=== PATIENT | female | born 1960 | race Caucasian/White ===

== ENCOUNTER 2022-08-09 11:28 | Outpatient (CLI) | payer BC, SELFPAY ==
[2022-08-09 18:39] LABS: Basophils Absolute Auto 0.1 K/mm3 (0.0-0.1); Eosinophils Absolute Auto 0.1 K/mm3 (0-0.3); Eosinophils Percent Auto 2.5 % (0-4.4); Hematocrit 41.4 % (37.0-47.0); Hemoglobin 13.8 g/dL (12.0-15.0); Immature Granulocyte Absolute 0.01 K/mm3 (0.00-0.031); Immature Granulocyte Percent A 0.2 % (0-0.5); Lymphocytes Absolute Auto 1.27 K/mm3 (0.9-3.2); Mean Corpuscular HGB Conc 33.3 g/dl (32-36); Monocytes Absolute Auto 0.5 K/mm3 (0.1-0.6); Neutrophils Percent Auto 60.3 % (45.5-73.1); Platelet Count Result 309 k/mm3 (150-375); Red Blood Count 4.45 M/mm3 (4.2-5.4); Red Cell Distribution Width 13.2 % (11.5-14.5); White Blood Count 4.9 K/mm3 (4.5-10.0)
[2022-08-09 20:13] LABS: Vitamin D 25 Hydroxy 20.9 ng/mL
[2022-08-09 20:25] LABS: Alanine Aminotransferase 46 U/L (6-35); Albumin Level 4.7 g/dL (3.5-5.1); Alkaline Phosphatase 100 U/L (38-126); Anion Gap 11 mmol/L (8-16); Aspartate Amino Transferase 73 U/L (14-36); Bilirubin,Total 0.4 mg/dL (0.2-1.3); Blood Urea Nitrogen 14 mg/dL (7-17); Calcium 9.8 mg/dL (8.4-10.2); Carbon Dioxide 28 mmol/L (22-30); Chloride 94 mmol/L (98-107); Cholesterol 244 mg/dL (0-200); Estimated Glomerular Filt Rate > 60; Glucose 107 mg/dL (65-110); HDL Direct 60 mg/dL; Potassium 3.8 mmol/L (3.4-5.0); Sodium 133 mmol/L (137-145); Triglycerides 150 mg/dL (<150)
[2022-08-09 20:37] LABS: LDL Cholesterol Direct 134 mg/dL
[2022-08-09 20:46] LABS: Hemoglobin A1C 6.1 % (<5.7)
[2022-08-09 21:19] LABS: Vitamin B12 > 1000.0 pg/mL (239-931)
== END 2022-08-09 11:29 | disposition home or self-care (01) ==
PROVIDERS: PCP Family Medicine; Visit Provider Family Medicine
DX: Z00.00 Encounter for general adult medical examination without abnormal findings (principal); E03.9 Hypothyroidism, unspecified; J45.909 Unspecified asthma, uncomplicated; T78.40XA Allergy, unspecified, initial encounter; F41.9 Anxiety disorder, unspecified; M19.90 Unspecified osteoarthritis, unspecified site; G43.909 Migraine, unspecified, not intractable, without status migrainosus; M81.0 Age-related osteoporosis without current pathological fracture; H40.9 Unspecified glaucoma; G62.9 Polyneuropathy, unspecified
CPT/HCPCS: 36415; 80053; 80061; 82306; 82607; 83036; 84443; 85025

== ENCOUNTER 2022-09-20 14:09 | Outpatient (CLI) | payer BC, SELFPAY ==
[2022-09-20 19:19] LABS: Alanine Aminotransferase 38 U/L (6-35); Albumin Level 4.4 g/dL (3.5-5.1); Alkaline Phosphatase 87 U/L (38-126); Aspartate Amino Transferase 47 U/L (14-36); Bilirubin,Total 0.3 mg/dL (0.2-1.3)
[2022-09-20 19:57] LABS: Hepatitis B Surface Antigen Negative (Negative)
[2022-09-20 20:03] LABS: HAV RESULT Negative (Negative); Hepatitis B Core IgM Result Negative (Negative)
[2022-09-20 20:15] LABS: Hepatitis C Virus Antibody Negative (Negative)
== END 2022-09-20 14:10 | disposition home or self-care (01) ==
LOC: ANHBWCLAB 14:11
PROVIDERS: PCP Family Medicine; Visit Provider Family Medicine
DX: R74.8 Abnormal levels of other serum enzymes (principal)
CPT/HCPCS: 36415; 80074; 80076

== ENCOUNTER → 2022-10-11 09:14 | Outpatient (CLI) | payer BC, SELFPAY ==
--- NOTE | ~2022-10-11 | US_ITS ---
US abdomen limited INDICATION: Elevated liver function tests. PROCEDURE: Realtime right upper abdominal ultrasound. COMPARISON: No prior studies for comparison. FINDINGS: The pancreas is normal without focal mass or pancreatic ductal dilation. Liver echotexture is increased, consistent with fatty infiltration. There is normal directional flow in the portal ve in. The gallbladder is normal without stones, gallbladder wall thickening or pericholecystic fluid. Comm on bile duct measures 4 mm. No sonographic Vivas's sign. IMPRESSION: 1: Hepatic steatosis. Reviewed, dictated and finalized at location A. OR PROPERTY MANAGER IMPRESSION: 1: Hepatic steatosis.
== END ==
PROVIDERS: PCP Family Medicine; Visit Provider Family Medicine
DX: R74.8 Abnormal levels of other serum enzymes (principal); R10.11 Right upper quadrant pain; K76.0 Fatty (change of) liver, not elsewhere classified
CPT/HCPCS: 76705

== ENCOUNTER 2022-11-29 09:46 | Outpatient (CLI) | payer BC, SELFPAY ==
[2022-11-29 10:30] LABS: Basophils Absolute Auto 0.1 K/mm3 (0.0-0.1); Basophils Percent Auto 1.2 % (0.2-1.2); Eosinophils Absolute Auto 0.2 K/mm3 (0-0.3); Eosinophils Percent Auto 3.3 % (0-4.4); Hematocrit 38.7 % (37.0-47.0); Hemoglobin 13.1 g/dL (12.0-15.0); Immature Granulocyte Absolute 0.01 K/mm3 (0.00-0.031); Immature Granulocyte Percent A 0.2 % (0-0.5); Lymphocytes Absolute Auto 1.31 K/mm3 (0.9-3.2); Lymphocytes Percent Auto 26.8 % (18.3-44.2); Mean Corpuscular HGB Conc 33.9 g/dl (32-36); Mean Corpuscular Hemoglobin 30.8 pg (26-34); Mean Corpuscular Volume 90.8 fl (80-100); Mean Platelet Volume 9.6 fl (7.4-10.4); Monocytes Absolute Auto 0.4 K/mm3 (0.1-0.6); Neutrophils Absolute Auto 2.9 K/mm3 (1.3-6.7); Neutrophils Percent Auto 59.5 % (45.5-73.1); Platelet Count Result 291 k/mm3 (150-375); Red Blood Count 4.26 M/mm3 (4.2-5.4); Red Cell Distribution Width 12.7 % (11.5-14.5); White Blood Count 4.9 K/mm3 (4.5-10.0)
[2022-11-29 10:41] LABS: Alanine Aminotransferase 40 U/L (6-35); Albumin Level 4.3 g/dL (3.5-5.1); Alkaline Phosphatase 90 U/L (38-126); Anion Gap 8 mmol/L (8-16); Aspartate Amino Transferase 34 U/L (14-36); Bilirubin,Total 0.4 mg/dL (0.2-1.3); Blood Urea Nitrogen 13 mg/dL (7-17); Calcium 9.2 mg/dL (8.4-10.2); Carbon Dioxide 26 mmol/L (22-30); Chloride 98 mmol/L (98-107); Estimated Glomerular Filt Rate > 60; Glucose 98 mg/dL (65-110); Potassium 3.7 mmol/L (3.4-5.0); Sodium 132 mmol/L (137-145)
[2022-11-29 10:43] LABS: Hemoglobin A1C 5.8 % (<5.7)
[2022-11-29 11:31] LABS: Vitamin B12 > 1000.0 pg/mL (239-931)
[2022-12-03 08:22] LABS: ANA Cascade Screen Negative (Negative)
[2022-12-03 20:37] LABS: Red Blood Cell Folate 576 ng/mL RBC (>280)
[2022-12-05 04:57] LABS: Homocysteine 6.8 umol/L (<10.4)
[2022-12-05 22:53] LABS: Methylmalonic Acid 92 nmol/L (87-318)
== END 2022-11-29 09:47 | disposition home or self-care (01) ==
LOC: ANHLAB 09:47
PROVIDERS: PCP Family Medicine; Visit Provider Student in an Organized Health Care Education/Training Program
DX: G62.9 Polyneuropathy, unspecified (principal)
CPT/HCPCS: 36415; 80053; 82607; 82747; 83036; 83090; 83921; 84443; 85025; 86038; 86334; 86335

== ENCOUNTER 2022-12-17 13:40 | Outpatient (CLI) | payer BC, SELFPAY ==
--- NOTE | ~2022-12-17 | MR_ITS ---
EXAMINATION: MR lumbar spine wo con DATE: 12/17/2022 14:13 INDICATION: Right-sided lumbar radiculopathy. TECHNIQUE: Magnetic resonance imaging (MRI) of the lumbar spine was performed without intravenous con trast. Sequences included sagittal T2-weighted FSE, sagittal T2-weighted FS FSE, sagittal T1-weighted FSE, and axial T2-weighted FSE. COMPARISON: None FINDINGS: Bone alignment is normal. Vertebral body heights are normal. Intervertebral disc heights ar e normal. The distal spinal cord signal intensity is normal. The conus medullaris is at T12-L1. The f ollowing disc levels are specifically discussed: L1-L2: The disc does not extend beyond the endplate margin. There is mild bilateral facet joint osteo arthritis. There is no neural foraminal stenosis. There is no central canal stenosis. L2-L3: The disc is bulging. There is mild right facet joint osteoarthritis. There is mild bilateral n eural foraminal stenosis. There is mild central canal stenosis. L3-L4: The disc is bulging. There is mild bilateral facet joint osteoarthritis. There is mild bilater al neural foraminal stenosis. There is mild central canal stenosis. L4-L5: The disc is bulging. There is severe bilateral facet joint osteoarthritis. There is mild bilat eral neural foraminal stenosis. There is mild central canal stenosis. L5-S1: The disc is bulging. There is moderate right and severe left facet joint osteoarthritis. There is mild bilateral neural foraminal stenosis. There is mild central canal stenosis. IMPRESSION: 1. Mild lumbar spondylosis. Reviewed, dictated and finalized at location A. ATIONS PROCESSOR IMPRESSION: 1. Mild lumbar spondylosis.
== END 2022-12-17 13:41 | disposition home or self-care (01) ==
LOC: ANHIMG 13:44
PROVIDERS: PCP Family Medicine; Visit Provider Student in an Organized Health Care Education/Training Program
DX: R20.0 Anesthesia of skin (principal); M47.896 Other spondylosis, lumbar region
CPT/HCPCS: 72148

== ENCOUNTER 2022-12-26 17:13 | Emergency (ER) | payer BC, SELFPAY ==
[2022-12-26] VITALS (19 sets, daily range): BP systolic 128–152; BP diastolic 88–104; PULSE 80–99; RESP 14–18; TEMP 36.7–37.2; O2SAT 95–100
--- NOTE | ~2022-12-26 | CT_ITS ---
EXAMINATION: CT abdomen pelvis w con DATE: 12/26/2022 18:38 INDICATION: llq pain, bloody diarrhea, hx diverticulitis TECHNIQUE: Computed tomography (CT) of the abdomen and pelvis was performed with intravenous contrast . Automated exposure control and iterative reconstruction technique were employed. The dose-length pr oduct was 948.91 mGy-cm. COMPARISON: None. FINDINGS: Lower thorax: Dependent atelectasis. Liver: Hepatomegaly. Diffuse fatty infiltration. Biliary/Gallbladder: Gallbladder is normal. No bile duct dilation. Pancreas: No mass or duct dilation. Spleen: Normal. Adrenals:No mass. Kidneys: No suspicious mass, stone, or hydronephrosis. Bilateral hypodensities, too small to characte rize but most likely represent cysts. GI tract: No small or large bowel dilation. Marked colonic wall edema involving the distal transverse colon and hepatic flexure, and to a lesser extent in the descending colon. Pericolonic inflammation at the hepatic flexure. Normal appendix. Uniform bowel wall enhancement. Diverticulosis without diver ticulitis. Mesentery/Peritoneum: No ascites, mass, or free air. Retroperitoneum: No mass. Mild atherosclerotic abdominal aortic and/or arterial calcifications. Pelvis: Pelvic organs are within normal limits. Soft Tissues: Soft tissues and body wall unremarkable. Bones: No acute osseous finding. IMPRESSION: Distal transverse colon, hepatic flexure, and descending colon wall edema and inflammatory changes, m ore consistent with infectious, inflammatory, or ischemic colitis rather than diverticulitis. Reviewed, dictated and finalized at location K. ENT FINANCIAL ADVOCATE IMPRESSION: Distal transverse colon, hepatic flexure, and descending colon wall edema and i nflammatory changes, more consistent with infectious, inflammatory, or ischemic colitis rather than diverticulitis.
--- NOTE | 2022-12-26 17:29 | ED.ABDPAIN ---
HPI - Abdominal Pain General Chief Complaint: Abdominal Pain <MC Carr Last Filed: 12/26/22 21:58> Stated Complaint: abd pain with blood in stool <MC Carr Last Filed: 12/26/22 21:58> Time Seen by Provider: 12/26/22 17:20 <MC Carr Last Filed: 12/26/22 21:58> History of Present Illness HPI narrative: 62 year old female with a history of diverticulitis, hypothyroidism here for evaluation of left lower quadrant abdominal pain over the past day. Patient states that she woke up with a crampy sensation in her lower abdomen that has remained throughout the day. The pain is severe in nature, coming in waves. States that she has had little appetite over the past day and has had associated nausea. Notes about 10 episodes of stool, several of which have had bright red blood mixed in. Has a history of diverticulitis and hemorrhoids, believes that she had blood in her stool with her last bout about 5 years ago. She has since had a colonoscopy that was reassuring. Denies any fevers, chills, chest pain, shortness of breath. Had a slight headache earlier today that resolved after taking her sumatriptan. She does not take blood thinner medicines. <MC Carr Last Filed: 12/26/22 21:58> Related Data Home Medications: Home Medications Medication Instructions Recorded Confirmed gabapentin 300 mg capsule 300 mg PO TID 08/09/22 lansoprazole 30 mg capsule,delayed 30 mg PO DAILY 08/09/22 release (Prevacid) levothyroxine 88 mcg capsule 88 mcg PO DAILY 08/09/22 losartan 100 1 tablet PO DAILY 08/09/22 mg-hydrochlorothiazide 25 mg tablet metformin 1,000 mg tablet 1,000 mg PO DAILY 08/09/22 rizatriptan 10 mg tablet 10 mg PO ONCE 08/09/22 timolol 0.5 % eye drops 1 drp EACH EYE Q12H 08/09/22 latanoprost 0.005 % eye drops, 1 drp EACH EYE QPM 10/18/22 emulsion <MC Carr Last Filed: 12/26/22 21:58> Allergies/Adverse Reactions: Allergies Allergy/AdvReac Type Severity Reaction Status Date / Time azithromycin AdvReac Severe dizzy Verified 12/26/22 17:18 <Irina Clark PA-C - Last Filed: 12/26/22 21:58> Review of Systems Review of Systems: Gen.: Denies fevers or chills Eyes: Denies eye pain or visual change ENT: Denies congestion Respiratory: Denies shortness of breath or cough CV: Denies chest pain or palpitations GI: Reports abdominal pain, nausea and diarrhea denies burning, urgency, frequency or hematuria Musculoskeletal: Denies back pain or muscle pain Neuro: Denies numbness, tingling, weakness or focal weakness Skin: Denies rash Except as documented, all other systems reviewed and negative <MC Carr Last Filed: 12/26/22 21:58> FOR[facility]LY [facility], [facility] Family History Family History: Family History Father Diabetes mellitus Hypertension Heart disease Mother Hypertension Disorder of thyroid Sibling Alcohol abuse Asthma Diabetes mellitus Depression <MC Carr Last Filed: 12/26/22 21:58> Social History Social History: Social History Smoking status: Never smoker Alcohol intake: never Substance use: never Substance use type: does not use Lack of Transportation: No Lack of Food: Never True Current Housing: I Have Housing Concerned About Future Housing: No Difficulty Paying Gas/Electric Bills: No Difficulty Paying for Meds: No Currently Unemployed: No Education: High School Diploma/GED Difficulty w/ Childcare or Family Care: No Living arrangements: with family Occupation/Education: occupation Additional occupation/education comments: [employer] service Gender identity (if verbalized by the patient): Female Agree to blood products: Yes <MC Carr [facility]
[2022-12-26] MEDS: ONDANSETRON INJ 4 MG/2 ML VIAL IV PUSH (17:52)
[2022-12-26] MEDS: MORPHINE SULFATE (*CRX) 4 MG/ML INJ IV PUSH (17:55)
[2022-12-26] MEDS: SODIUM CHLORIDE 0.9% IV 1,000 ML 999 ML IV CONT (17:58)
[2022-12-26 18:04] LABS: Basophils Percent Auto 0.3 % (0.2-1.2); Eosinophils Absolute Auto 0.1 K/mm3 (0-0.3); Eosinophils Percent Auto 0.7 % (0-4.4); Hematocrit 39.6 % (37.0-47.0); Hemoglobin 14.1 g/dL (12.0-15.0); Immature Granulocyte Absolute 0.02 K/mm3 (0.00-0.031); Immature Granulocyte Percent A 0.2 % (0-0.5); Lymphocytes Absolute Auto 1.42 K/mm3 (0.9-3.2); Lymphocytes Percent Auto 15.1 % (18.3-44.2); Mean Corpuscular HGB Conc 35.6 g/dl (32-36); Mean Corpuscular Hemoglobin 31.1 pg (26-34); Mean Corpuscular Volume 87.4 fl (80-100); Mean Platelet Volume 9.6 fl (7.4-10.4); Monocytes Absolute Auto 0.7 K/mm3 (0.1-0.6); Monocytes Percent Auto 7.6 % (2.6-8.5); Neutrophils Absolute Auto 7.1 K/mm3 (1.3-6.7); Neutrophils Percent Auto 76.1 % (45.5-73.1); Platelet Count Result 331 k/mm3 (150-375); Red Blood Count 4.53 M/mm3 (4.2-5.4); Red Cell Distribution Width 12.6 % (11.5-14.5); White Blood Count 9.4 K/mm3 (4.5-10.0)
[2022-12-26 18:14] LABS: Prothrombin Time 12.3 Seconds (11.1-14.7)
[2022-12-26 18:15] LABS: Partial Thromboplastin Time 25.6 SECONDS (22.3-36.8)
[2022-12-26 18:22] LABS: Alanine Aminotransferase 37 U/L (6-35); Albumin Level 4.9 g/dL (3.5-5.1); Alkaline Phosphatase 105 U/L (38-126); Anion Gap 8 mmol/L (8-16); Aspartate Amino Transferase 31 U/L (14-36); Bilirubin,Total 0.6 mg/dL (0.2-1.3); Blood Urea Nitrogen 13 mg/dL (7-17); Calcium 9.7 mg/dL (8.4-10.2); Carbon Dioxide 26 mmol/L (22-30); Chloride 97 mmol/L (98-107); Estimated CRCL calculation 106 ml/min; Estimated Glomerular Filt Rate > 60; Glucose 113 mg/dL (65-110); Lipase 44 U/L (23-300); Potassium 3.6 mmol/L (3.4-5.0); Sodium 131 mmol/L (137-145)
--- NOTE | 2022-12-26 18:36 | PC.NURSE ---
Patient off unit to CT.
--- NOTE | 2022-12-26 19:19 | PC.NURSE ---
Patient report given to RUTHANN Washburn and RUTHANN Jimenez. All questions answered and care of patient transferred.
[2022-12-26 19:28] LABS: Appearance Urine Clear (Clear); Bilirubin Urine Negative (Negative); Blood Urine Trace-lysed (Negative); Color Urine Yellow (Yellow); Glucose Urine UA Negative (Negative); Ketones Urine Negative (Negative); Leukocyte Esterase Ur Negative LEU/UL (Negative); Nitrate Urine Negative (Negative); Protein Urine Negative (Negative); Specific Grav Ur <= 1.005 (1.001-1.035); Urobilinogen Urine 0.2 mg/dL (<2.0)
[2022-12-26 19:37] LABS: Mucus Urine Rare /lpf; Squamous Epithelial Cell Urine Rare /hpf (Few); WBC Urine 0-3 /hpf
[2022-12-26 19:38] LABS: Add Urine Microscopic? YES
[2022-12-26] MEDS: CIPROFLOXACIN 500 MG TAB PO (20:54)
[2022-12-26] MEDS: metroNIDAZOLE 250 MG TABLET 500 MG PO (20:54)
== END 2022-12-26 20:57 | disposition home or self-care (01) ==
PROVIDERS: Emergency Medicine; Emergency Provider Physician Assistant; PCP Family Medicine
DX: K52.9 Noninfective gastroenteritis and colitis, unspecified (principal); E03.9 Hypothyroidism, unspecified
CPT/HCPCS: 36415; 74177; 80053; 81001; 83690; 85025; 85610; 85730; 96361; 96374; 96375; 99284; A9270; J2270; J2405; J7030; Q9967

== ENCOUNTER 2023-01-22 10:17 | Outpatient (CLI) | payer BC, SELFPAY ==
[2023-01-22 11:39] LABS: Hematocrit 38.5 % (37.0-47.0); Hemoglobin 13.3 g/dL (12.0-15.0); Mean Corpuscular HGB Conc 34.5 g/dl (32-36); Mean Corpuscular Hemoglobin 30.4 pg (26-34); Mean Corpuscular Volume 87.9 fl (80-100); Mean Platelet Volume 9.8 fl (7.4-10.4); Platelet Count Result 309 k/mm3 (150-375); Red Blood Count 4.38 M/mm3 (4.2-5.4); Red Cell Distribution Width 12.4 % (11.5-14.5); White Blood Count 6.2 K/mm3 (4.5-10.0)
[2023-01-22 12:07] LABS: Alanine Aminotransferase 33 U/L (6-35); Albumin Level 4.8 g/dL (3.5-5.1); Alkaline Phosphatase 104 U/L (38-126); Anion Gap 8 mmol/L (8-16); Aspartate Amino Transferase 28 U/L (14-36); Bilirubin,Total 0.7 mg/dL (0.2-1.3); Blood Urea Nitrogen 10 mg/dL (7-17); CRP 2.4 mg/dL (<1.0); Calcium 9.8 mg/dL (8.4-10.2); Carbon Dioxide 30 mmol/L (22-30); Chloride 96 mmol/L (98-107); Estimated Glomerular Filt Rate > 60; Glucose 114 mg/dL (65-110); Potassium 3.8 mmol/L (3.4-5.0); Sodium 134 mmol/L (137-145)
[2023-01-22 12:44] LABS: Erythrocyte Sedimentation Rate 34 mm/hr (0-20)
== END 2023-01-22 10:18 | disposition home or self-care (01) ==
LOC: ANHLAB 10:19
PROVIDERS: PCP Family Medicine; Visit Provider Nurse Practitioner Family
DX: R10.9 Unspecified abdominal pain (principal); R11.0 Nausea; R19.7 Diarrhea, unspecified
CPT/HCPCS: 36415; 80053; 85027; 85652; 86140

== ENCOUNTER 2023-01-24 11:25 | Outpatient (CLI) | payer BC, SELFPAY ==
[2023-01-24 19:11] LABS: Toxigenic C. Diff NEGATIVE (NEGATIVE)
== END 2023-01-24 11:26 | disposition home or self-care (01) ==
LOC: ANHLAB 11:27
PROVIDERS: PCP Family Medicine; Visit Provider Nurse Practitioner Family
DX: R11.0 Nausea (principal); R10.9 Unspecified abdominal pain; R19.7 Diarrhea, unspecified
CPT/HCPCS: 87045; 87177; 87209; 87269; 87427; 87493

== ENCOUNTER 2023-02-12 01:45 | Day surgery (SDC) | payer BC, SELFPAY ==
[2023-01-28 13:05] VITALS: BMI 35.9
[2023-02-12 08:08] VITALS: BP 136/95; PULSE 102; RESP 18; TEMP 36; O2SAT 100
[2023-02-12] MEDS: LACTATED RINGERS 1,000 ML 150 ML IV CONT (08:17)
--- NOTE | 2023-02-12 08:18 | WPDHPUPDATE1 ---
History and Physical Update Update Date/Time: 02/12/23 08:18 History and Physical has been reviewed, including an updated exam of the patient. There are NO changes in the patient's condition. Risks, benefits, and alternatives have been discussed and questions answered. Patient agrees to proceed with procedure.
[2023-02-12 08:21] LABS: Glucose Point of Care 125 mg/dl (65-105)
--- NOTE | 2023-02-12 08:28 | WPDANESEPPF ---
Anes - Initial Pre Proc Eval Procedure: Operation Date: 02/12/23 09:30 Proposed Procedures p Colonoscopy - Jose Jerez MD Date/Time: 02/12/23 08:28 Surgeon: Jose Jerez MD Pre Op Diagnosis: abnormal CAT scan,diarrhea,Lower abdom.pain Patient Data Age: 62 Gender: F Height: 1.6 m Weight: 90.5 kg Last Vital Signs Temp 36.0 C L 02/12/23 08:08 Pulse 102 H 02/12/23 08:08 Resp 18 02/12/23 08:08 BP 136/95 H 02/12/23 08:08 Pulse Ox 100 02/12/23 08:08 O2 Del Method Room Air 02/12/23 08:08 Allergies Allergy/AdvReac Type Severity Reaction Status Date / Time azithromycin AdvReac Severe dizzy Verified 02/12/23 07:57 Home Medications Medication Instructions Recorded Confirmed Type gabapentin 300 mg capsule 300 mg PO TID 08/09/22 02/12/23 History lansoprazole 30 mg capsule,delayed 30 mg PO DAILY 08/09/22 02/12/23 History release (Prevacid) levothyroxine 88 mcg capsule 88 mcg PO DAILY 08/09/22 02/12/23 History losartan 100 1 tablet PO DAILY 08/09/22 02/12/23 History mg-hydrochlorothiazide 25 mg tablet metformin 1,000 mg tablet 1,000 mg PO DAILY 08/09/22 02/12/23 History timolol 0.5 % eye drops 1 drp EACH EYE Q12H 08/09/22 02/12/23 History fluticasone 250 mcg-salmeterol 50 1 inh inhalation BID #60 ea 09/20/22 02/12/23 Rx mcg/dose blistr powdr for inhalation (Advair Diskus) cetirizine 10 mg tablet (Zyrtec) 10 mg PO DAILY #90 tabs 10/14/22 02/12/23 Rx mometasone 50 mcg/actuation nasal 2 spray intranasal DAILY #17 grams 10/14/22 02/12/23 Rx spray latanoprost 0.005 % eye drops, 1 drp EACH EYE QPM 10/18/22 02/12/23 History emulsion rizatriptan 10 mg tablet See Rx Instructions PO .COMPLEX 10/31/22 02/12/23 Rx #30 tabs cholecalciferol (vitamin D3) 1,250 1,250 mcg PO WEEKLY #14 caps 11/22/22 02/12/23 Rx mcg (50,000 unit) capsule Laboratory Tests 02/12/23 08:19 POC Capillary Glucose 125 mg/dl H mg/dl (65-105) Patient hx anesthesia problems: none Family hx anesthesia problems: none Results Review: All pre-operative results and documents have been reviewed as part of the pre-operative evaluation. FORMERLY [facility] Past Medical History Medical History (Updated 02/12/23 @ 08:30 by Lonnie Cordoba MD) Abdominal pain Arthritis Asthma Diarrhea Glaucoma Hypertension Hypothyroidism YAJAIRA (obstructive sleep apnea) Osteoporosis Family History Family History Father Diabetes mellitus Hypertension Heart disease Mother Hypertension Disorder of thyroid Sibling Alcohol abuse Asthma Diabetes mellitus Depression Social History Social History Smoking status: Never smoker Alcohol intake: never Substance use: never Substance use type: does not use Lack of Transportation: No Lack of Food: Never True Current Housing: I Have Housing Concerned About Future Housing: No Difficulty Paying Gas/Electric Bills: No Difficulty Paying for Meds: No Currently Unemployed: No Education: High School Diploma/GED Difficulty w/ Childcare or Family Care: No Living arrangements: with family Occupation/Education: occupation Additional occupation/education comments: [employer] service Gender identity (if verbalized by the patient): Female Spiritual care concerns: No Agree to blood products: Yes Anes - Eval Final PreProcedure Day of Procedure 02/12/23 08:28 Patient weight: obese Heart: regular rate and rhythm Lungs: clear to auscultation and normal air movement Airway: Mallampati scale class II Neurological: alert and oriented Last oral intake: >/= 8 hours ASA classification: III Emergent: no Anesthetic plan: proceed Anesthesia type and monitoring: general GIVS Results Review: All pre-operative results and documents have been reviewed as part of the pre-operative evaluation. Informed Consent: The patient's a
[2023-02-12 09:12] VITALS: BP 101/66; PULSE 99; RESP 26; O2SAT 97
[2023-02-12 09:22] VITALS: BP 119/86; PULSE 77; RESP 18; O2SAT 99
[2023-02-12 09:32] VITALS: BP 121/81; PULSE 76; RESP 18; O2SAT 97
== END 2023-02-12 09:39 | disposition home or self-care (01) ==
PROVIDERS: PCP Family Medicine; Visit Provider Internal Medicine Gastroenterology
PROC: 0DJD8ZZ Inspection of Lower Intestinal Tract, Via Natural or Artificial Opening Endoscopic (ICD-10-PCS; CPT 45378; principal; 2023-02-12 09:30)
DX: K64.8 Other hemorrhoids (principal); K57.30 Diverticulosis of large intestine without perforation or abscess without bleeding; I10 Essential (primary) hypertension; E03.9 Hypothyroidism, unspecified; J45.909 Unspecified asthma, uncomplicated; H40.9 Unspecified glaucoma; M81.0 Age-related osteoporosis without current pathological fracture; Z79.84 Long term (current) use of oral hypoglycemic drugs; Z79.51 Long term (current) use of inhaled steroids; E66.9 Obesity, unspecified; Z68.35 Body mass index [BMI] 35.0-35.9, adult
CPT/HCPCS: 45378; 82948; J2704; J7120

== ENCOUNTER 2023-02-28 10:00 | Outpatient (CLI) | payer BC, SELFPAY ==
--- NOTE | 2023-02-28 11:00 | NEURO_ITS ---
Impression: Patient reports a history of numbness in toes. # Normal nerve conduction study. # Normal needle/EMG exam. # Clinical correlation recommended. Nerve Conduction Studies Anti Sensory Summary Table Stim Site NR Peak (ms) P-T Amp (?V) Site1 Site2 Delta-P (ms) Dist (cm) Nito (m/s) Left Sup Fibular Anti Sensory (Ant Lat Mall) 14 cm 3.8 5.4 14 cm Ant Lat Mall 3.8 16.0 42 Right Sup Fibular Anti Sensory (Ant Lat Mall) 14 cm 3.5 8.7 14 cm Ant Lat Mall 3.5 16.0 46 Left Sural Anti Sensory (Lat Mall) Calf 4.0 7.1 Calf Lat Mall 4.0 16.0 40 Right Sural Anti Sensory (Lat Mall) Calf 3.6 11.7 Calf Lat Mall 3.6 16.0 44 Motor Summary Table Stim Site NR Onset (ms) O-P Amp (mV) Site1 Site2 Delta-0 (ms) Dist (cm) Nito (m/s) Left Peroneal Motor (Vastus Med) Ankle 4.1 4.1 Popit Ankle 7.9 38.0 48 Popit 12.0 3.3 B Fib Ankle 6.1 28.0 46 B Fib 10.2 3.2 Right Peroneal Motor (Vastus Med) Ankle 3.7 4.8 Popit Ankle 9.3 41.0 44 Popit 13.0 3.8 B Fib Ankle 6.8 31.0 46 B Fib 10.5 3.8 Left Tibial Motor (Abd Mandel Brev) Ankle 4.1 10.8 Knee Ankle 8.5 41.0 48 Knee 12.6 6.2 Right Tibial Motor (Abd Mandel Brev) Ankle 4.1 9.3 Knee Ankle 9.4 42.0 45 Knee 13.5 4.9 F Wave Studies NR F-Lat (ms) L-R F-Lat (ms) Left Peroneal (Mrkrs) (EDB) 49.18 0.19 Right Peroneal (Mrkrs) (EDB) 49.38 0.19 Left Tibial (Mrkrs) (Abd Hallucis) 49.59 0.16 Right Tibial (Mrkrs) (Abd Hallucis) 49.43 0.16 EMG Side Muscle Nerve Root Ins Act Fibs Amp Dur Recrt Comment Right AntTibialis Dp Br Fibular L4-5 Nml Nml Nml Nml Nml Right Gastroc Tibial S1-2 Nml Nml Nml Nml Nml Right Fibularis Long Sup Br Fibular L5-S1 Nml Nml Nml Nml Nml Right Flex Dig Long Tibial L5-S2 Nml Nml Nml Nml Nml Right Ext Dig Brev Dp Br Fibular L5, S1 Nml Nml Nml Nml Nml Left AntTibialis Dp Br Fibular L4-5 Nml Nml Nml Nml Nml Left Gastroc Tibial S1-2 Nml Nml Nml Nml Nml Left Fibularis Long Sup Br Fibular L5-S1 Nml Nml Nml Nml Nml Left Flex Dig Long Tibial L5-S2 Nml Nml Nml Nml Nml Left Ext Dig Brev Dp Br Fibular L5, S1 Nml Nml Nml Nml Nml MTDD
== END 2023-02-28 10:01 | disposition home or self-care (01) ==
LOC: ANHNEURO 10:01
PROVIDERS: PCP Family Medicine; Visit Provider Student in an Organized Health Care Education/Training Program
DX: G62.9 Polyneuropathy, unspecified (principal)
CPT/HCPCS: 95886; 95910

== ENCOUNTER 2023-03-10 13:36 | Emergency (ER) | payer BC, SELFPAY ==
[2023-03-10] VITALS (11 sets, daily range): BP systolic 126–155; BP diastolic 96–100; PULSE 89–90; RESP 16–18; TEMP 36.4; O2SAT 96–100
--- NOTE | ~2023-03-10 | CT_ITS ---
EXAMINATION: CTA chest abdomen pelvis DATE: 03/10/2023 15:33 INDICATION: Shortness of breath. Back and abdominal pain. TECHNIQUE: Computed tomographic angiography (CTA) of the chest, abdomen, and pelvis was performed wit h 100 mL Omnipaque-350 intravenous contrast. Automated exposure control and iterative reconstruction technique were employed. The dose-length product was 1464.68 mGy-cm. Maximum intensity projection 3D- reconstructions of the aorta and other arteries were constructed by the technologist on a separate wo rkstation. COMPARISON: CT abdomen and pelvis 12/26/2022 FINDINGS: CHEST CTA: The lungs demonstrate mild atelectasis. No pleural effusion. The heart size is normal. No pericardial effusion. There is ectasia of ascending aorta measuring 4.7 cm. There is no pulmonary embolus. There are bridging endplate osteophytes at multiple levels in the spine, consistent with diffuse idiopathi c skeletal hyperostosis (DISH). ABDOMEN AND PELVIS CTA: The liver is normal. The gallbladder is distended and demonstrates wall thickening. The spleen, pancr eas, adrenal glands, and right kidney are normal. There is a 5 mm cyst in left kidney. There is diver ticulosis of the colon without evidence of diverticulitis. The appendix is normal. There are no patho logically enlarged lymph nodes. There is no free intraperitoneal fluid. Abdominal aorta is normal in caliber. There is mild aortic atherosclerosis. There is no significant stenosis of celiac axis, super ior mesenteric artery, the renal arteries, or inferior mesenteric artery. There is mild lumbar spondy losis. IMPRESSION: 1. Acute cholecystitis. 2. Ectasia of ascending aorta measuring 4.7 cm. No dissection. Reviewed, dictated and finalized at location A.
--- NOTE | 2023-03-10 13:53 | ED.BACK ---
HPI - Back Pain/Injury General Chief Complaint: Back Pain/Injury Stated Complaint: back pain Time Seen by Provider: 03/10/23 13:39 History of Present Illness HPI Narrative: 62-year-old female presented the ED for evaluation of cute onset of right back pain. Patient states while she was attempting to move a cooler she had onset of right sided back pain that radiates around to her abdomen. Patient does describe pain in her upper back that radiates to her lower back and radiates to her right flank into her abdomen. Patient states she did have associated shortness of breath with this. Patient denies any prior history of gallbladder disease. Related Data Allergies Allergy/AdvReac Type Severity Reaction Status Date / Time azithromycin Allergy Nausea Verified 03/10/23 13:54 [From Zithromax Z-Jose R] Review of Systems Review of Systems: All systems reviewed & are unremarkable except as noted in HPI and below Exam Narrative: APPEARANCE: Distress secondary to pain HEAD: normocephalic, atraumatic. EYES: PERRLA/EOMI, conjunctivae clear. NOSE: Normal no drainage EARS:TMS clear with good light reflex. THROAT: Pharynx clear, no exudate. NECK: Supple. No adenopathy, no masses. RESPIRATORY: Airway patent, respirations nonlabored. Clear to auscultation bilaterally, no rales, rhonchi, wheezing. CARDIOVASCULAR: Regular rate and rhythm without murmurs rubs or gallops. ABDOMINAL: Tenderness and abdomen including midline and right upper quadrant MUSCULOSKELETAL: Moves all extremities. Tenderness to right back thoracic spine and right CVA NEURO: Alert. Cranial nerves II through XII intact. Grossly intact SKIN: Warm, dry. Normal Color Course Course Emergency Course: 62-year-old female presented the emergency department for evaluation of right CVA and right upper quadrant pain. Patient states pain started approximate 2 hours prior to arrival. Patient does feel improved since arrival. Patient is afebrile with no leukocytosis. Patient has a mildly elevated AST and ALT. Patient has no elevation of T. bili or alk phos. CT scan showed evidence of acute cholecystitis. Case was discussed with Dr. Mensah on for surgery. He was comfortable with the patient having close follow-up with her primary care physician and then outpatient follow-up with surgery as needed. Patient prefers not to be admitted and states she feels improved enough for discharge to home. Patient and were comfortable with the plan for discharge and close follow-up. Vital Signs Vital signs: Vital Signs Temperature 97.5 F L 03/10/23 13:39 Pulse Rate 89 03/10/23 13:39 Respiratory Rate 18 03/10/23 13:39 Blood Pressure 155/96 H 03/10/23 13:39 Pulse Oximetry 99 03/10/23 13:39 Oxygen Delivery Room Air 03/10/23 13:39 Temperature 97.5 F L 03/10/23 13:39 Pulse Rate 90 03/10/23 16:22 Respiratory Rate 16 03/10/23 16:22 Blood Pressure 135/99 H 03/10/23 16:22 Pulse Oximetry 96 03/10/23 16:22 Oxygen Delivery Room Air 03/10/23 13:39 MDM - Back Pain/Injury Differential Diagnosis Differential diagnosis: Likely renal colic, pyelonephritis and thoracic back pain Lab Data Attestation: I reviewed the patient's lab results. 03/10/23 14:12 03/10/23 14:12 Labs: Lab Results 03/10/23 Range/Units 14:12 WBC 6.5 (4.5-10.0) K/mm3 RBC 4.38 (4.2-5.4) M/mm3 Hgb 13.6 (12.0-15.0) g/dL Hct 39.1 (37.0-47.0) % MCV 89.3 (80-100) fl MCH 31.1 (26-34) pg MCHC 34.8 (32-36) g/dl RDW 12.6 (11.5-14.5) % Plt Count 312 (150-375) k/mm3 MPV 9.6 (7.4-10.4) fl Immature Gran % (Auto) 0.3 (0-0.5) % Neut % (Auto) 70.8 (45.5-73.1) % Lymph % (Auto) 17.7 L (18.3-44.2) % Terry % (Auto) 8.6 H (2.6-8.5) % Eos % (Auto) 1.8 (0-4.4) % Baso % (Auto) 0.8 (0.2-1.2) % Lymph # (Auto) 1.15 (0.9-3.2) K/mm3 Terry # (Auto) 0.6 (0.1-0.6) K/mm3 Eos # (Auto) 0.1 (0-0.3) K/mm3 Baso # (Auto) 0.1
[2023-03-10 14:22] LABS: Basophils Absolute Auto 0.1 K/mm3 (0.0-0.1); Basophils Percent Auto 0.8 % (0.2-1.2); Eosinophils Absolute Auto 0.1 K/mm3 (0-0.3); Eosinophils Percent Auto 1.8 % (0-4.4); Hematocrit 39.1 % (37.0-47.0); Hemoglobin 13.6 g/dL (12.0-15.0); Immature Granulocyte Absolute 0.02 K/mm3 (0.00-0.031); Immature Granulocyte Percent A 0.3 % (0-0.5); Lymphocytes Absolute Auto 1.15 K/mm3 (0.9-3.2); Lymphocytes Percent Auto 17.7 % (18.3-44.2); Mean Corpuscular HGB Conc 34.8 g/dl (32-36); Mean Corpuscular Hemoglobin 31.1 pg (26-34); Mean Corpuscular Volume 89.3 fl (80-100); Mean Platelet Volume 9.6 fl (7.4-10.4); Monocytes Absolute Auto 0.6 K/mm3 (0.1-0.6); Monocytes Percent Auto 8.6 % (2.6-8.5); Neutrophils Absolute Auto 4.6 K/mm3 (1.3-6.7); Neutrophils Percent Auto 70.8 % (45.5-73.1); Platelet Count Result 312 k/mm3 (150-375); Red Blood Count 4.38 M/mm3 (4.2-5.4); Red Cell Distribution Width 12.6 % (11.5-14.5); White Blood Count 6.5 K/mm3 (4.5-10.0)
[2023-03-10 14:36] LABS: INR 0.9; Partial Thromboplastin Time 25.4 SECONDS (22.3-36.8); Prothrombin Time 12.1 Seconds (11.1-14.7)
[2023-03-10 14:38] LABS: Appearance Urine Clear (Clear); Bacteria Urine None Seen /hpf; Bilirubin Urine Negative (Negative); Blood Urine Negative (Negative); Color Urine Yellow (Yellow); Glucose Urine UA Negative (Negative); Ketones Urine Negative (Negative); Leukocyte Esterase Ur Trace LEU/UL (Negative); Nitrate Urine Negative (Negative); Non Pathogenic Casts 0-2; Protein Urine 1+ mg/dL (Negative); Specific Grav Ur 1.019 (1.001-1.035); Squamous Epithelial Cell Urine None seen /hpf (Few); Urobilinogen Urine 0.2 mg/dL (<2.0); pH Urine 8.5 (5.0-9.0)
[2023-03-10 14:44] LABS: Add Urine Microscopic? YES
[2023-03-10 14:47] LABS: Lactic Acid Reflex 2.1 mmol/L (0.7-2.0)
[2023-03-10 14:48] LABS: Alanine Aminotransferase 48 U/L (6-35); Albumin Level 4.8 g/dL (3.5-5.1); Alkaline Phosphatase 93 U/L (38-126); Anion Gap 10 mmol/L (8-16); Aspartate Amino Transferase 55 U/L (14-36); Bilirubin,Total 0.5 mg/dL (0.2-1.3); Blood Urea Nitrogen 16 mg/dL (7-17); Calcium 9.6 mg/dL (8.4-10.2); Carbon Dioxide 27 mmol/L (22-30); Chloride 97 mmol/L (98-107); Estimated CRCL calculation 92 ml/min; Estimated Glomerular Filt Rate > 60; Glucose 101 mg/dL (65-110); Potassium 3.5 mmol/L (3.4-5.0); Sodium 134 mmol/L (137-145)
[2023-03-10 17:20] LABS: Reflex Lactic Acid Yes or No Add Lactic
== END 2023-03-10 16:35 | disposition home or self-care (01) ==
PROVIDERS: Emergency Provider Emergency Medicine; PCP Family Medicine
DX: M54.9 Dorsalgia, unspecified (principal); R10.11 Right upper quadrant pain; K81.0 Acute cholecystitis; I77.819 Aortic ectasia, unspecified site
CPT/HCPCS: 36415; 71275; 74174; 80053; 81001; 83605; 85025; 85610; 85730; 87086; 87088; 99284; Q9967

== ENCOUNTER 2023-03-19 15:13 | Outpatient (CLI) | payer BC, SELFPAY ==
[2023-03-19 15:26] LABS: Hematocrit 38.3 % (37.0-47.0); Hemoglobin 13.1 g/dL (12.0-15.0); Mean Corpuscular HGB Conc 34.2 g/dl (32-36); Mean Corpuscular Hemoglobin 30.8 pg (26-34); Mean Corpuscular Volume 89.9 fl (80-100); Mean Platelet Volume 9.4 fl (7.4-10.4); Platelet Count Result 308 k/mm3 (150-375); Red Blood Count 4.26 M/mm3 (4.2-5.4); Red Cell Distribution Width 12.6 % (11.5-14.5); White Blood Count 6.4 K/mm3 (4.5-10.0)
[2023-03-19 15:41] LABS: Alanine Aminotransferase 38 U/L (6-35); Albumin Level 4.6 g/dL (3.5-5.1); Alkaline Phosphatase 87 U/L (38-126); Amylase 87 U/L (30-110); Anion Gap 10 mmol/L (8-16); Aspartate Amino Transferase 32 U/L (14-36); Bilirubin,Total 0.4 mg/dL (0.2-1.3); Blood Urea Nitrogen 17 mg/dL (7-17); Calcium 9.5 mg/dL (8.4-10.2); Carbon Dioxide 29 mmol/L (22-30); Chloride 91 mmol/L (98-107); Estimated Glomerular Filt Rate > 60; Glucose 98 mg/dL (65-110); Lipase 79 U/L (23-300); Potassium 3.9 mmol/L (3.4-5.0); Sodium 130 mmol/L (137-145)
== END 2023-03-19 15:14 | disposition home or self-care (01) ==
LOC: ANHLAB 15:15
PROVIDERS: PCP Family Medicine; Visit Provider Nurse Practitioner Family
DX: K81.0 Acute cholecystitis (principal)
CPT/HCPCS: 36415; 80053; 82150; 83690; 85027

== ENCOUNTER 2023-04-02 14:27 | Outpatient (CLI) | payer BC, SELFPAY ==
--- NOTE | 2023-04-02 14:38 | ECG_ITS ---
Measurements Intervals [place] Rate: 78 P: 35 [place]: 155 QRS: -7 QRSD: 84 T: 39 QT: 344 QTc: 393 Interpretive Statements SINUS RHYTHM BASELINE ARTIFACT- I, II, III, AVR, AVL, AVF NORMAL ECG NO PREVIOUS ECG AVAILABLE FOR COMPARISON Electronically Signed On 04-02-2023 15:40:07 CDT by Agustin Krishnamurthy D.O.
[2023-04-02 15:04] LABS: Sodium 127 mmol/L (137-145)
== END 2023-04-02 14:28 | disposition home or self-care (01) ==
LOC: ANHSURGERY 14:32
PROVIDERS: Anesthesiology; PCP Family Medicine; Visit Provider Surgery
DX: E87.1 Hypo-osmolality and hyponatremia (principal); K81.1 Chronic cholecystitis; I10 Essential (primary) hypertension
CPT/HCPCS: 36415; 84295; 86850; 86900; 86901; 93005

== ENCOUNTER 2023-04-04 15:03 | Outpatient (CLI) | payer BC, SELFPAY ==
--- NOTE | ~2023-04-04 | XR_ITS ---
EXAMINATION: XR shoulder LT min 2V DATE: 04/04/2023 15:12 INDICATION: Left shoulder pain. TECHNIQUE: 4 views of left shoulder were obtained. COMPARISON: None. FINDINGS: Bone alignment is normal. No fracture. There is mild osteoarthritis of glenohumeral joint a nd moderate osteoarthritis of acromioclavicular joint. IMPRESSION: 1. Polyarticular osteoarthritis. Reviewed, dictated and finalized at location A.
[2023-04-04 18:49] LABS: Sodium Urine Random 15 meq/L
[2023-04-04 18:57] LABS: Appearance Urine Clear (Clear); Bilirubin Urine Negative (Negative); Blood Urine Negative (Negative); Color Urine Yellow (Yellow); Glucose Urine UA Negative (Negative); Ketones Urine Negative (Negative); Leukocyte Esterase Ur Negative LEU/UL (NEGATIVE); Nitrate Urine Negative (Negative); Protein Urine Negative (Negative); pH Urine 6.5 (5.0-9.0)
[2023-04-04 18:59] LABS: Add Urine Microscopic? NO
== END 2023-04-04 15:04 | disposition home or self-care (01) ==
LOC: ANHBWCLAB 15:04
PROVIDERS: PCP Family Medicine; Visit Provider Nurse Practitioner
DX: M19.012 Primary osteoarthritis, left shoulder (principal); E87.1 Hypo-osmolality and hyponatremia
CPT/HCPCS: 73030; 81003; 84300

== ENCOUNTER 2023-04-05 03:31 | Day surgery (SDC) | payer BC, SELFPAY ==
[2023-03-28 11:19] VITALS: BMI 35.6
--- NOTE | 2023-03-28 11:25 | PC.NURSE ---
Report to the Outpatient Waiting Room, entrance under the green pavilion located off [facility], at time 11:30 on date 04/05/23. Planned Procedure Time: 1:30. Time changes happen often and if your time is changed the preop area will call you the afternoon before. - You and your visitor will be asked to self-screen and do not enter if you have any COVID symptoms. - A mask is optional within the hospital at this time. Patients may have clear liquids (water, carbonated beverages, clear teas, apple juice) until 3 hours prior to surgery (10:30) with a maximum of 20 ounces. - No food from midnight until time of surgery Take the following medications with a SIP of water the morning of surgery: ANTIBIOTIC, GABAPENTIN, LEVOTHYROXINE, TIMOLOL EYE DROPS. IF NEEDED: CYCLOBENZAPRINE, PAIN PILL, INHALER DO NOT STOP ANY OF YOUR OTHER PRESCRIPTION MEDICATIONS PRIOR TO SURGERY?EXCEPT THE FOLLOWING Medications to discontinue per physician: VITAMINS/SUPPLEMENTS Date to take last dose: 04/01/23 Please no make-up, nail danish, hairspray, perfume, deodorant, or body powder the day of surgery. No jewelry (including any body piercings) or valuables the day of surgery, leave them at home. Please take a shower or bath the night before, or the morning of, surgery with an antibacterial soap (HIBICLENS). Wear comfortable, loose fitting clothing. - Jewelry must be removed prior to entering the operating room. Rings and piercings that are not removed may be cut off. - The hospital will not accept responsibility for valuables. - Please leave all valuables, including medications, at home the day of surgery. If you are going home after surgery, a licensed front end driver must drive you home. - NO public transportation without another adult if you receive anesthesia. - We recommend that an adult stay with you for 24 hours following discharge. - We also recommend that you do not drive, make important decision, drink alcoholic beverages, or take any drugs that were not prescribed by your health care provider for at least 24 hours after your discharge time. Follow any additional instructions given to you from your surgeon. If you or anyone in your household have experienced Covid symptoms in the past week, please notify your surgeon or the nurse liaison at the phone number below for possible testing. Telephone instructions given to PT - GIOVANNA WHEALEN and asked if any additional questions and then verbalized understanding. Patient advised to call surgeon office or pre surgery nurse liaison [phone] if any additional questions.
[2023-04-05] VITALS (10 sets, daily range): BP systolic 101–131; BP diastolic 70–102; PULSE 85–98; RESP 12–16; TEMP 36.4–36.9; O2SAT 93–100
--- NOTE | 2023-04-05 11:53 | WPDHPUPDATE1 ---
History and Physical Update Update Date/Time: 04/05/23 11:53 History and Physical has been reviewed, including an updated exam of the patient. There are NO changes in the patient's condition. Risks, benefits, and alternatives have been discussed and questions answered. Patient agrees to proceed with procedure.
[2023-04-05] MEDS: ACETAMINOPHEN 500 MG TABLET 1000 MG PO (12:15)
[2023-04-05] MEDS: LACTATED RINGERS 1,000 ML 30 ML IV CONT ×2 (12:20→14:20)
[2023-04-05 12:33] LABS: Glucose Point of Care 100 mg/dl (65-105)
[2023-04-05 12:44] LABS: Sodium 130 mmol/L (137-145)
--- NOTE | 2023-04-05 13:01 | WPDANESEPPF ---
Anes - Initial Pre Proc Eval Procedure: Operation Date: 04/05/23 13:30 Proposed Procedures p Laparoscopic Cholecystectomy, Possible Open - Gildardo Bedolla MD Date/Time: 04/05/23 13:01 Surgeon: Gildardo Bedolla MD Pre Op Diagnosis: chronic cholecystitis Patient Data Age: 62 Gender: F Height: 1.6 m Weight: 91.1 kg Last Vital Signs Temp 36.9 C 04/05/23 12:49 Pulse 94 04/05/23 12:49 Resp 16 04/05/23 12:49 BP 112/79 04/05/23 12:49 Pulse Ox 98 04/05/23 12:49 O2 Del Method Room Air 04/05/23 12:49 Allergies Allergy/AdvReac Type Severity Reaction Status Date / Time azithromycin AdvReac Severe dizzy Verified 04/05/23 12:00 Home Medications Medication Instructions Recorded Confirmed Type gabapentin 300 mg capsule 300 mg PO TID 08/09/22 04/05/23 History lansoprazole 30 mg capsule,delayed 30 mg PO DAILY 08/09/22 04/04/23 History release (Prevacid) levothyroxine 88 mcg capsule 88 mcg PO DAILY 08/09/22 04/05/23 History metformin 1,000 mg tablet 1,000 mg PO DAILY 08/09/22 04/05/23 History timolol 0.5 % eye drops 1 drp EACH EYE Q12H 08/09/22 04/05/23 History fluticasone 250 mcg-salmeterol 50 1 inh inhalation BID #60 ea 09/20/22 04/05/23 Rx mcg/dose blistr powdr for inhalation (Advair Diskus) cetirizine 10 mg tablet (Zyrtec) 10 mg PO DAILY #90 tabs 10/14/22 04/05/23 Rx mometasone 50 mcg/actuation nasal 2 spray intranasal DAILY #17 grams 10/14/22 04/04/23 Rx spray latanoprost 0.005 % eye drops, 1 drp EACH EYE QPM 10/18/22 04/05/23 History emulsion rizatriptan 10 mg tablet See Rx Instructions PO .COMPLEX 10/31/22 04/05/23 Rx #30 tabs cholecalciferol (vitamin D3) 1,250 1,250 mcg PO WEEKLY #14 caps 11/22/22 04/05/23 Rx mcg (50,000 unit) capsule ondansetron 4 mg disintegrating 4 mg PO Q6H PRN Nausea And Vomiting 03/28/23 04/05/23 History tablet cyclobenzaprine 10 mg tablet 10 mg PO BID PRN muscle spasm #14 04/04/23 04/05/23 Rx tabs hydrocodone 5 mg-acetaminophen 325 1 tablet PO Q12H PRN pain #14 tabs 04/04/23 04/05/23 Rx mg tablet losartan 100 mg tablet 100 mg PO DAILY #60 tabs 04/04/23 04/05/23 Rx Laboratory Tests 04/05/23 04/05/23 12:08 12:31 Sodium 130 L mmol/L (137-145) POC Capillary Glucose 100 mg/dl (65-105) Patient hx anesthesia problems: none Family hx anesthesia problems: none Results Review: All pre-operative results and documents have been reviewed as part of the pre-operative evaluation. [facility] Past Medical History Medical History Abdominal pain Acute cholecystitis Arthritis Asthma Diarrhea Glaucoma Hypertension Hypothyroidism YAJAIRA (obstructive sleep apnea) Osteoporosis Surgical History Surgical History History of surgery on arm Left and Right for tendonitis History of toe surgery Right foot Family History Family History Father Diabetes mellitus Hypertension Heart disease Mother Hypertension Disorder of thyroid Sibling Alcohol abuse Asthma Diabetes mellitus Depression Social History Social History Smoking status: Never smoker Alcohol intake: never Substance use: never Substance use type: does not use Lack of Transportation: No Lack of Food: Never True Current Housing: I Have Housing Concerned About Future Housing: No Difficulty Paying Gas/Electric Bills: No Difficulty Paying for Meds: No Currently Unemployed: No Education: High School Diploma/GED Difficulty w/ Childcare or Family Care: No Living arrangements: with family Occupation/Education: occupation Additional occupation/education comments: [email or web address] Gender identity (if verbalized by the patient): Female Spiritual care concerns: No Agree to blood produ
[2023-04-05] MEDS: KETOROLAC 15 MG/ML VIAL (*BKC) IV PUSH (13:19)
[2023-04-05] MEDS: ceFAZolin 2 GM/D5W 50 ML 2 GM/50 ML BAG IVPB (13:22)
[2023-04-05] MEDS: LIDO 1%/EPINEPHRINE 1:100,000 20 ML VIAL 40 ML INFILTRATE (13:40)
--- NOTE | 2023-04-05 15:00 | W.PM.PROC2 ---
Procedure Note - Detailed Date of Procedure 04/05/23 Pre-op Diagnosis Chronic cholecystitis Post-op Diagnosis Same Procedure Performed Laparoscopic cholecystectomy Surgeon Gildardo Bedolla MD [employer] SHAILESH Strickland Anesthesia General Indications The patient is a 62-year-old female who complained of having or epigastric right upper abdominal pain especially worse with eating. Imaging suggesting chronic cholecystitis. She presents now for a elective laparoscopic cholecystectomy. Findings Gallbladder wall was minimally thickened. No adhesions of the stomach, duodenum or omentum to the gallbladder, no stones were palpated in the gallbladder. Description of Procedure After informed consent was obtained, the patient was taken to the operating room she was placed supine position and then general endotracheal anesthesia was administered. The abdomen was then prepped and draped in usual sterile fashion. A time-out was then performed correctly identifying the patient as well as procedure to be performed. She was given perioperative IV antibiotics. I 1st entered the abdomen in the left upper quadrant utilizing a 5mm Optiview port. I insufflated to adequate pneumoperitoneum of 15mmHg of CO2. There were no adhesions around the umbilicus then I placed a 5mm Optiview port in the periumbilical position as well as a 10mm epigastric port and 2 more 5mm of right subcostal ports. Looking at the gallbladder it had mild distention with some minimal thickening of the gallbladder wall. It was held with a laparoscopic grasper at the dome and elevated over the right after liver towards the right shoulder. A 2nd grasper was then used to hold the gallbladder at the infundibulum. I then proceeded to dissect down on infundibular gallbladder stripping down the visceroperitoneum until I identified the cystic duct. The cystic duct was dissected out circumferentially. The cystic artery was then identified and dissected out circumferentially as well. Posterior wall the gallbladder at the infundibulum was dissected free of the liver into the critical view was obtained. I then placed 2 clips proximal cystic duct and 2 clips distally high on the infundibular gallbladder. The cystic duct was then divided with Endo Tiny. In a similar fashion cystic artery clipped and divided as well. The gallbladder was then resected off the liver utilize electrocautery without spilling any bile. It was then placed into an Endo-Catch bag and brought out through the epigastric port site. I palpated the gallbladder and there were no stones within the gallbladder. It was then sent to pathology for examination. I then irrigated out the right upper quadrant the abdomen the gallbladder fossa with copious amounts of sterile saline solution. Hemostasis was excellent. There was no evidence of bile leak. I then aspirated the fluid from the right upper quadrant the abdomen from the pelvis. I then removed the trocar ports under direct visualization all port sites appeared hemostatic. I then allowed the abdomen decompressed. The 10mm epigastric trocar port fascial defect was then closed utilizing 0 Vicryl suture placed in a figure-eight fashion. The skin edges on the port sites were then approximated utilizing a running subcuticular 4-0 Monocryl suture. The incisions were then cleaned the skin glue was applied. The patient tolerated the procedure well no complications. All sponges, needles, and instrument counts were correct at the end procedure. EBL was _10__cc. The patient was awakened and taken to recovery in stable and satisfactory condition. Implants None Estimated Blood Loss 10 Drains No Packing No Pathology Yes ( gallbladder to pathology) Complications No immediate complications Condition Stable Disposition PACU [facility] Billing Surgery - Charge Forward: Surgery Billing
[2023-04-05] MEDS: fentaNYL CITRATE INJ (*CRX) 100 MCG/2 ML VIAL 25 MCG IV PUSH ×2 (15:01→15:07)
[2023-04-05] MEDS: oxyCODONE HCL (*CRX) 5 MG TAB IR PO (15:49)
[2023-04-05] MEDS: ONDANSETRON INJ 4 MG/2 ML VIAL IV PUSH (16:17)
== END 2023-04-05 17:00 | disposition home or self-care (01) ==
PROVIDERS: PCP Family Medicine; Visit Provider Surgery
PROC: 0FT44ZZ Resection of Gallbladder, Percutaneous Endoscopic Approach (ICD-10-PCS; CPT 47562; principal; 2023-04-05 13:30)
DX: K81.1 Chronic cholecystitis (principal); I10 Essential (primary) hypertension; E03.9 Hypothyroidism, unspecified; G47.33 Obstructive sleep apnea (adult) (pediatric); M81.0 Age-related osteoporosis without current pathological fracture; H40.9 Unspecified glaucoma; E66.9 Obesity, unspecified; Z68.35 Body mass index [BMI] 35.0-35.9, adult; Z79.84 Long term (current) use of oral hypoglycemic drugs; Z79.51 Long term (current) use of inhaled steroids; Z79.891 Long term (current) use of opiate analgesic
CPT/HCPCS: 47562; 36415; 82948; 84295; 88304; A9270; C1713; J0330; J0690; J1100; J1170; J1885; J2250; J2370; J2405; J2704; J2710; J3010; J7120

== ENCOUNTER → 2023-05-16 10:13 | Outpatient (CLI) | payer BC, SELFPAY ==
--- NOTE | ~2023-05-16 | CT_ITS ---
CT of the Abdomen and Pelvis: Indication: Abdominal pain Technique: 2.5 mm axial scans were obtained through the abdomen and pelvis following intravenous adm inistration of 100 cc of Omnipaque 350. Dose reduction technique was used on this scan by utilizing a utomated exposure control and iterative reconstruction technique. The dose-length product (DLP) was 1 084.08 mGy-cm. COMPARISON: 03/10/2023 Findings: Scans through the lung bases are unremarkable. The liver, spleen, pancreas, adrenals and kidneys are within normal limits. Cholecystectomy clips are present. No evidence of aortic aneurysm. No lymphadenopathy. No bowel obstruction or bowel wall thickening. There is no evidence to suggest acute appendicitis. Th ere is sigmoid diverticulosis. Images through the pelvis were performed. Urinary bladder unremarkable. No adnexal mass evident. No a scites. Impression: No acute abnormalities seen. Reviewed, dictated and finalized at [facility]. Impression: No acute abnormalities seen.
[2023-05-16 10:34] LABS: Estimated Glomerular Filt Rate > 60
== END ==
PROVIDERS: PCP Family Medicine; Visit Provider Nurse Practitioner Family
DX: R10.32 Left lower quadrant pain (principal); Z87.19 Personal history of other diseases of the digestive system
CPT/HCPCS: 74177; Q9967

== ENCOUNTER 2023-05-16 10:47 | Outpatient (CLI) | payer BC, SELFPAY ==
[2023-05-16 14:34] LABS: Hematocrit 37.2 % (37.0-47.0); Hemoglobin 12.7 g/dL (12.0-15.0); Mean Corpuscular HGB Conc 34.1 g/dl (32-36); Mean Corpuscular Hemoglobin 30.3 pg (26-34); Mean Corpuscular Volume 88.8 fl (80-100); Mean Platelet Volume 9.5 fl (7.4-10.4); Platelet Count Result 304 k/mm3 (150-375); Red Blood Count 4.19 M/mm3 (4.2-5.4); Red Cell Distribution Width 12.4 % (11.5-14.5); White Blood Count 3.8 K/mm3 (4.5-10.0)
[2023-05-16 14:47] LABS: Alanine Aminotransferase 35 U/L (6-35); Albumin Level 4.2 g/dL (3.5-5.1); Alkaline Phosphatase 80 U/L (38-126); Anion Gap 6 mmol/L (8-16); Aspartate Amino Transferase 33 U/L (14-36); Bilirubin,Total 0.4 mg/dL (0.2-1.3); Blood Urea Nitrogen 8 mg/dL (7-17); CRP < 0.5 mg/dL (<1.0); Calcium 9.2 mg/dL (8.4-10.2); Carbon Dioxide 31 mmol/L (22-30); Chloride 90 mmol/L (98-107); Estimated Glomerular Filt Rate > 60; Glucose 101 mg/dL (65-110); Potassium 3.3 mmol/L (3.4-5.0); Sodium 127 mmol/L (137-145)
== END 2023-05-16 10:48 | disposition home or self-care (01) ==
LOC: ANHGOSHLAB 10:48
PROVIDERS: PCP Family Medicine; Visit Provider Nurse Practitioner Family
DX: R10.32 Left lower quadrant pain (principal)
CPT/HCPCS: 36415; 80053; 85027; 86140

== ENCOUNTER 2023-05-20 13:52 | Outpatient (CLI) | payer BC, SELFPAY ==
[2023-05-20 14:32] LABS: Alanine Aminotransferase 35 U/L (6-35); Albumin Level 4.7 g/dL (3.5-5.1); Alkaline Phosphatase 85 U/L (38-126); Anion Gap 7 mmol/L (8-16); Aspartate Amino Transferase 33 U/L (14-36); Bilirubin,Total 0.5 mg/dL (0.2-1.3); Blood Urea Nitrogen 12 mg/dL (7-17); Calcium 10.3 mg/dL (8.4-10.2); Carbon Dioxide 33 mmol/L (22-30); Chloride 89 mmol/L (98-107); Estimated Glomerular Filt Rate > 60; Glucose 96 mg/dL (65-110); Potassium 4.4 mmol/L (3.4-5.0); Sodium 129 mmol/L (137-145)
== END 2023-05-20 13:53 | disposition home or self-care (01) ==
PROVIDERS: PCP Family Medicine; Visit Provider Nurse Practitioner Family
DX: E87.1 Hypo-osmolality and hyponatremia (principal)
CPT/HCPCS: 36415; 80053

== ENCOUNTER 2023-06-06 15:35 | Outpatient (CLI) | payer BC, SELFPAY ==
--- NOTE | ~2023-06-06 | US_ITS ---
EXAMINATION: US axilla LT DATE: 06/06/2023 15:59 INDICATION: Palpable lump at the left axilla TECHNIQUE: Multiple grayscale and Doppler ultrasound images of the region of concern at the left axil la were obtained. COMPARISON: CT dated 03/10/2023 FINDINGS: 4 x 3 x 3 mm echogenic nodule with central hypoechoic lesion located 3 mm deep to the skin surface at the region of concern. This corresponds in size and location to one of several small relatively symm etric appearing bilateral axillary lymph nodes seen on the prior CT. No other abnormal masses or flui d collections identified. IMPRESSION: 1. 4 x 3 x 3 mm superficial subcutaneous nodule in the left axilla likely representing a normal lymph node. Reviewed, dictated and finalized at location A. IMPRESSION: 1. 4 x 3 x 3 mm superficial subcutaneous nodule in the left axilla likely repre senting a normal lymph node.
[2023-06-06 17:32] LABS: Basophils Percent Auto 0.7 % (0.2-1.2); Eosinophils Absolute Auto 0.1 K/mm3 (0-0.3); Hematocrit 39.9 % (37.0-47.0); Hemoglobin 13.8 g/dL (12.0-15.0); Immature Granulocyte Absolute 0.01 K/mm3 (0.00-0.031); Immature Granulocyte Percent A 0.2 % (0-0.5); Lymphocytes Percent Auto 28.5 % (18.3-44.2); Mean Corpuscular HGB Conc 34.6 g/dl (32-36); Mean Corpuscular Hemoglobin 30.5 pg (26-34); Mean Corpuscular Volume 88.3 fl (80-100); Monocytes Absolute Auto 0.7 K/mm3 (0.1-0.6); Monocytes Percent Auto 11.1 % (2.6-8.5); Neutrophils Absolute Auto 3.4 K/mm3 (1.3-6.7); Neutrophils Percent Auto 57.5 % (45.5-73.1); Platelet Count Result 327 k/mm3 (150-375); Red Blood Count 4.52 M/mm3 (4.2-5.4); Red Cell Distribution Width 12.7 % (11.5-14.5)
[2023-06-06 17:43] LABS: Alanine Aminotransferase 38 U/L (6-35); Albumin Level 4.7 g/dL (3.5-5.1); Alkaline Phosphatase 108 U/L (38-126); Anion Gap 9 mmol/L (8-16); Aspartate Amino Transferase 33 U/L (14-36); Bilirubin,Total 0.3 mg/dL (0.2-1.3); Blood Urea Nitrogen 15 mg/dL (7-17); Carbon Dioxide 27 mmol/L (22-30); Chloride 92 mmol/L (98-107); Cholesterol 245 mg/dL (0-200); Estimated Glomerular Filt Rate > 60; Glucose 94 mg/dL (65-110); HDL Direct 59 mg/dL; Potassium 3.8 mmol/L (3.4-5.0); Sodium 128 mmol/L (137-145); Triglycerides 170 mg/dL (<150)
[2023-06-06 17:55] LABS: LDL Cholesterol Direct 134 mg/dL
[2023-06-06 19:36] LABS: Hemoglobin A1C 5.7 % (<5.7)
== END 2023-06-06 15:36 | disposition home or self-care (01) ==
LOC: ANHIMG 15:36
PROVIDERS: PCP Nurse Practitioner Adult Health; Visit Provider Nurse Practitioner Adult Health
DX: R22.32 Localized swelling, mass and lump, left upper limb (principal); E87.1 Hypo-osmolality and hyponatremia; R73.03 Prediabetes; E03.9 Hypothyroidism, unspecified; D72.819 Decreased white blood cell count, unspecified; E66.9 Obesity, unspecified; R74.8 Abnormal levels of other serum enzymes
CPT/HCPCS: 36415; 76882; 80048; 80061; 80076; 83036; 84443; 85025

== ENCOUNTER 2023-08-29 15:05 | Outpatient (CLI) | payer BC, SELFPAY ==
[2023-08-29 19:43] LABS: Sodium 128 mmol/L (137-145)
== END 2023-08-29 15:06 | disposition home or self-care (01) ==
LOC: ANHBWCLAB 15:07
PROVIDERS: PCP Nurse Practitioner Adult Health; Visit Provider Nurse Practitioner Adult Health
DX: E87.1 Hypo-osmolality and hyponatremia (principal)
CPT/HCPCS: 36415; 84295

== ENCOUNTER 2023-10-31 13:48 | Outpatient (CLI) | payer BC, SELFPAY ==
[2023-10-31 14:27] LABS: Hemoglobin A1C 5.8 % (<5.7)
== END 2023-10-31 13:49 | disposition home or self-care (01) ==
LOC: ANHLAB 13:49
PROVIDERS: PCP Nurse Practitioner Adult Health; Visit Provider Nurse Practitioner Adult Health
DX: R73.9 Hyperglycemia, unspecified (principal)
CPT/HCPCS: 36415; 83036

== ENCOUNTER 2023-11-12 21:23 | Emergency (ER) | payer BC, SELFPAY ==
--- NOTE | ~2023-11-12 | CT_ITS ---
EXAMINATION: CT abdomen pelvis w con DATE: 11/12/2023 23:29 INDICATION: abdominal pain TECHNIQUE: Computed tomography (CT) of the abdomen and pelvis was performed with 100 mL Omnipaque-350 intravenous contrast. Automated exposure control and iterative reconstruction technique were employe d. The dose-length product was 948.31 mGy-cm. COMPARISON: 05/16/2023. FINDINGS: Lower thorax: Unremarkable Liver: Normal. Biliary/Gallbladder: Gallbladder is absent. No bile duct dilation. Pancreas: Mild atrophy. Spleen: Normal. Adrenals:No mass. Kidneys: No suspicious mass, obstructing stone, or hydronephrosis. GI tract: Mild distal esophageal and gastric wall edema. No small or large bowel dilation. Normal lupe endix. Diverticulosis without diverticulitis. Mesentery/Peritoneum: No ascites, mass, or free air. Retroperitoneum: No mass. Pelvis: Pelvic organs are within normal limits. Soft Tissues: Soft tissues and body wall unremarkable. Bones: No acute osseous finding. IMPRESSION: Mild esophagitis/gastritis. Otherwise, no acute abdominopelvic process detected. Reviewed, dictated and finalized at location K. [employer]
[2023-11-12 21:32] VITALS: BP 148/100; PULSE 105; RESP 18; TEMP 36; O2SAT 99
[2023-11-12] MEDS: SODIUM CHLORIDE 0.9% IV 1,000 ML 999 ML IV CONT (22:49)
[2023-11-12] MEDS: ONDANSETRON INJ 4 MG/2 ML VIAL IV PUSH (22:49)
[2023-11-12 22:55] LABS: Basophils Absolute Auto 0.1 K/mm3 (0.0-0.1); Basophils Percent Auto 0.6 % (0.2-1.2); Eosinophils Absolute Auto 0.1 K/mm3 (0-0.3); Eosinophils Percent Auto 1.5 % (0-4.4); Hematocrit 38.9 % (37.0-47.0); Hemoglobin 13.3 g/dL (12.0-15.0); Immature Granulocyte Absolute 0.03 K/mm3 (0.00-0.031); Immature Granulocyte Percent A 0.4 % (0-0.5); Lymphocytes Absolute Auto 2.49 K/mm3 (0.9-3.2); Lymphocytes Percent Auto 30.4 % (18.3-44.2); Mean Corpuscular HGB Conc 34.2 g/dl (32-36); Mean Corpuscular Hemoglobin 30.2 pg (26-34); Mean Corpuscular Volume 88.4 fl (80-100); Mean Platelet Volume 9.1 fl (7.4-10.4); Monocytes Absolute Auto 0.8 K/mm3 (0.1-0.6); Monocytes Percent Auto 9.9 % (2.6-8.5); Neutrophils Absolute Auto 4.7 K/mm3 (1.3-6.7); Neutrophils Percent Auto 57.2 % (45.5-73.1); Platelet Count Result 323 k/mm3 (150-375); Red Cell Distribution Width 12.1 % (11.5-14.5); White Blood Count 8.2 K/mm3 (4.5-10.0)
[2023-11-12 23:11] LABS: Lactic Acid Reflex 1.3 mmol/L (0.7-2.0)
[2023-11-12 23:12] LABS: Alanine Aminotransferase 25 U/L (6-35); Albumin Level 4.2 g/dL (3.5-5.1); Alkaline Phosphatase 93 U/L (38-126); Anion Gap 9 mmol/L (8-16); Aspartate Amino Transferase 27 U/L (14-36); Bilirubin,Total 0.5 mg/dL (0.2-1.3); Blood Urea Nitrogen 18 mg/dL (7-17); Calcium 9.3 mg/dL (8.4-10.2); Carbon Dioxide 25 mmol/L (22-30); Chloride 90 mmol/L (98-107); Estimated CRCL calculation 86 ml/min; Estimated Glomerular Filt Rate > 60; Glucose 103 mg/dL (65-110); Lipase 71 U/L (23-300); Potassium 3.5 mmol/L (3.4-5.0); Sodium 124 mmol/L (137-145)
[2023-11-13 00:01] VITALS: BP 140/97; PULSE 89; RESP 16; O2SAT 95
[2023-11-13 00:12] LABS: Appearance Urine Clear (Clear); Bilirubin Urine Negative (Negative); Blood Urine Negative (Negative); Color Urine Yellow (Yellow); Glucose Urine UA Negative (Negative); Ketones Urine Negative (Negative); Leukocyte Esterase Ur Negative LEU/UL (Negative); Nitrate Urine Negative (Negative); Protein Urine Negative (Negative); Urobilinogen Urine 0.2 mg/dL (<2.0); pH Urine 7.5 (5.0-9.0)
[2023-11-13 00:27] LABS: Add Urine Microscopic? NO
--- NOTE | 2023-11-13 00:31 | ED.GENADULT ---
HPI - General Adult General Chief complaint: Unspecified Stated complaint: constipation, possible rectal prolaspse Time Seen by Provider: 11/12/23 22:11 History of Present Illness HPI narrative: Patient is a 62-year-old female who presents emergency department with chief complaint of constipation for 4 days. Patient reports that she has been on antibiotic for a sinus infection and reports that now she feels though she needs to have a bowel movement but has not been able to move her bowels. The patient reports that whenever she tried to strain to go to the bathroom she felt as though something was bulging from her rectum and was concerned that she may have had a rectal prolapse. Related Data Home Medications Medication Instructions Recorded Confirmed gabapentin 300 mg capsule 300 mg PO TID 08/09/22 11/07/23 lansoprazole 30 mg capsule,delayed 30 mg PO DAILY 08/09/22 11/07/23 release (Prevacid) metformin 1,000 mg tablet 1,000 mg PO DAILY 08/09/22 11/07/23 timolol 0.5 % eye drops 1 drp EACH EYE Q12H 08/09/22 11/07/23 latanoprost 0.005 % eye drops, 1 drp EACH EYE QPM 10/18/22 11/07/23 emulsion ondansetron 4 mg disintegrating 4 mg PO Q6H PRN Nausea And Vomiting 03/28/23 11/07/23 tablet Allergies Allergy/AdvReac Type Severity Reaction Status Date / Time azithromycin AdvReac Severe dizzy Verified 11/12/23 22:50 statin AdvReac Severe pain Uncoded 11/07/23 14:11 Review of Systems Review of Systems: A 10 system review of systems was completed on the patient and is negative except for what is stated in the HPI. Nursing and ancillary documentation was reviewed. [facility] Past Medical History Medical History Abdominal pain Acute cholecystitis Arthritis Asthma Diarrhea Glaucoma Hypertension Hypothyroidism Left lower quadrant abdominal pain YAJAIRA (obstructive sleep apnea) Osteoporosis Surgical History Surgical History History of surgery on arm Left and Right for tendonitis History of toe surgery Right foot Hx laparoscopic cholecystectomy 04/05/23 Family History Family History Father Diabetes mellitus Hypertension Heart disease Mother Hypertension Disorder of thyroid Sibling Alcohol abuse Asthma Diabetes mellitus Depression Social History Social History Smoking status: Never smoker Alcohol intake: never Substance use: never Substance use type: does not use Lack of Transportation: No Lack of Food: Never True Current Housing: I Have Housing Concerned About Future Housing: No Difficulty Paying Gas/Electric Bills: No Difficulty Paying for Meds: No Currently Unemployed: No Education: High School Diploma/GED Difficulty w/ Childcare or Family Care: No Living arrangements: with family Occupation/Education: occupation Additional occupation/education comments: [employer] Gender identity (if verbalized by the patient): Female Spiritual care concerns: No Agree to blood products: Yes Exam Narrative: GENERAL: Well-appearing, well-nourished, and in no acute distress. HEAD: Normocephalic, atraumatic. EYES: PERRLA and EOMI. ENT: Nares clear, no rhinorrhea or epistaxis. Mucous membranes moist. NECK: Supple. CHEST: Clear to auscultation. No respiratory distress. HEART: Regular rate and rhythm. No murmur heard. Normal peripheral pulses. ABDOMEN: Soft, nontender, nondistended, normal active bowel sounds. : Guaiac-negative stool in the vault no large fecal impaction EXTREMITIES: Normal range of motion. No edema. SKIN: Warm, dry, no rash. NEURO: No focal deficits. Alert and oriented x3. PSYCH: Normal mood and affect. Course Vital Signs Vital signs: Vital Signs Temperature 36.0 C L 01
[2023-11-13] MEDS: MAGNESIUM CITRATE 300 ML BTL PO (00:54)
[2023-11-13 00:55] VITALS: BP 139/88; PULSE 87; RESP 17; O2SAT 100
== END 2023-11-13 00:57 | disposition home or self-care (01) ==
PROVIDERS: Emergency Provider Emergency Medicine; PCP Nurse Practitioner Adult Health
DX: E87.1 Hypo-osmolality and hyponatremia (principal); R10.9 Unspecified abdominal pain; M19.90 Unspecified osteoarthritis, unspecified site; J45.909 Unspecified asthma, uncomplicated; I10 Essential (primary) hypertension; E03.9 Hypothyroidism, unspecified; G47.30 Sleep apnea, unspecified
CPT/HCPCS: 36415; 74177; 80053; 81003; 83605; 83690; 85025; 96361; 96374; 99284; A9270; J2405; J7030; Q9967

== ENCOUNTER 2023-11-13 16:46 | Emergency (ER) | payer BC, SELFPAY ==
--- NOTE | 2023-11-13 16:58 | PC.NURSE ---
pt up to desk stating she is going to leave and return in the am. does not want to sit in lobby with sick people
== END 2023-11-13 16:58 | disposition left against medical advice (07) ==
PROVIDERS: PCP Nurse Practitioner Adult Health
DX: Z53.21 Procedure and treatment not carried out due to patient leaving prior to being seen by health care provider (principal)
CPT/HCPCS: 99199

== ENCOUNTER 2023-11-19 14:12 | Outpatient (CLI) | payer BC, SELFPAY ==
[2023-11-19 19:42] LABS: Hematocrit 40.9 % (37.0-47.0); Hemoglobin 13.3 g/dL (12.0-15.0); Mean Corpuscular HGB Conc 32.5 g/dl (32-36); Mean Corpuscular Hemoglobin 30.2 pg (26-34); Platelet Count Result 330 k/mm3 (150-375); Red Cell Distribution Width 12.5 % (11.5-14.5); White Blood Count 5.6 K/mm3 (4.5-10.0)
[2023-11-19 19:48] LABS: Anion Gap 6 mmol/L (8-16); Blood Urea Nitrogen 12 mg/dL (7-17); Calcium 9.5 mg/dL (8.4-10.2); Carbon Dioxide 29 mmol/L (22-30); Chloride 95 mmol/L (98-107); Estimated Glomerular Filt Rate > 60; Glucose 93 mg/dL (65-110); Magnesium 2.2 mg/dL (1.6-2.3); Potassium 4.5 mmol/L (3.4-5.0); Sodium 130 mmol/L (137-145)
== END 2023-11-19 14:13 | disposition home or self-care (01) ==
LOC: ANHBWCLAB 14:13
PROVIDERS: PCP Nurse Practitioner Adult Health; Visit Provider Nurse Practitioner Adult Health
DX: R42 Dizziness and giddiness (principal); E87.1 Hypo-osmolality and hyponatremia
CPT/HCPCS: 36415; 80048; 83735; 84443; 85027

== ENCOUNTER 2023-12-04 14:30 | Outpatient (CLI) | payer BC, SELFPAY ==
[2023-12-04 19:38] LABS: Appearance Urine Clear (Clear); Bilirubin Urine Negative (Negative); Blood Urine Negative (Negative); Color Urine Yellow (Yellow); Glucose Urine UA Negative (Negative); Ketones Urine Negative (Negative); Leukocyte Esterase Ur Negative LEU/UL (NEGATIVE); Nitrate Urine Negative (Negative); Protein Urine Negative (Negative); Specific Grav Ur 1.011 (1.001-1.035); Urobilinogen Urine 0.2 mg/dL (<2.0)
[2023-12-04 19:41] LABS: Add Urine Microscopic? NO
[2023-12-04 20:08] LABS: Anion Gap 6 mmol/L (8-16); Blood Urea Nitrogen 13 mg/dL (7-17); Carbon Dioxide 30 mmol/L (22-30); Chloride 99 mmol/L (98-107); Estimated Glomerular Filt Rate > 60; Glucose 102 mg/dL (65-110); Potassium 3.8 mmol/L (3.4-5.0); Sodium 135 mmol/L (137-145)
== END 2023-12-04 14:31 | disposition home or self-care (01) ==
PROVIDERS: PCP Nurse Practitioner Adult Health; Visit Provider Nurse Practitioner Adult Health
DX: R42 Dizziness and giddiness (principal); E87.1 Hypo-osmolality and hyponatremia
CPT/HCPCS: 36415; 80048; 81003

== ENCOUNTER 2024-01-28 13:14 | Outpatient (CLI) | payer BC, SELFPAY | END 2024-01-28 13:15 | disposition home or self-care (01) | LOC: ANHAUDIO 13:14 | PROVIDERS: PCP Nurse Practitioner Adult Health; Visit Provider Otolaryngology | DX: H93.13 Tinnitus, bilateral (principal); H90.3 Sensorineural hearing loss, bilateral | CPT/HCPCS: 92557; 92567 ==

== ENCOUNTER 2024-02-04 14:48 | Outpatient (CLI) | payer BC, SELFPAY ==
--- NOTE | ~2024-02-04 | DEXA_ITS ---
Bone Density Report Name: GIOVANNA HENLEY Age: 63 Sex: Female Ethnicity: White Date of : 1960 Indication: postmenopausal; screening for osteoporosis; parental hip fracture; height loss; history of glucocorticoids; asthma or emphysema; Referring Provider: EDY, TAMARA Study: Bone densitometry was performed. Exam Date: February 04, 2024 Accession number: [id number] Bone Density: Region BMD T-score Z-score Classification AP Spine(L1-L4) 0.849 -1.8 -0.2 Osteopenia Femoral Neck (Left) 0.621 -2.1 -0.6 Osteopenia Total Hip (Left) 0.908 -0.3 0.8 Normal Femoral Neck (Right) 0.626 -2.0 -0.6 Osteopenia Total Hip (Right) 0.830 -0.9 0.2 Normal Total Hip Mean 0.869 -0.6 0.5 Normal World Health Organization criteria for BMD impression classify patients as: Normal (T-score at or above -1.0), Osteopenia (T-score between -1.0 and -2.5), or Osteoporosis (T-score at or below -2.5). 10-year Fracture Risk(1): Major Osteoporotic Fracture 28% Hip Fracture 2.5% Reported Risk Factors: [place] (), Neck BMD=0.621, BMI=33.9, parental fracture, glucocorticoids (1) FRAX(R) Version 3.08. Fracture probability calculated for an untreated patient. Fracture probability may be lower if the patient has received treatment. Clinical Information Provided by Patient: Parent has had a hip fracture Has taken Glucocorticoids Has used the following medications: Vitamin D Has the following medical conditions: Asthma or Emphysema Patient maximum height was 64 No regular weight bearing exercise Drinks caffeinated beverages Onset of menses at age 11 Number of children 0 Impression: The patient has low bone mass, based on the Left Femoral Neck T-score. The patient has an estimated ten-year risk of hip fracture of 2.5% and an estimated ten-year risk of major fracture of 28%, based on the WHO FRAX algorithm. The patient has risk factors, including: parental hip fracture, history of glucocorticoid therapy. Discussion: BONE DENSITY IS LOW AT ONE OR MORE SKELETAL SITES. THE PATIENT'S BMD AND CLINICAL RISK FACTORS CONTRIBUTE TO THIS PATIENT'S INCREASED RISK OF FRACTURE. This patient's lowest T-score is low at one or more skeletal sites. It meets the World Health Organization's (WHO) criteria for ?low bone mass? (T-score between -1.0 and -2.5). The patient's 10-year risk of a major osteoporotic fracture as calculated by FRAX exceeds the threshold where pharmacological therapy is recommended by the National Osteoporosis Foundation (NOF). However, all treatment decisions require clinical judgment and consideration of individual patient factors, including patient preferences, comorbidities, previous drug use, risk factors not captured in the FRAX model (e.g., frailty, falls, vitamin D deficiency, increased bone turnover
== END 2024-02-04 14:49 | disposition home or self-care (01) ==
PROVIDERS: PCP Nurse Practitioner Adult Health; Visit Provider Nurse Practitioner Adult Health
DX: Z78.0 Asymptomatic menopausal state (principal)
CPT/HCPCS: 77080

== ENCOUNTER 2024-02-27 14:42 | Outpatient (CLI) | payer BC, SELFPAY ==
[2024-02-27 22:06] LABS: Anion Gap 7 mmol/L (4-12); Blood Urea Nitrogen 14 mg/dL (7-17); Calcium 10.4 mg/dL (8.4-10.2); Carbon Dioxide 28 mmol/L (22-30); Chloride 98 mmol/L (98-107); Estimated Glomerular Filt Rate > 60; Glucose 101 mg/dL (65-110); Potassium 4.1 mmol/L (3.4-5.0); Sodium 133 mmol/L (137-145)
== END 2024-02-27 14:43 | disposition home or self-care (01) ==
LOC: ANHBWCLAB 14:44
PROVIDERS: PCP Nurse Practitioner Adult Health; Visit Provider Nurse Practitioner Adult Health
DX: E87.1 Hypo-osmolality and hyponatremia (principal)
CPT/HCPCS: 36415; 80048

== ENCOUNTER 2024-03-12 08:36 | Outpatient (CLI) | payer BC, SELFPAY ==
--- NOTE | 2024-03-24 17:59 | WPDSLEEPSTUD ---
Sleep Study Date of Study: 03/12/24 Ordering Provider: Eleuterio Erazo APRN Interpreting Physician: Jill Pena DO Sleep Study Type: Split Polysomnogram Height: 1.6 m Weight: 86.183 kg Body Mass Index: 33.6 Neck Circumference (inches): 16 [place]: 9 Reason for Sleep Study Previously diagnosed YAJAIRA in 2021. Daytime hypersomnia Sleep History The patient is a 63-year-old female with hypertension, hypothyroidism, cough variant asthma, glaucoma, osteoporosis, spastic dysphonia and previously diagnosed sleep apnea that had a sleep study ordered by the Pulmonary group to re-qualify for sleep apnea treatment. The patient rarely awakens from sleep short of breath. She occasionally awakens at night from coughing. She frequently snores and it is frequently loud enough that others complain. She frequently has trouble sleeping when she has a cold. She denies waking up gasping for air throughout the night. She occasionally sweats excessively at night. She frequently has heart palpitations or irregular heartbeats during the night. She occasionally falls asleep during the day but never while driving. She denies sleep paralysis, cataplexy and hypnagogic / hypnopompic hallucinations. She denies having trouble at school or work due to sleepiness. She occasionally feels afraid of going to sleep. She rarely has nightmares. She occasionally remembers her dreams. She constantly has thoughts racing through her mind. She occasionally feels sad or depressed. She constantly has anxiety. She occasionally has muscular tension. She occasionally notices parts of her body jerk. She denies kicking during the night. She occasionally has crawling and aching feelings in her legs and frequently has leg pain during the night. She frequently grinds her teeth during sleep and occasionally awakens with morning jaw pain. She is constantly bothered by pain during the day and occasionally awakened by pain during the night. She constantly wakes up feeling stiff in the morning. She frequently wakes up with sore or achy muscles. She constantly wakes up with pain in the neck, spine in other joints. She goes to bed between 11:30 p.m. to 12:00 a.m. on both weekdays and weekends. It can take her several hours to fall asleep. She wakes up 3-6 times throughout the night to urinate and is able fall back asleep within a few minutes. She wakes up at 9:00 a.m. on both weekdays and weekends. She typically gets 4-6 hours of sleep per night. She will stay in bed for 30 minutes after waking up in the morning. She currently lives . She denies consuming any caffeinated beverages within 2 hours of bedtime. She denies engaging in physical exercise before bedtime. She will watch television before falling asleep. She will take naps in the afternoon or the evening and they are refreshing. She consumes 12 oz of a caffeinated beverage per day. She denies tobacco, alcohol and recreational drug use. [facility] Past Medical History Medical History Abdominal pain Acute cholecystitis Arthritis Asthma Diarrhea Glaucoma Hypertension Hypothyroidism Left lower quadrant abdominal pain YAJAIRA (obstructive sleep apnea) Osteoporosis Surgical History Surgical History History of surgery on arm Left and Right for tendonitis History of toe surgery Right foot Hx laparoscopic cholecystectomy 04/05/23 Family History Family History Father Diabetes mellitus Hypertension Heart disease Cancer Mother Hypertension Thyroid disorder Sibling Alcohol abuse Asthma Diabetes mellitus Depression Social History Social History Smoking status: Never smoker Second hand tobacco smoke exposure: No Alcohol intake: never Substance use: never Sub
[2024-03-24 18:12] VITALS: BMI 33.6
== END 2024-03-13 07:34 | disposition home or self-care (01) ==
LOC: ANHCSM 08:36
PROVIDERS: PCP Nurse Practitioner Adult Health; Visit Provider Nurse Practitioner Family
DX: G47.33 Obstructive sleep apnea (adult) (pediatric) (principal); G47.10 Hypersomnia, unspecified; I10 Essential (primary) hypertension
CPT/HCPCS: 95811

== ENCOUNTER 2024-03-23 12:33 | Outpatient (CLI) | payer BC, SELFPAY ==
--- NOTE | ~2024-03-23 | US_ITS ---
EXAMINATION: US carotid duplex BI DATE: 03/23/2024 13:05 INDICATION: Bilateral tinnitus TECHNIQUE: Grayscale, color Doppler, and pulsed Doppler images of the cervical carotid arteries were obtained. The degree of vessel stenosis is placed in one of the following categories: normal, <50%, 5 0-69%, >=70% but less than near-occlusion, near-occlusion, or total occlusion. Note that percent sten osis relative to normal distal artery lumen diameter is indirectly measured from velocity measurement s as described by Chapo, et al. Radiology 2003; 229:340-346. COMPARISON: None. FINDINGS: RIGHT: The right common carotid artery (CCA) peak systolic velocity (PSV) is 52 cm/s. The right internal car otid artery (ICA) PSV is 49 cm/s. The right ICA end-diastolic velocity (EDV) is 22 cm/s. The right IC A/CCA PSV ratio is 1.0. Grayscale and color Doppler images yield an estimate of <50% diameter reducti on from plaque in the ICA. The external carotid artery (ECA) PSV is 56 cm/s. There is antegrade flow in the right vertebral artery. LEFT: The left CCA PSV is 42 cm/s. The left ICA PSV is 46 cm/s. The left ICA EDV is 22 cm/s. The left ICA/C CA PSV ratio is 1.1. Grayscale and color Doppler images yield an estimate of <50% diameter reduction from plaque in the ICA. The ECA PSV is 52 cm/s. There is antegrade flow in the left vertebral artery. IMPRESSION: 1. <50% stenosis from minimal plaque in the right internal carotid artery. 2. <50% stenosis from minimal plaque in the left internal carotid artery. Reviewed, dictated and finalized at location [facility].
== END 2024-03-23 12:34 | disposition home or self-care (01) ==
LOC: ANHIMG 12:34
PROVIDERS: PCP Nurse Practitioner Adult Health; Visit Provider Nurse Practitioner Adult Health
DX: H93.13 Tinnitus, bilateral (principal); I65.23 Occlusion and stenosis of bilateral carotid arteries
CPT/HCPCS: 93880

== ENCOUNTER 2025-05-10 10:12 | Emergency (ER) | payer BC, SELFPAY ==
[2025-05-10] VITALS (12 sets, daily range): BP systolic 111–144; BP diastolic 84–97; PULSE 71–86; RESP 12–16; TEMP 36.2; O2SAT 95–100
--- NOTE | ~2025-05-10 | CT_ITS ---
EXAMINATION: CTA chest PE protocol DATE: 05/10/2025 14:16 CDT INDICATION: Elevated d-dimer TECHNIQUE: Computed tomographic angiography (CTA) of the chest was performed with 100 mL Omnipaque-35 0 intravenous contrast. The dose-length product was 447.20 mGy-cm. Maximum intensity projection 3D-re constructions of the aorta and other arteries were constructed by the technologist on a separate work station. COMPARISON: 03/10/2023 (the lateral no due to FINDINGS/OBSERVATIONS: PULMONARY ARTERIES: No filling defect is identified within the main or proximal pulmonary artery. The main pulmonary artery is not enlarged. THORACIC AORTA: Redemonstration of aneurysmal dilatation of the ascending thoracic aorta measuring 44.5 mm in anterio r to posterior dimension on today's study compared with 43.5 mm in 2022, measuring in the same plane. No dissection is present. The great vessels are intact LUNGS: Trace left basilar atelectasis. The remainder of the lungs are clear. MEDIASTINUM: No morphologically suspicious or pathologically enlarged lymph nodes are identified with in the mediastinum or bilateral axilla. BONES OF THE CHEST: No acute fracture. No significant degenerative disease. No lytic or blastic lesions. HEART: The heart is within the upper limits of normal for size, without pericardial effusion. IMPRESSION: No pulmonary embolus. No thoracic aortic dissection. Redemonstration of aneurysmal dilatation of the ascending thoracic aorta, largely unchanged in size f rom 2022. Reviewed, dictated and finalized at location A. IMPRESSION: No pulmonary embolus. No thoracic aortic dissection. Redemonstration of aneurysmal dilatation of the ascending thoracic aorta, large ly unchanged in size from 2022.
--- NOTE | ~2025-05-10 | XR_ITS ---
EXAM/PROCEDURE: XR chest 2V - 05/10/2025 12:20 CDT HISTORY: 64 years old Female with cp, sob TECHNIQUE: Two view(s) of the chest. COMPARISON: None available. FINDINGS: LUNGS/ PLEURA: No focal consolidation. No appreciable pneumothorax or large pleural effusion. HEART/ MEDIASTINUM: Heart appears normal in size. BONES: No acute osseous abnormality. OTHER: Right upper quadrant cholecystectomy clips. IMPRESSION: No acute process. Reviewed, dictated and finalized at location A. IMPRESSION: No acute process.
--- NOTE | 2025-05-10 10:13 | ECG_ITS ---
Test Date: 2025-05-10 10:19:01 Measurements Intervals [place] Rate: 82 P: 43 MO: 156 QRS: -9 QRSD: 83 T: 47 QT: 340 QTc: 397 Interpretive Statements SINUS RHYTHM No previous ECG available for comparison Electronically Signed On 05-10-2025 22:18:34 CDT by Diogo Maxwell M.D.
--- OUTSIDE RECORDS SUMMARY | 2025-05-10 10:22 | XMS_ITS | Encounter Summary ---
Author Organization [facility] Address [address] [place] [address] Care Team Providers Care Technology Project Manager Name Role Phone Avinash Chavez MD Primary Care Provider [phone] Encounter Details Date Type Department Care Team (Late st Contact Info) Description 10/10/2010 [facility] Outpatient Visit [facility] - Family Medicine [id number] [place] [phone] Mariusz Dhaliwal, [address] [place] [address] Social History Tobacco Use Types Packs/Day Years Used Date Smoking Tobacco: Never Alcohol Use Standard Drinks/Week Comments Yes 0 (1 standard drink = 0.6 oz pur e alcohol) Comments No Sex and Gender Information Value Date Recorded Sex Assigned at Not on file Legal Sex Female 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
--- OUTSIDE RECORDS SUMMARY | 2025-05-10 10:22 | XMS_ITS | Encounter Summary ---
Author Organization [facility] Address 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
--- OUTSIDE RECORDS SUMMARY | 2025-05-10 10:22 | XMS_ITS | Referral Summary ---
Author Organization [facility] Address [address] [place] [phone] Care Team Providers Care Manager Personal Name Role Phone Valentina Johnson NP Primary Care Provider [phone] Encounters Date Type Department Care Team Description 04/15/2025 2:09 PM CDT - 04/15/2025 11:59 PM CDT Hospital Encounter [facility] [address] [place] [address] Screening mammogram, encounter for Discharge Disposition: Discharge to home or self care from Last 3 Months Allergies Active Allergy Reactions Criticality Noted Date Comments Adhesive Rash Medium 03/30/2021 Azithromycin Dizziness Low 11/14/2009 Latex Hives Medium 11/10/2020 Simvastatin Dizziness Low 02/28/2010 Medications timolol (BETIMOL) 0.5 % ophthalmic solution Administer 1 drop into both eyes daily. Active acetaminophen-a spirin-caffeine (Excedrin Extra Strength) 250-250-65 mg per tablet take one tablet daily Active latanoprost (XALATAN) 0.005 % ophthalmic solution 1 Active losartan-hydroc hlorothiazide (HYZAAR) 100-25 mg per tablet TAKE 1 TABLET BY MOUTH EVERY DAY 90 tablet 3 2 Active blood-glucose meter misc Use daily or as directed for monitoring of diabetes. 1 each 2 Active blood glucose diagnostic (glucose blood) strip Use to check blood sugar daily 100 each 1 2 Active lancets misc Use to check blood sugar daily 100 each 1 2 Active lansoprazole (PREVACID) 30 mg capsule TAKE 1 CAPSULE BY MOUTH EVERY DAY 90 capsule 3 2 Active metFORMIN (GLUCOPHAGE) 1,000 mg tablet TAKE 1 TABLET BY MOUTH EVERY DAY WITH BREAKFAST 90 tablet 3 2 Active rizatriptan (MAXALT) 10 mg tablet TAKE 1 TABLET BY MOUTH ONCE NEEDED FOR MIGRAINE MAY REPEAT IN 2 HOURS IF UNRESOLVED. DO NOT EXCEED 30 MG IN 24 HOURS. 9 tablet 2 Active levothyroxine (SYNTHROID) 88 mcg tablet TAKE 1 TABLET BY MOUTH EVERY DAY 90 tablet 1 2 Active travoprost (TRAVATAN Z) 0.004 % drops Administer 1 drop into both eyes nightly Active gabapentin (NEURONTIN) 300 mg capsuleIndicati ons:Neuropathic Pain Take 1 capsule (300 mg total) by mouth 3 (three) times a day 90 capsule 11 3 Active Active Problems Problem Noted Date Diagnosed Date Hip pain 03/01/2022 Shoulder pain 03/01/2022 Low back pain 03/01/2022 Spondylosis of lumbar region without myelopathy or radiculopathy 03/01/2022 Class 2 severe obesity due t o excess calories with serious comorbidity and body mass index (BMI) of 35.0 to 35.9 in adult 03/30/2021 Assessment & Plan (02/26/2022 10:31 AM CDT): Not well controlled, encouraged patient to work on dietary and activity changes to help with weight loss Assessment & Plan (10/20/2021 2:38 PM ACCOUNT MANAGER RELIEF): Stable, not well controlled; patient has not had any recent weight loss activity; plans to make new year's resolution and work on weight loss in 2021 Assessment & Plan (07/26/2021 4:44 PM CDT): With stable, no significant change, eating mostly healthy, chicken, vegetables with some junk food at night Walks a lot at work Encouraged moderate intensity exercise and portion control Assessment & Plan (03/30/2021 12:54 PM CDT): Patient is known limited calorie diet, 3149-1701 calories per day Patient started to walk more, however starting to developed low back pain which may be related to leg length discrepancy Encouraged patient to continue with exercise, be evaluated by Podiatry to determine if new foot lift is required Encouraged continued dietary restriction Dyslipidemia associated with type 2 diabetes moni litus 03/30/2021 Assessment & Plan (02/22/2022 4:50 PM CDT): Stable the, not well controlled; total cholesterol remains elevated though LDL at target and Patient is not tolerate statin therapies Continue to encourage dietary and activity changes to help control blood cholesterol levels Assessment & Plan (10/20/2021 2:36 PM ACCOUNT MANAGER RELIEF): Stable, patient does not tolerate statin start Zetia 10 mg daily Assessment & Plan (07/26/2021 4:43 PM CDT): Patient reports in general she has been eating low-fat meals, though he had some junk food Has statin intolerance unable to tolerate statin therapy Will continue to monitor, if dyslipidemia persist with dietary changes, consider fenofibrate or Zetia for treatment Assessment & Plan (03/30/2021 12:57 PM CDT): Patient has general during given of cholesterol levels, with elevated total and LDL cholesterol levels Patient is not tolerate statin therapy, gets myalgias associated with statin therapy Will give patient continue dietary instructions on how to reduce cholesterol levels If no improvement then will evaluate for patient's response to injectable anti lipid medication Statin intolerance 03/30/2021 Overview (03/30/2021): Patient has severe muscle pain associated with statin use. Thoracic spondylosis with radiculopathy 12/07/19 21 Hyperostosis 12/07/2020 Myalgia 05/22/2018 Other headache syndrome 03/06/2018 Assessment & Plan (10/20/2021 2:37 PM ACCOUNT MANAGER RELIEF): Stable, continue rizatriptan 10 mg as needed for severe headaches Thoracic spine pain 03/06/2018 Thoracic disc disorder 03/06/2018 Myofasciitis 03/06/2018 Diverticulitis of large inte kelli without perforation or abscess without bleeding 01/03/2018 Assessment & Plan (01/04/2018 6:19 PM ACCOUNT MANAGER RELIEF): Continue current antibiotic therapy Encouraged to only advance diet to full as tolerated Reassured patient that bowel rest is of prime importance in order to assist with optimal healing. Hypertension associated with diabetes 01/03/2018 Assessment & Plan (02/22/2022 4:50 PM CDT): Stable, well controlled; blood pressure at target today Continue losartan -hydrochlorothiazide 100-25 mg daily Assessment & Plan (10/20/2021 2:37 PM ACCOUNT MANAGER RELIEF): Stable well controlled, blood pressure is at target today Continue losartan-hydrochlorothiazide 100-25 mg Assessment & Plan (07/26/2021 4:43 PM CDT): Stable, well controlled, blood pressure at target No episodes of hypotension Continue Hyzaar 100-25 mg Assessment & Plan (03/30/2021 12:52 PM CDT): Stable, well controlled, will continue Hyzaar 100-25 for management of blood pressure Assessment & Plan (01/03/2018 10:31 AM ACCOUNT MANAGER RELIEF): Stable. Continue on current medical regimen GERD (gastroesophageal reflux disease) 8 Assessment & Plan (02/26/2022 10:32 AM CDT): Stable, well controlled; continue Prevacid 30 mg daily Assessment & Plan (07/26/2021 4:44 PM CDT): Stable, well controlled, continue Prevacid 30 mg daily Assessment & Plan (01/03/2018 11:49 AM ACCOUNT MANAGER RELIEF): Continue IV pantoprazole for GI stress ulcer prophylaxis Hypothyroidism 01/03/2018 Assessment & Plan (02/26/2022 10:32 AM CDT): Stable, patient reports feeling tired for long duration, unclear if related to thyroid disease verses uncontrolled sleep apnea Will check TSH today Assessment & Plan (10/20/2021 2:37 PM ACCOUNT MANAGER RELIEF): Stable, well controlled; continue levothyroxine 88 mcg daily Will check TSH every 6-12 months Assessment & Plan (03/30/2021 12:56 PM CDT): Stable, well controlled, last TSH at target Patient has no signs or symptoms of hypo or hyperthyroidism Will continue levothyroxine 88 mcg Assessment & Plan (01/03/2018 12:35 AM ACCOUNT MANAGER RELIEF): Continue with levothyroxine Controlled type 2 diabetes m ellitus without complication, without long-term current use of insulin 01/03/2018 Assessment & Plan (02/22/2022 4:51 PM CDT): Stable, well controlled; last A1c was at target; patient is not regularly check blood sugars Continue metformin a 1000 mg daily, check A1c today Assessment & Plan (10/20/2021 2:36 PM ACCOUNT MANAGER RELIEF): Stable, well controlled, last A1c was 5.5; on metformin 1000 mg daily Patient is on general diet, exercise is working 8 hours per day on feet Continue metformin 1000 mg daily, Assessment & Plan (07/26/2021 4:44 PM CDT): Stable, well controlled last A1c was 5.5; does not regularly check home blood sugars Continue metformin a 1000 mg; if A1c remains move, consider decrease of metformin to 500 mg Assessment & Plan (03/30/2021 12:55 PM CDT): Stable, well controlled, patient on metformin 1000 mg Will continue current dose A1c is at target of 5.5, well controlled Continue to encourage carbohydrate limitation during diet Nausea and vomiting 01/03/2018 Assessment & Plan (01/04/2018 6:18 PM ACCOUNT MANAGER RELIEF): Continue to treat symptomatically. Patient prefers to remain on clear liquids for now Leg length discrepancy 04/12/2004 Acute diverticulitis Immunizations Immunization Administration Dates Next Due Influenza, Quadrivalent, Spl it, Intramuscular 07/25/2019,09/21/2016 Influenza, Quadrivalent, Spl it, Preservative Free, Intramuscular 08/16/2021,07/20/2020 Influenza, Trivalent, IM (MDV) 10/28/2015 Influenza, Unspecified 09/04/2021,2020(Deferred: Patient Refused),11/04/2019(Deferred: Patient Refused),07/30/2018,09/15/2017, 016,10/29/2015,09/21/2011 Social History Tobacco Use Types Packs/Day Years Used Date Smoking Tobacco: Never Smokeless Tobacco: Never Tobacco Cessation:Counseling Given: Not Answered Alcohol Use Standard Drinks/Week Comments Yes 0 (1 standard drink = 0.6 oz pur e alcohol) occ, use AUDIT-C Answer Date Recorded Q1: How often do you have a drink containing alc ohol? Monthly or less 10/19/2021 Q2: How many drinks containi ng alcohol do you have on a typical day when you are drinking? 1 or 2 10/19/2021 Q3: How often do you have si x or more drinks on one occasion? Never 10/19/2021 PHQ-2 Answer Date Recorded PHQ-2 Total Score (If total score is 3 or more points, staff should administer the PHQ-9) 0 02/22/2022 Comments No Sex and Gender Information Value Date Recorded Sex Assigned at Not on file Legal Sex Female 12:04 PM ACCOUNT MANAGER RELIEF Gender Identity Not on file Sexual Orientation Not on file Last Filed Vital Signs Vital Sign Reading Time Taken Comments Blood Pressure 149/102 11/08/2022 1:41 PM ACCOUNT MANAGER RELIEF pt has not taken her daily BP meds yet Pulse 81 11/08/2022 1:41 PM ACCOUNT MANAGER RELIEF Temperature 36.8 C (98.3 F) 06/28/2022 9:44 PM CDT Respiratory Rate 18 11/08/2022 1:41 PM ACCOUNT MANAGER RELIEF Oxygen Saturation 100% 11/08/2022 1:4 1 PM ACCOUNT MANAGER RELIEF Inhaled Oxygen Concentration - - Weight 89.8 kg (198 lb) 04/15/2025 2:16 PM CDT Height 160 cm (5' 3) 04/15/2025 2:16 PM CDT Body Mass Index 35.07 04/15/2025 2:16 PM CDT Plan of Treatment Not on file Procedures Procedure Name Priority Date/Time Associated Diagnosis Comments SCREENING MAMMOGRAM BILATERAL W MICHAEL Schedule Routine, Read Routine (OP Routine) 04/15/2025 2:24 PM CDT Screening mammogram, encounter for EGFR STAT 06/28/2022 9:28 PM CDT HEMOGLOBIN A1C Routine 04/19/2022 10:39 AM CDT Controlled type 2 diabetes mellitus without complication, without long-term current use of insulin (HCC) Dyslipidemia associated with type 2 diabetes mellitus (HCC) LIPID PANEL Routine 04/19/2022 10:39 AM CDT Controlled type 2 diabetes mellitus without complication, without long-term current use of insulin (HCC) Dyslipidemia associated with type 2 diabetes mellitus (HCC) ALBUMIN CREATININE RATIO, URINE Routine 04/19/2022 10:39 AM CDT Controlled type 2 diabetes mellitus without complication, without long-term current use of insulin (HCC) Dyslipidemia associated with type 2 diabetes mellitus (HCC) DIABETIC EYE EXAM Routine 01/25/2022 from Last 3 Months or Most Recently Relevant to Health Maintenance Results * Screening Mammogram Bilateral W Michael (04/15/2025 2:24 PM CDT) Anatomical Region Laterality Modality Breast Bilateral Mammography Impressions 04/15/2025 5:58 PM CDT Bilateral No evidence of malignancy in either breast. OVERALL BI-RADS FINAL ASSESSMENT: 1 - Negative RECOMMENDATION: Recommend bilateral annual screening mammography. Narrative 04/15/2025 5:58 PM CDT EXAMINATION: Screening Mammogram Bilateral W Michael: 04/15/2025 COMPARISON: Relevant prior studies available at the time of interpretation were reviewed. TECHNIQUE: Mammography was performed with 2D and digital breast tomosynthesis (DBT) images. CAD was utilized. BREAST PARENCHYMAL COMPOSITION: There are scattered areas of fibroglandular density. FINDINGS: Bilateral There is no suspicious mass, calcification, or architectural distortion in either breast. Self Screening Mammogram IMG MAMMO PROCEDURES Fi nal Result * eGFR (06/28/2022 9:28 PM CDT) eGFR 106 mL/min/1. 73 m2 [facility] ([place]) Comment: Interpretive Data Reference Interval Normal >/= 90 mL/min/1.73m2 Mildly decreased* 60 - 89 mL/min/1.73m2 Mildly to moderately decreased 45 - 59 mL/min/1.73m2 Moderately to severely decreased 30 - 44 mL/min/1.73m2 Severely decreased 15 - 29 mL/min/1.73m2 Kidney Failure < 15 mL/min/1.73m2 *Relative to young adult level Estimated glomerular filtration rate is determined by the 2020 CKD-EPI equation recommended by the National Kidney Foundation (A Unifying Approach to GFR Estimation: Recommendations of the NKF-ASK Task Force on Reassessing the Inclusion of Race in Diagnosing Kidney Disease, JASN 2020). The CKD-EPI equation should not be used for patients with unstable renal function and has not been validated in children and those over 70. Current interpretive data was last reviewed 2021. Blood 06/28/2022 9:28 PM CDT 06/28/2022 9:30 PM CDT Lui Stanley MD LAB BLOOD ORDERABLES Final R esult [facility] ([place]) [address] [facility] [place] [address] * Albumin Creatinine Ratio, Urine (04/19/2022 10:39 AM CDT) Albumin Ur 13.3 mg/L [facility] ([place]) Comment: Interpretive Data No reference range established. Current interpretive data was last revised 2019. Testing performed by: [facility], [address] [place] [address], [place]., [address] Creatinine Ur 121.1 mg/dL [facility] ([place]) Comment: Interpretive Data No reference range established. Current interpretive data was last revised 2019. Testing performed by: [facility], [address] [place] [address]., [id number] Albumin Creatinine Ratio, Ur 11 1 - 29 mg/g [facility] ([place]) Comment:Testing performed by : [facility], [address] [place] [address]., [id number] Urine 04/19/2022 10:3 9 AM CDT 04/19/2022 5:46 PM CDT Jax Barbosa MD LAB URINE ORDERABLES Michelle l Result Performing Organization Address City/[facility]/ZIP Co de Phone Number [facility] ([place]) [address] [facility] [place] [address] * (ABNORMAL) Hemoglobin A1c (04/19/2022 10:39 AM CDT) Hgb A1C 6.2(H) 4.0 - 5.6 % [facility] ([place]) Comment:Testing performed by : [facility], [address] [place] [address]., [id number] Estimated Average Glucose 131 mg/dL [facility] ([place]) Comment: The ADA recommends reporting an estimated Average Glucose (eAG) with all Hemoglobin A1c results using the equation derived from a study of 507 normal and diabetic adults. Minority populations were underrepresented and children were not included. (Diabetes Care 31:1110-1813, 2008). The eAG is not equivalent to a fasting glucose. Testing performed by: [facility], [address] [place] [address]., [id number] Blood 04/19/2022 10:3 9 AM CDT 04/19/2022 5:46 PM CDT us Jax Barbosa MD LAB BLOOD ORDERABLES Michelle l Result Performing Organization Address City/[facility]/ZIP Co de Phone Number [facility] ([place]) 1 [facility] [place] [address] * (ABNORMAL) Lipid panel (04/19/2022 10:39 AM CDT) Cholesterol 232(H) 30 - 199 mg/dL [facility] ([place]) Comment: Interpretive Data Ages < or = 19 years Acceptable: <170 mg/dL Borderline high: 170-199 mg/dL High: >or= 200 mg/dL Ages > or = 20 years Desirable: <200 mg/dL Borderline high: 200-239 mg/dL High: >or= 240 mg/dL Literature References: 1. Expert Panel on Integrated Guidelines for Cardiovascular Health and Risk Reduction in Children and Adolescents. Pediatrics 2011;128:S213 2. NCEP Expert Panel. Circulation 2004;110:227 Current Interpretive Data was last revised on 2018. Testing performed by: [address] [address] Triglycerides 105 <=149 mg/dL [facility] ([place]) Comment: Interpretive Data Ages < or = 9 years Acceptable: <75 mg/dL Borderline high: 75-99 mg/dL High: >or= 100 mg/dL Ages 10 to 20 years Acceptable: <90 mg/dL Borderline high: 90-129 mg/dL High: >or= 130 mg/dL Ages > or = 20 years Desirable: <150 mg/dL Borderline high: 150-199 mg/dL High: 200-499 mg/dL Very high: >or= 499 mg/dL Literature References: 1. Expert Panel on Integrated Guidelines for Cardiovascular Health and Risk Reduction in Children and Adolescents. Pediatrics 2011;128:S213 2. NCEP Expert Panel. Circulation 2003;110:227 Current Interpretive Data was last revised on 2018. Testing performed by: [facility], [address] [place] [address]., [address] HDL 56 >=40 mg/dL [facility] ([place]) Comment: Interpretive Data Ages < or = 19 years Acceptable: >45 mg/dL Borderline low: 40-45 mg/dL Low: <40 mg/dL Ages > or = 20 years Desirable: >or= 60 mg/dL Low: <40 mg/dL Literature References: 1. Expert Panel on Integrated Guidelines for Cardiovascular Health and Risk Reduction in Children and Adolescents. Pediatrics 2011;128:S213 2. NCEP Expert Panel. Circulation 2004;110:227 Current Interpretive Data was last revised on 2018. Testing performed by: [facility], [address] [place] [address]., [address] LDL, calculated 155(H) <=129 mg/dL [facility] ([place]) Comment: Interpretive Data Ages < or = 19 years Acceptable: <110 mg/dL Borderline high: 110-129 mg/dL High: >or= 130 mg/dL Ages > or = 20 years Optimal: <100 mg/dL Near optimal: 100-129 mg/dL Borderline high: 130-159 mg/dL High: >160 mg/dL Literature References: 1. Expert Panel on Integrated Guidelines for Cardiovascular Health and Risk Reduction in Children and Adolescents. Pediatrics 2011;128:S213 2. NCEP Expert Panel. Circulation 2004;110:227 Current Interpretive Data was last revised on 2018. Testing performed by: [facility], [address] [place] [address]., [address] Non-HDL Cholesterol 176 mg/dL [facility] ([place]) Comment: Interpretive Data Ages < or = 19 years Acceptable: <120 mg/dL Borderline high: 120-144 mg/dL High: >145 mg/dL Ages > or = 20 years When triglycerides are >200 mg/dL, Non-HDL cholesterol is a secondary target of therapy with treatment goals that are 30 mg/dL greater than the LDL cholesterol target. Literature References: 1. Expert Panel on Integrated Guidelines for Cardiovascular Health and Risk Reduction in Children and Adolescents. Pediatrics 2011;128:S213 2. NCEP Expert Panel. Circulation 2004;110:227 Current Interpretive Data was last revised on 2018. Testing performed by: [facility], [address] [place] [address]., [id number] Chol/HDL ratio 4 [facility] ([place]) Comment:Testing performed by : [address] [id number] Blood 04/19/2022 10:3 9 AM CDT 04/19/2022 5:46 PM CDT us Jax Barbosa MD LAB BLOOD ORDERABLES Michelle river Result [facility] ([place]) 1 [facility] [place] [address] * Diabetic Eye Exam (01/25/2022) us Historical Provider MD HEALTH MAINTENANCE Final Result from Last 3 Months or Most Recently Relevant to Health Maintenance Insurance [address] [place] [address] [employer] [place] [facility] [address] [facility] [address] [place] [address] [facility] ANTHEM ACCESS BLUE ACC CHOICE OOS Member Subscriber Plan / Payer ( fective 2022-Present) Name:MelissakevinTrent Lore Relation to Subscriber:Self Name:MelissakevinTrent Lore Payer ID:[id number] ([facility]) Type:LRN Address: [address] [employer] [address] [place] [address] [place] ANTHEM ACCESS [place]ICE Advance Directives For more information, please contact: [phone] * Full Code (Latest Code Status on File) Date Activated Date Inactivated Comments 01/03/2018 12:21 AM 01/05/2018 4:28 PM * Full Code Date Activated Date Inactivated Comments 01/02/2018 3:24 PM 01/03/2018 12:21 AM Care Teams Manager Personal Relationship Specialty Start Date End Date Valentina Johnson NP [address] [place] [id number] PCP - General Nurse Practitioner 06/17/24
--- OUTSIDE RECORDS SUMMARY | 2025-05-10 10:22 | XMS_ITS | Encounter Summary ---
Author Organization [employer] Address [address] [place] [address] Care Team Providers Care Paradichlorobenzene Machine Operator Name Role Phone Unavailable Primary Care Provider Unavailabl e Encounter Details Date Type Department Care Team (Latest Contact Info) Description 03/08/2005 Outpatient [facility] [employer] [address] [facility] [place] [address] [place] [address] [facility] [address] [place] [address] BRACHIAL NEURITIS NOS (Primary Dx) Social History Tobacco Use Types Packs/Day Years Used Date Smoking Tobacco: Never Assessed Comments Unknown Sex and Gender Information Value Date Recorded Sex Assigned at Not on file Legal Sex Female 5:20 AM SENIOR MILITARY ANALYST Gender Identity Not on file Sexual Orientation Not on file documented as of this encounter Plan of Treatment Not on file documented as of this encounter Visit Diagnoses Diagnosis Brachial neuritis or radiculitis NOS- Primary Brachial neuritis or radiculitis nos documented in this encounter
--- OUTSIDE RECORDS SUMMARY | 2025-05-10 10:22 | XMS_ITS | Clinical Summary ---
Author Organization [facility] Address [address] [place] [id number] Care Team Providers Care Relay Mechanic Name Role Phone Unavailable Primary Care Provider Unavailabl e Encounters Date Type Department Care Team Description 03/26/2025 External Device Data ST[facility] ABSTRACTION Provider, Abstract 03/25/2025 External Device Data [facility] ABSTRACTION Provider, Abstract 03/24/2025 External Device Data [facility] ABSTRACTION Provider, Abstract from Last 3 Months Social History Tobacco Use Types Packs/Day Years Used Date Smoking Tobacco: Never Assessed Comments Unknown Sex and Gender Information Value Date Recorded Sex Assigned at Not on file Legal Sex Female 5:20 AM POULTRY BARN MANAGER Gender Identity Not on file Sexual Orientation Not on file Plan of Treatment Health Maintenance Due Date Last Done Comments DIABETES ANNUAL FOOT EXAM 1978 DIABETES ANNUAL RETINAL EXAM 1978 DIABETES MICROALBUMIN ANNUAL SCREEN 1978 LDL CHOLESTEROL ANNUAL 1978 DTAP/TDAP/TD VACCINES (1 - Tdap) 1979 HPV/Cotest (21-29) 1981 CERVICAL CANCER SCREENING 1990 HPV/Cotest (30-65) 1990 PAP SMEAR 1990 FIT-DNA Q 3 years 2005 FIT/FOBT Q 1 year 2005 Flex Sig/CT Colonography Q 5 years 2005 ZOSTER VACCINE (1 of 2) 2010 RSV VACCINE (60+ or ) (1 - Risk 60-74 years 1-dose series) 2020 DIABETES HBA1C Q 6 MONTHS 10/19/2022 04/19/2022 BREAST CANCER SCREENING 12/27/2024 12/27/19 24, 12/19/2022, 05/01/2022, Additional history exists INFLUENZA VACCINE (#1) 2025 , 07/20/2020, 07/25/2019, Additional history exists COLORECTAL SCREENING 09/08/2028 09/08/2018 Colorectal Cancer Screening 09/08/2028 Insurance [facility] [employer] [facility] [employer] CHOICE
--- OUTSIDE RECORDS SUMMARY | 2025-05-10 10:22 | XMS_ITS | Clinical Summary ---
Author Organization [facility] Address [address] [place] [address] Care Team Providers Care Air Hammer Stripper Name Role Phone Avinash Chavez MD Primary Care Provider [phone] Source Comments [facility],non-owned Affiliates and Associated Physician Practices is amultiple site organization consisting of ambulatory clinics and hospital sitesin [place], [place], [place] and [place]. This disclosure is being madepursuant to the Care Everywhere program and may not contain all information available regarding this patient. Last updated 18.[facility] Allergies Active Allergy Reactions Criticality Noted Date Comments Adhesive Sensitivity Rash Medium 03/30/2021 Azithromycin Nausea and/or Vomiting 11/14/2009 And dizziness Latex Unknown 11/10/2020 Simvastatin Other 02/28/2010 Pain all over, especially at back Medications * Be aware that medications may not be up to date on this document. Alwaysverify current medications with the patient. timolol gel-forming (TIMOPTIC-XE) 0.5 % ophthalmic gel-forming Instill 1 (one) drop into both eyes once daily Active gabapentin (NEURONTIN) 300 MG capsule Take 1 (one) capsule by mouth 3 times daily 6 6 Active latanoprost (XALATAN) 0.005 % ophthalmic solution Instill 1 (one) drop into both eyes at bedtime 9 Active PROAIR HFA 108 (90 Base) MCG/ACT inhaler Inhale 1 (one) puff by mouth every 6 hours 0 Active metFORMIN (GLUCOPHAGE) 1000 MG tablet TAKE ONE TABLET BY MOUTH ONCE DAILY 90 tablet 3 0 Active Additional Information Patient taking differently: 1,000 mg Oral DAILY WITH BREAKFAST, Reported on 02/26/2025 levothyroxine (SYNTHROID) 88 MCG tablet TAKE 1 TABLET BY MOUTH EVERY DAY 90 tablet 1 0 Active Additional Information Patient taking differently: 88 mcg Oral DAILY BEFORE BREAKFAST, Reported on 02/26/2025 lansoprazole (PREVACID) 30 MG capsule TAKE ONE CAPSULE BY MOUTH ONCE DAILY BEFORE BREAKFAST 90 capsule 1 1 Active Additional Information Patient taking differently: 30 mg Oral DAILY BEFORE BREAKFAST, Reported on 02/26/2025 rizatriptan (MAXALT) 10 MG tablet TAKE ONE TABLET BY MOUTH ONCE AT FIRST SIGN OF MIGRAINE MAY REPEAT ONE TIME AFTER 2 HOURS IF NEEDED 9 tablet 2 1 Active Additional Information Patient taking differently: 10 mg Oral ONCE, Reported on 02/26/2025 FLETCHER CONTOUR NEXT TEST test strip Use 1 (one) strip as directed 2 Active Microlet Lancets MISC Use 1 Each as directed 2 Active Cholecalciferol (vitamin D3) 1.25 MG (22496 UT) capsule Take 1 (one) capsule by mouth every 7 days 3 Active amLODIPine (Norvasc) 5 MG tablet Take 1 (one) tablet by mouth once daily 4 Active losartan (Cozaar) 100 MG tablet Take 1 (one) tablet by mouth once daily 4 Active ondansetron, disintegrating, (Zofran ODT) 8 MG tablet Take 1 (one) tablet by mouth as needed 4 Active potassium chloride ER (Klor-Con M) 10 MEQ tablet Take 1 (one) tablet by mouth once daily Active sertraline (Zoloft) 50 MG tablet Take 1 (one) tablet by mouth once daily 5 Active Active Problems Problem Noted Date Diagnosed Date Mastodynia 08/08/2020 Screen for colon cancer 09/08/2018 Overview (09/08/2018): 09/2018 colon neg Next colon 09/2028 Hiatal hernia 04/02/2013 Overview (04/02/2013): 03/[address] Diverticulosis of colon 04/02/2013 Overview (04/02/2013): 03/02/[address] incidental finding [address] a CT scan of her abd Kidney stone 04/02/2013 Overview (04/02/2013): 04/01/13 Stone right kidney Dysmetabolic syndrome X 02/15/2010 Hyperinsulinism 02/15/2010 Hyperlipidemia 02/15/2010 Malaise and fatigue 01/30/2010 IBS (irritable bowel syndrome) 01/30/2010 HTN (hypertension) 11/14/2009 Hallux limitus 11/14/2009 Overview (11/14/2009): Right first MPJ Plantar fasciitis 11/14/2009 Overview (11/14/2009): Right foot secondary to limb length discrepancy. Tibialis Posterior Tendon Tear, Left Foot 2009 Overview (11/14/2009): Versus tibial tendonitis Hypothyroidism 06/16/2009 Back pain 12/10/2008 Spasm of muscle 12/10/2008 Asthma 07/04/2006 Herpes zoster 11/24/2004 Leg length discrepancy 04/12/2004 Multinodular goiter 08/21/2002 Encounters Date Type Department Care Team Description 03/03/2025 Telephone [facility] - ENT [address], [facility] [address] [place] [address] Maribell Cantu RN Follow-up (Voice after injection) 02/26/2025 11:15 AM CDT Procedure visit [facility] [address], [place] [address] [place] [address] Twan Will MD Laryngeal spasm ; Spasmodic dysphonia; Hoarseness 02/26/2025 Travel from Last 3 Months Immunizations Immunization Administration Dates Next Due INFLUENZA VACCINE, TRIV. (AF LURIA, FLUZONE TRIVALENT; 6MO+) (IIV3) 10/28/2015 FLU VACCINE QUAD IIV4 SPLIT 0.25 ML IM 09/21/2016 INFLUENZA VACCINE 09/04/2021, 8,09/15/2017,2015,10/29/2015,09/21/2011 INFLUENZA VACCINE, QUADR. (A FLURIA, FLUZONE QUADRIVALENT; 6MO+) (IIV4) 07/25/2019 INFLUENZA VACCINE, QUADR. (F LUZONE; FLULAVAL; FLUARIX; AFLURIA QUADRIVALENT; 6MO+), 0.5 ML (IIV4) 08/16/2021,07/20/2020 PNEUMOCOCCAL PPSV23 04/16/2013(Deferred: Patient Refused),04/01/2013(Deferred: Other) Family History Medical History Relation Name Comments Diabetes Brother Diabetes Father Heart Disease Father Hypertension Father Glaucoma Mother Diabetes Other 1 Grandmother Heart Disease Other 1 Grandmother Diabetes Other 2 Grandfather Cancer - Breast Other 3 Cousin Relation Name Status Comments Brother Father Mother Other 1 Grandmother Other 2 Grandfather Other 3 Cousin Social History Tobacco Use Types Packs/Day Years Used Date Smoking Tobacco: Never Smokeless Tobacco: Never Tobacco Cessation:Counseling Given: Not Answered Alcohol Use Standard Drinks/Week Comments No 0 (1 standard drink = 0.6 oz pur e alcohol) Comments No Sex and Gender Information Value Date Recorded Sex Assigned at Not on file Legal Sex Female 4:31 AM GAS ENGINE OPERATOR Gender Identity Not on file Sexual Orientation Not on file Last Filed Vital Signs Vital Sign Reading Time Taken Comments Blood Pressure 121/81 07/05/2022 8:32 AM CDT Pulse 87 07/05/2022 8:32 AM CDT Temperature 36.7 C (98.1 F) 07/05/2022 8:32 AM CDT Respiratory Rate 18 09/08/2018 12:19 PM GAS ENGINE OPERATOR Oxygen Saturation 96% 09/08/2018 12:19 PM GAS ENGINE OPERATOR Inhaled Oxygen Concentration - - Weight 87.5 kg (193 lb) 12/04/2024 11:19 AM GAS ENGINE OPERATOR reported Height 160 cm (5' 3) 12/04/2024 11:19 AM GAS ENGINE OPERATOR re ported Body Mass Index 34.19 12/04/2024 11:19 AM GAS ENGINE OPERATOR Plan of Treatment Health Maintenance Due Date Last Done Comments COLOGUARD (AGES 45-75) - COLON CA SCREENING 1960 CT COLONOGRAPHY - COLON CA SCREENING 1960 FIT - COLON CA SCREENING 1960 FLEX SIG - COLON CA SCREENING 1960 HIV SCREENING 1975 DTAP/TDAP/TD VACCINES (1 - Tdap) 1979 PNEUMOCOCCAL VACCINE 50+ (1 of 2 - PCV) 1979 PAP with HPV 1990 ZOSTER VACCINE (1 of 2) 2010 Respiratory Syncytial Virus (RSV) Vaccine Pt: or over 60 yrs (1 - Risk 60-74 years 1-dose series) 2020 COVID-19 VACCINE (1 - 2023- season) 2024 DEPRESSION SCREENING 11/04/2024 SCREENING FOR DIABETES 06/28/2025 , 04/19/2022, 10/19/2021, Additional history exists INFLUENZA VACCINE (#1) 2025 , 08/16/2021, 07/20/2020, Additional history exists MAMMOGRAM 12/27/2025 12/27/2023, 12/05, 06/08/2021, Additional history exists LIPID TESTING 03/30/2026 03/30/2021, 11/05, 07/21/2020, Additional history exists COLON MONITORING 09/08/2028 09/08/2018, 09/08/2018 COLONOSCOPY - COLON CA SCREENING 09/08/2028 09/08/2018, 09/08/2018 Colorectal Cancer Screening 09/08/2028 HEPATITIS C SCREENING Completed 06/06/2017, 014 HEPATITIS B VACCINE Aged Out No longe r eligible based on patient's age to complete this topic HIB VACCINE Aged Out No longer eligi ble based on patient's age to complete this topic HPV VACCINE Aged Out No longer eligi ble based on patient's age to complete this topic MENINGOCOCCAL (Group B) VACCINE SHARED DECISION-MAKING Aged Out No longer eligible based on patient's age to complete this topic MENINGOCOCCAL GROUPS A/C/Y/W VACCINE Aged Out No longer eligible based on patient's age to complete this topic Goals Goal Patient Goal Type Associated Problems Recent Progress Patient-Stated? Author Blood Pressure < 140/90 Blood Pressure 121/81(2021 8:32 AM CDT) Marce Castanon MA Note: Caring for Your High Blood Pressure Diet Eat a healthy diet: Eat healthy foods from all of the 5 food groups which are fruits, vegetables, breads, dairy products, meat and fish. Eating healthy foods may help you feel better and have more energy. To help control your blood pressure, you may need to limit the amount of salt and fat you eat. Read labels to see how much sodium (salt or sodium chloride) is in the food that you buy at the store. Avoid foods and drinks that are high in sodium (salt). These include smoked meats (such as ham and dick), cheese, canned and frozen foods, and butter and margarine. Read all labels carefully. Do not add salt to your food. Learn to use fresh herbs, spices, or salt substitutes to add flavor to your food. Ask your provider for any dietary restrictions that are appropriate for you. Where can I go for more information? [place] [employer] National Center: http://www.americanheart.org 1. In the top header, click C onditions . 2. In the top header, click h igh blood pressure. 3. For a printable blood pressure tracker, scroll toward the bottom of the page to Related Tools, and click H BP Trackers. 8-082-ZGH-USA-1 or ( ) National Heart, Lung and Blood [place]: http://www.nhlbi.nih.gov/health/infoctr/index.htm Procedures Procedure Name Priority Date/Time Associated Diagnosis Comments AK CHEMODENER MUSCLE LARYNX EMG Routine 02/26/2025 11:18 AM CDT Laryngeal spasm Spasmodic dysphonia Hoarseness COMPREHENSIVE METABOLIC PANEL Routine 12/01/2020 2:28 PM GAS ENGINE OPERATOR Hyperinsulinism Hyperlipidemia, unspecified hyperlipidemia type Dysmetabolic syndrome X Hypothyroidism due to acquired atrophy of thyroid Essential hypertension Neuropathy LIPID PROFILE Routine 12/01/2020 2:28 PM GAS ENGINE OPERATOR Hyperinsulinism Hyperlipidemia, unspecified hyperlipidemia type Dysmetabolic syndrome X Hypothyroidism due to acquired atrophy of thyroid Essential hypertension Neuropathy ENDOSCOPY, COLON, SCREENING Routine 09/08/2018 10:55 AM GAS ENGINE OPERATOR Screen for colon cancer HEPATITIS C ANTIBODY 12/31/2013 11:53 AM GAS ENGINE OPERATOR MAMMO BILATERAL DIAGNOSTIC Routine 05/28/2012 Enlarged lymph nodes from Last 3 Months or Most Recently Relevant to Health Maintenance Results * AK CHEMODENER MUSCLE LARYNX EMG (02/26/2025 11:18 AM CDT) Narrative Twan Will MD - 02/26/2025 11:18 AM CDT Twan Will MD 02/26/2025 1:01 PM HISTORY: 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 Medical therapy and speech therapy do not provide sufficient resolution of symptoms for laryngeal spasm (adductor spastic dysphonia), thus botox injections are the recommended treatment. The patient questionnaire was reviewed with the patient and the benefit of the previous injection(s) was confirmed. The effect of the previous injection has now wained and symptoms of spasmodic dysphonia have returned. Please see the patient questionaire for further historical information and the patients current status. The interval between injections is a direct result of the patient report of the acute symptoms (breathiness) following the injection and optimizing the longest duration possible with the ideal voice result. The effect of the symptoms on the patient's quality of life make this treatment medically necessary. Last injection performed: 12/04/2024 PHYSICAL EXAMINATION: Constitutional: Well developed and well nourished ENT: Oropharynx normal, nasal cavity no visible drainage Psych: Alert & oriented Voice: strained, dysphonic Site of injection: Thyroarytenoid Muscle INJECTION: Left: 0.07 cc's 1.2 units Right: 0.0 cc's 0.0 units Botox (reconstituted at 100 units/6 mL NS) is drawn up into the syringe for delivery to the patient. As per the above dosing botox was administered to the patient and the residual amount of botox 98.8 units was wasted. See nurses note from this date for Botox supply source Bot Type A Lot # [id number] Exp. Date: 03/2027 PROCEDURE NOTE: (Adductor spasmodic dysphonia) a 25 gauge 5/8 inch needle attached to a 3 cc syringe was passed transcutaneously through the skin and soft tissue superior to the cricoid cartilage and thru the cricothyroid membrane and into the subglottic airway. After confirming placement in the airway by aspirating a small amount of air, 1-2 cc of 1% Lidocaine with 1/100,000 epinephrine was injected into the airway. Using a Quinn coated needle (27 ga 1 1/2 inch) and a transcutaneous technique with EMG guidance, the botulinum toxin was injected into the left and/or right thyroarytenoid muscle. The needle was passed through the skin, cricothyroid membrane into the airway and then turned laterally and superiorly into the under surface of the vocal fold. When the tip of the needle was in the thyroid arytenoid muscle and confirmed by action potentials on the EMG monitor the Botox was injected. The needle was then removed. The patient tolerated the procedure well. Twan Will MD Twan Will MD PROCEDURE/MINOR SURGICAL ORD ERABLES Final Result * COMPREHENSIVE METABOLIC PANEL (12/01/2020 2:28 PM GAS ENGINE OPERATOR) Glucose 95 70 - 105 mg/dL [facility] INSURANCE BILL BUN 17 9.8 - 20.1 mg/dL [facility] INSURANCE BILL Creatinine 0.74 0.57 - 1.11 mg/dL [facility] INSURANCE BILL eGFR by MDRD >60 >60 mL/min/1.7 3m2 [facility] INSURANCE BILL eGFR by MDRD >60 >60 mL/min/1.7 3m2 [facility] INSURANCE BILL Sodium 137 136 - 145 mmol/L [facility] INSURANCE BILL Potassium 3.9 3.5 - 5.1 mmol/L [facility] INSURANCE BILL Chloride 98 98 - 107 mmol/L [facility] INSURANCE BILL CO2 29 23 - 31 mmol/L [facility] INSURANCE BILL Calcium 9.9 8.4 - 10.4 mg/dL [facility] INSURANCE BILL Protein Total 7.2 6.4 - 8.3 gm/dL [facility] INSURANCE BILL Albumin 4.4 3.2 - 4.6 gm/dL [facility] INSURANCE BILL Bilirubin Total 0.3 0.2 - 1.2 mg/dL [facility] INSURANCE BILL Comment:Attention clinician: Reference Range change. Alkaline Phosphatase 96 40 - 150 U/L [facility] INSURANCE BILL Comment:Attention clinician: Reference Range change. AST 21 5 - 34 U/L [facility] INSURANCE BILL ALT 25 0 - 61 U/L [facility] INSURANCE BILL Blood BLOOD SPECIMEN / Unknown 12/01/2020 2:28 PM GAS ENGINE OPERATOR 12/01/2020 Narrative Resulting Agency Comment Lab Testing performed at: [address] Precious LEE [id number] Mariusz Dhaliwal DO LAB - CHEMISTRY ORDERABLES Final Result Performing Organization Address City/[facility]/ZIP Co de Phone Number [facility] INSURANCE BILL [address] [place] [address] * (ABNORMAL) LIPID PROFILE (12/01/2020 2:28 PM GAS ENGINE OPERATOR) Cholesterol 243(H) <200 mg/dL [facility] INSURANCE BILL Triglycerides 248(H) <150 mg/dL [facility] INSURANCE BILL HDL Cholesterol 62 >40 mg/dL [facility] INSURANCE BILL VLDL Calculated 50(H) <=30 mg/dL [facility] INSURANCE BILL LDL Calculated 131(H) <130 mg/dL [facility] INSURANCE BILL Blood BLOOD SPECIMEN / Unknown 12/01/2020 2:28 PM GAS ENGINE OPERATOR 12/01/2020 Narrative Resulting Agency Comment Lab Testing performed at: [place] [address] [address] LEE [id number] us Mariusz Dhaliwal DO LAB - CHEMISTRY ORDERABLES Final Result [facility] INSURANCE BILL [address] [place] [address] * ENDOSCOPY, COLON, SCREENING (09/08/2018 10:55 AM GAS ENGINE OPERATOR) Report Endoscopy POC _ Patient Name: Trent Henley Procedure Date: 09/08/2018 10:55 AM Date of : 1960 Admit Type: Outpatient Age: 57 Gender: Female Attending MD: Jae Griffiths MD _ Procedure: Colonoscopy Indications: Screening for colorectal malignant neoplasm, This is the patient's first colonoscopy Providers: Jae Griffiths MD (Doctor) Referring MD: Mariusz Dhaliwal DO (Referring MD) Medicines: Monitored Anesthesia Care Complications: No immediate complications. _ Procedure: Pre-Anesthesia Assessment: - Prior to the procedure, a History and Physical was performed, and patient medications and allergies were reviewed. The patient is competent. The risks and benefits of the procedure and the sedation options and risks were discussed with the patient. All questions were answered and informed consent was obtained. Patient identification and proposed procedure were verified by the physician in the pre-procedure area. Mental Status Examination: alert and oriented. Airway Examination: normal oropharyngeal airway and neck mobility. Respiratory Examination: clear to auscultation. CV Examination: normal. Prophylactic Antibiotics: The patient does not require prophylactic antibiotics. Prior Anticoagulants: The patient has taken no previous anticoagulant or antiplatelet agents. ASA Grade Assessment: II - A patient with mild systemic disease. After reviewing the risks and benefits, the patient was deemed in satisfactory condition to undergo the procedure. The anesthesia plan was to use monitored anesthesia care (MAC). Immediately prior to administration of medications, the patient was re-assessed for adequacy to receive sedatives. The heart rate, respiratory rate, oxygen saturations, blood pressure, adequacy of pulmonary ventilation, and response to care were monitored throughout the procedure. The physical status of the patient was re-assessed after the procedure. After I obtained informed consent, the scope was passed under direct vision. Throughout the procedure, the patient's blood pressure, pulse, and oxygen saturations were monitored continuously. The Colonoscope was introduced through the anus and advanced to the cecum, identified by appendiceal orifice and ileocecal valve. The colonoscopy was performed without difficulty. The patient tolerated the procedure well. The quality of the bowel preparation was excellent. Findings: The perianal and digital rectal examinations were normal. Pertinent negatives include no palpable rectal lesions. Non-bleeding internal hemorrhoids were found during retroflexion. The hemorrhoids were moderate. The entire examined colon appeared normal. _ Impression: - Non-bleeding internal hemorrhoids. - The entire examined colon is normal. - No specimens collected. Recommendation: - Repeat colonoscopy in 10 years for surveillance. - Return to my office PRN. - Return to primary care physician as previously scheduled. Procedure Code(s): --- Professional --- G0121, Colorectal cancer screening; colonoscopy on individual not meeting criteria for high risk --- Technical --- G0121, Colorectal cancer screening; colonoscopy on individual not meeting criteria for high risk Diagnosis Code(s): --- Professional --- Z12.11, Encounter for screening for malignant neoplasm of colon K64.8, Other hemorrhoids --- Technical --- Z12.11, Encounter for screening for malignant neoplasm of colon K64.8, Other hemorrhoids CPT copyright 2015 [place] [employer]. All rights reserved. The codes documented in this report are preliminary and upon certified procedural coder review may be revised to meet current compliance requirements. Dr. Jae Griffiths MD ___ Jae Griffiths MD 09/08/2018 11:48:23 AM This report has been signed electronically. Number of Addenda: 0 Note Initiated On: 09/08/2018 10:55 AM [facility] 09/08/2018 10:5 5 AM GAS ENGINE OPERATOR Jae Griffiths MD GI PROCEDURE ORDERABLES Rosalino yeimi Result - Final Performing Organization Address [facility] Co de Phone Number [facility] [place] [address] * HEPATITIS C ANTIBODY (12/31/2013 11:53 AM GAS ENGINE OPERATOR) Hepatitis C Antibody NON-REACTI VE NON-REACT LAZ [facility] Signal to Cut-Off 0.02 <1.00 [facility] Comment: Test Performed at: [employer] [address] [place] [address] MILIND YANG DO,MPH 12/31/2013 11:5 3 AM GAS ENGINE OPERATOR 12/31/2013 11:55 AM GAS ENGINE OPERATOR Mariusz Dhaliwal DO LAB - CHEMISTRY ORDERABLES Final Result Performing Organization Address [facility] de Phone Number [facility] [address] [place] [address] * MAMMO BILATERAL DIAGNOSTIC (05/28/2012) Anatomical Region Laterality Modality Breast Other Mariusz Dhaliwal DO MAMMO ORDERABLES Final Result from Last 3 Months or Most Recently Relevant to Health Maintenance Insurance [employer] [address] [place] [id number] AN[employer] [facility] [place] [id number] Care Teams Air Hammer Stripper Relationship Specialty Start Date End Date Avinash Chavez MD [address] [place] [id number] PCP - General Family Medicine 06/12/23
--- OUTSIDE RECORDS SUMMARY | 2025-05-10 10:22 | XMS_ITS | Encounter Summary ---
Author Organization [facility] Address [address] [place] [address] Care Team Providers Care Wearing Apparel Assembler Name Role Phone Unavailable Primary Care Provider Unavailabl e Encounter Details Date Type Department Care Team (Late st Contact Info) Description 10/09/2000 Outpatient Historical [facility] MRI DEPT Sohail Adair MD [address] [facility] [address] [place] [address] Disturbance of skin sensation (Primary Dx) Social History Tobacco Use Types Packs/Day Years Used Date Smoking Tobacco: Never Assessed Comments Unknown Sex and Gender Information Value Date Recorded Sex Assigned at Not on file Legal Sex Female 5:20 AM INVOICING SPECIALIST Gender Identity Not on file Sexual Orientation Not on file documented as of this encounter Plan of Treatment Not on file documented as of this encounter Visit Diagnoses Diagnosis Disturbance of skin sensation- Primary documented in this encounter
--- OUTSIDE RECORDS SUMMARY | 2025-05-10 10:22 | XMS_ITS | Encounter Summary ---
Author Organization [facility] Address 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
--- OUTSIDE RECORDS SUMMARY | 2025-05-10 10:22 | XMS_ITS | Clinical Summary ---
Author Organization [facility] Address [address] [place] [address] Care Team Providers Care Ironworker Wire Fence Erector Name Role Phone Valentina Johnson NP Primary Care Provider [phone] Allergies Active Allergy Reactions Criticality Noted Date [...] loss Assessment & Plan (10/20/2021 2:38 PM MUSIC THEORY PROFESSOR): Stable, not well controlled; patient has not [...] CDT): Patient is known limited calorie diet, 3918-2184 calories per day Patient started to walk [...] levels Assessment & Plan (10/20/2021 2:36 PM MUSIC THEORY PROFESSOR): Stable, patient does not tolerate statin start [...] 03/06/2018 Assessment & Plan (10/20/2021 2:37 PM MUSIC THEORY PROFESSOR): Stable, continue rizatriptan 10 mg as needed for severe headaches Thoracic spine pain 03/06/2018 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 Hypertension associated with diabetes 01/03/2018 Assessment & Plan (02/22/2022 4:50 PM CDT): Stable, well controlled; blood pressure at target today Continue losartan -hydrochlorothiazide 100-25 mg daily Assessment & Plan (10/20/2021 2:37 PM MUSIC THEORY PROFESSOR): Stable well controlled, blood pressure is at target today Continue losartan-hydrochlorothiazide 100-25 mg Assessment & Plan (07/26/2021 4:43 PM CDT): Stable, well controlled, blood pressure at target No episodes of hypotension Continue Hyzaar 100-25 mg Assessment & Plan (03/30/2021 12:52 PM CDT): Stable, well controlled, will continue Hyzaar 100-25 for management of blood pressure Assessment & Plan (01/03/2018 10:31 AM MUSIC THEORY PROFESSOR): Stable. Continue on current medical regimen GERD (gastroesophageal reflux disease) 8 Assessment & Plan (02/26/2022 10:32 AM CDT): Stable, well controlled; continue Prevacid 30 mg daily Assessment & Plan (07/26/2021 4:44 PM CDT): Stable, well controlled, continue Prevacid 30 mg daily Assessment & Plan (01/03/2018 11:49 AM MUSIC THEORY PROFESSOR): Continue IV pantoprazole for GI stress ulcer prophylaxis Hypothyroidism 01/03/2018 Assessment & Plan (02/26/2022 10:32 AM CDT): Stable, patient reports feeling tired for long duration, unclear if related to thyroid disease verses uncontrolled sleep apnea Will check TSH today Assessment & Plan (10/20/2021 2:37 PM MUSIC THEORY PROFESSOR): Stable, well controlled; continue levothyroxine 88 mcg daily Will check TSH every 6-12 months Assessment & Plan (03/30/2021 12:56 PM CDT): Stable, well controlled, last TSH at target Patient has no signs or symptoms of hypo or hyperthyroidism Will continue levothyroxine 88 mcg Assessment & Plan (01/03/2018 12:35 AM MUSIC THEORY PROFESSOR): Continue with levothyroxine Controlled type 2 diabetes zuri holguin without complication, without long-term current use of insulin 01/03/2018 Assessment & Plan (02/22/2022 4:51 PM CDT): Stable, well controlled; last A1c was at target; patient is not regularly check blood sugars Continue metformin a 1000 mg daily, check A1c today Assessment & Plan (10/20/2021 2:36 PM MUSIC THEORY PROFESSOR): Stable, well controlled, last A1c was 5.5; [...] 01/03/2018 Assessment & Plan (01/04/2018 6:18 PM MUSIC THEORY PROFESSOR): Continue to treat symptomatically. Patient prefers to remain on clear liquids for now Leg length discrepancy 04/12/2004 Acute diverticulitis Encounters Date Type Department Care Team Description 04/15/2025 2:09 PM CDT - 04/15/2025 11:59 PM CDT Hospital Encounter [facility] [address] [place] [address] Screening mammogram, encounter for Discharge Disposition: Discharge to home or self care from Last 3 Months Immunizations Immunization Administration Dates Next Due Influenza, Quadrivalent, Spl it, Intramuscular 07/25/2019,09/21/2016 Influenza, Quadrivalent, Spl it, Preservative Free, Intramuscular 08/16/2021,07/20/2020 Influenza, Trivalent, IM (MDV) 10/28/2015 Influenza, Unspecified 09/04/2021,2020(Deferred: Patient Refused),11/04/2019(Deferred: Patient Refused),07/30/2018,09/15/2017, 016,10/29/2015,09/21/2011 Surgical History Surgery Date Site/Laterality Comments ARM SURGERY Bilateral tennis elbow TOE SURGERY Right right great toe BREAST BIOPSY 11/04/2002 - 11/03/2003 Right neg Medical History Medical History Date Comments Hypertension Hypothyroidism Chronic back pain GERD (gastroesophageal reflux disease) Neuropathy Arthritis Diabetes mellitus (HCC) Glaucoma Migraine Family History Medical History Relation Name Comments Breast cancer Cousin Diabetes Father Heart disease Father Hypertension Mother Endometrial cancer Neg Hx Ovarian cancer Neg Hx Thyroid cancer Neg Hx Relation Name Status Comments Cousin Father Mother Social History Tobacco Use Types Packs/Day Years [...] on file Legal Sex Female 12:04 PM MUSIC THEORY PROFESSOR Gender Identity Not on file Sexual Orientation Not on file Obstetrics History Para Term AB IAB SAB Ectopic Multiple Livin g Live Births 0 0 0 0 0 0 0 0 0 0 0 Last Filed Vital Signs Vital Sign Reading Time Taken Comments Blood Pressure 149/102 11/08/2022 1:41 PM MUSIC THEORY PROFESSOR pt has not taken her daily BP meds yet Pulse 81 11/08/2022 1:41 PM MUSIC THEORY PROFESSOR Temperature 36.8 C (98.3 F) 06/28/2022 9:44 PM CDT Respiratory Rate 18 11/08/2022 1:41 PM MUSIC THEORY PROFESSOR Oxygen Saturation 100% 11/08/2022 1:4 1 PM MUSIC THEORY PROFESSOR Inhaled Oxygen Concentration - - Weight 89.8 kg (198 lb) 04/15/2025 2:16 PM CDT Height 160 cm (5' 3) 04/15/2025 2:16 PM CDT Body Mass Index 35.07 04/15/2025 2:16 PM CDT Plan of Treatment Health Maintenance Due Date Last Done Comments Cervical Cancer Screening 1960 Colon Cancer Screening-Colonoscopy 1960 Hepatitis C Screening 1960 Foot Exam 1960 DTaP/Tdap/Td Vaccine (1 - Tdap) 1971 Hepatitis B Screening 1978 Regular Well Visit/Exam 18-64 1978 Pneumococcal vaccine <65 (1 of 2 - PCV) 1979 Zoster Vaccine (1 of 2) 2010 Hemoglobin A1C 10/19/2022 04/19/2022, 10/04, 03/30/2021, Additional history exists Dilated Eye Exam 01/25/2023 01/25/2022 Depression Screening 02/22/2023 02/22/2022, 10/19/2021, 06/29/2021, Additional history exists Albumin Creatinine Ratio, Urine 04/19/2023 Lipid Panel 04/19/2023 04/19/2022, 03/05, 12/01/2020, Additional history exists eGFR 06/28/2023 06/28/2022, 04/04, 09/30/2021, Additional history exists Covid-19 Vaccine (2023-2 5 season) 2024 06/12/2022, 02/06/2021, 01/15/2021 Influenza Vaccine (Season Ended) 2025 09/04/2021, 08/16/2021, 07/20/2020, Additional history exists Breast Cancer Screening-Mammogram 04/15/2026 04/15/2025, 12/27/2023, 12/19/2022, Additional history exists Procedures Procedure Name Priority Date/Time Associated Diagnosis [...] eGFR 106 mL/min/1. 73 m2 NURA OKEEFE (JOSE E) Comment: Interpretive Data Reference Interval Normal >/= [...] LAB BLOOD ORDERABLES Final R esult NURA MALDONADO (JOSE E) 1 [facility] Department [place] [address] * Albumin Creatinine Ratio, Urine (04/19/2022 10:39 AM CDT) Albumin Ur 13.3 mg/L NURA Laura (JOSE E) Comment: Interpretive Data No reference range established. Current interpretive data was last revised 2019. Testing performed by: [facility], [address] [place]., [address] Creatinine Ur 121.1 mg/dL [facility] (JOSE E) Comment: Interpretive Data No reference range established. Current interpretive data was last revised 2019. Testing performed by: [facility], [address] [place] [address]., [id number] Albumin Creatinine Ratio, Ur 11 1 - 29 mg/g N[facility]A OKEEFE (JOSE E) Comment:Testing performed by : [facility], [address] [place] [address], [address] Urine 04/19/2022 10:3 9 AM CDT 04/19/2022 5:46 PM CDT us Jax Barbosa MD LAB URINE ORDERABLES Michelle l Result Performing Organization Address City/Va Hospital/ZIP Co de Phone Number [facility] (JOSE E) 1 [facility] [employer] [place] [address] * (ABNORMAL) Hemoglobin A1c (04/19/2022 10:39 AM CDT) [facility] Hgb A1C 6.2(H) 4.0 - 5.6 % N[facility]A OKEEFE (JOSE E) Comment:Testing performed by : [facility], [address] [place] [address]., [address] Estimated Average Glucose 131 mg/dL N[facility] OKEEFE (JOSE E) Comment: The ADA recommends reporting an estimated Average Glucose (eAG) with all Hemoglobin A1c results using the equation derived from a study of 507 normal and diabetic adults. Minority populations were underrepresented and children were not included. (Diabetes Care 31:2834-5015, 2008). The eAG is not equivalent to a fasting glucose. Testing performed by: [address] [address] Blood 04/19/2022 10:3 9 AM CDT 04/19/2022 5:46 PM CDT us Jax Barbosa MD LAB BLOOD ORDERABLES Michelle l Result Performing Organization Address City/Va Hospital/ZIP Co de Phone Number [facility] (JOSE E) 1 [facility] [place] [address] * (ABNORMAL) Lipid panel (04/19/2022 10:39 AM [...] last revised on 2018. Testing performed by: [address] [address] Triglycerides 105 <=149 mg/dL NURA OKEEFE (JOSE [...] Testing performed by: [facility], [address] [place] [address]., [address] HDL 56 >=40 mg/dL N[facility] OKEEFE (JOSE [...] Testing performed by: [facility], [address] [place] [address]., [address] LDL, calculated 155(H) <=129 mg/dL NURA OEKEFE (JOSE E) Comment: Interpretive Data Ages < [...] last revised on 2018. Testing performed by: [address] [address] Non-HDL Cholesterol 176 mg/dL N[facility] OKEEFE (JOSE [...] Testing performed by: [facility], [address] [place] [address]., [address] Chol/HDL ratio 4 KHARI OKEEFE (JOSE E) Comment:Testing performed by : [address] [address] Blood 04/19/2022 10:3 9 AM CDT 04/19/2022 5:46 PM CDT us Jax Barbosa MD LAB BLOOD ORDERABLES Michelle river Result NURA OKEEFE (JOSE E) 1 [facility] [place] [address] * Diabetic Eye Exam (01/25/2022) us Historical Provider MD HEALTH MAINTENANCE Final Result from Last 3 Months or Most Recently Relevant to Health Maintenance Insurance [address] [place] [address] [employer] [place] [facility] Jenn Rykert [facility] [address] [place] [address] [facility] ANTH ACCESS BLUE ACC CHOICE OOS Member Subscriber Plan / Payer (Ef fective 2022-Present) Name:Trent Henley Relation to Subscriber:Self Name:Trent Henley Payer ID:[id number] ([facility]) Type:[employer] Address: [address] TRADITIONAL [address] [place] [address] BLUE ACCESS [place] [facility] ACCESS CHOICE Advance Directives For more information, please contact: [phone] * Full Code (Latest Code Status on File) Date Activated Date Inactivated Comments 01/03/2018 12:21 AM 01/05/2018 4:28 PM * Full Code Date Activated Date Inactivated Comments 01/02/2018 3:24 PM 01/03/2018 12:21 AM Care Teams Ironworker Wire Fence Erector Relationship Specialty Start Date End Date Valentina Johnson NP [address] [place] [address] PCP - General Nurse Practitioner 06/17/24
[2025-05-10 10:29] LABS: Hematocrit 38.9 % (37.0-47.0); Hemoglobin 13.2 g/dL (12.0-15.0); Immature Granulocyte Percent A 0.2 % (0-0.5); Lymphocytes Absolute Auto 1.07 K/mm3 (0.9-3.2); Mean Corpuscular HGB Conc 33.9 g/dl (32-36); Mean Corpuscular Hemoglobin 30.6 pg (26-34); Mean Corpuscular Volume 90.3 fl (80-100); Nucleated Red Blood Cells Absolute Auto 0.000 K/mm3 (0.0-0.012); Nucleated Red Blood Cells Perc 0.0 % (0.0-0.2); Platelet Count Result 263 k/mm3 (150-375); Red Blood Count 4.31 M/mm3 (4.2-5.4); White Blood Count 4.7 K/mm3 (4.5-10.0)
[2025-05-10 10:41] LABS: Anion Gap 9 mmol/L (4-12); Blood Urea Nitrogen 11 mg/dL (7-17); Carbon Dioxide 27 mmol/L (22-30); Chloride 98 mmol/L (98-107); Estimated CRCL calculation 85 ml/min; Estimated Glomerular Filt Rate > 60; Glucose 118 mg/dL (65-110); Potassium 3.8 mmol/L (3.4-5.0); Sodium 134 mmol/L (137-145)
[2025-05-10 10:42] LABS: Alanine Aminotransferase 25 U/L (6-35); Albumin Level 4.4 g/dL (3.5-5.1); Alkaline Phosphatase 77 U/L (38-126); Aspartate Amino Transferase 32 U/L (14-36); Bilirubin,Total 0.4 mg/dL (0.2-1.3); Calcium 9.9 mg/dL (8.4-10.2); Lipase 44 U/L (23-300); Total Protein 7.8 g/dL (6.3-8.2)
[2025-05-10 10:47] LABS: INR 0.9; Prothrombin Time 12.3 Seconds (11.1-14.7)
[2025-05-10 10:48] LABS: Partial Thromboplastin Time 26.4 Seconds (22.3-36.8)
[2025-05-10 10:53] LABS: Troponin I < 0.012 ng/mL (0.000-0.034)
--- OUTSIDE RECORDS SUMMARY | 2025-05-10 11:35 | XMS_ITS | Encounter Summary ---
Author Organization [facility] Address [address] [facility] [place] [address] Care Team Providers Care Homeowner Association Manager Name Role Phone Avinash Chavez MD Primary Care Provider [phone] Encounter Details Date Type Department Care Team (Late st Contact Info) Description 10/10/2010 [facility] Outpatient Visit [facility] - Family Medicine [id number] [place] [address] Mariusz Dhaliwal, [address] [place] [address] Social History Tobacco Use Types Packs/Day Years Used Date Smoking Tobacco: Never Alcohol Use Standard Drinks/Week Comments Yes 0 (1 standard drink = 0.6 oz pur e alcohol) Comments No Sex and Gender Information Value Date Recorded Sex Assigned at Not on file Legal Sex Female 4:31 AM HOUSE PLAYER Gender Identity Not on file Sexual Orientation Not on file documented as of this encounter Plan of Treatment Not on file documented as of this encounter Visit Diagnoses Not on filedocumented in this encounter Care Teams Homeowner Association Manager Relationship Specialty Start Date End Date Avinash Chavez MD [address] [place] [phone] PCP - General Family Medicine 06/12/23 documented as of this encounter
--- OUTSIDE RECORDS SUMMARY | 2025-05-10 11:35 | XMS_ITS | Encounter Summary ---
Author Organization [facility] Address [address] [place] [address] Care Team Providers Care Concrete Mixer Loader Truck Mounted Name Role Phone Unavailable Primary Care Provider [...] on file Legal Sex Female 5:20 AM LEAD APPLICATION ARCHITECT Gender Identity Not on file Sexual Orientation Not on file documented as of this encounter Plan of Treatment Not on file documented as of this encounter Visit Diagnoses Diagnosis Radiological examination, not elsewhere classified- Primary documented in this encounter
--- OUTSIDE RECORDS SUMMARY | 2025-05-10 11:35 | XMS_ITS | Clinical Summary ---
Author Organization [facility] Address [address] [place] [address] Care Team Providers Care Regional Sales Associate Name Role Phone Unavailable Primary Care Provider [...] on file Legal Sex Female 5:20 AM INTERNATIONAL RECRUITER Gender Identity Not on file Sexual Orientation [...] 09/08/2028 09/08/2018 Colorectal Cancer Screening 09/08/2028 Insurance [facility] Powervation [facility] [employer] CHOICE
--- OUTSIDE RECORDS SUMMARY | 2025-05-10 11:35 | XMS_ITS | Encounter Summary ---
Author Organization [employer] Address [address] [place] [address] Care Team Providers Care Mud Analysis Operator Name Role Phone Unavailable Primary Care Provider Unavailabl e Encounter Details Date Type Department Care Team (Late st Contact Info) Description 10/09/2000 Outpatient Historical [facility] DEPT Sohail Adair MD [address] [facility] [address] [place] [address] Disturbance of skin sensation (Primary Dx) Social History Tobacco Use Types Packs/Day Years Used Date Smoking Tobacco: Never Assessed Comments Unknown Sex and Gender Information Value Date Recorded Sex Assigned at Not on file Legal Sex Female 5:20 AM BRICK MAKER Gender Identity Not on file Sexual Orientation Not on file documented as of this encounter Plan of Treatment Not on file documented as of this encounter Visit Diagnoses Diagnosis Disturbance of skin sensation- Primary documented in this encounter
--- OUTSIDE RECORDS SUMMARY | 2025-05-10 11:35 | XMS_ITS | Clinical Summary ---
Author Organization [facility] [employer] Address [address] [place] [address] Care Team Providers Care Blanker Operator Name Role Phone Avinash Chavez MD Primary Care Provider [phone] Source Comments [facility] [employer],non-owned Affiliates and Associated Physician Practices is amultiple site organization consisting of ambulatory clinics and hospital sitesin [place], [place], [place] and [place]. This disclosure is being madepursuant to the Care Everywhere program and may not contain all information available regarding this patient. Last updated 18.[facility] [employer] Allergies Active Allergy Reactions Criticality Noted Date [...] 2 Active Cholecalciferol (vitamin D3) 1.25 MG (45910 UT) capsule Take 1 (one) capsule by [...] - ENT [address], [facility] [address] [place] [address] Maribell Cantu RN Follow-up (Voice after injection) 02/26/2025 11:15 AM CDT Procedure visit [facility] - ENT [address], [place] [address] [place] [address] Twan Will MD Laryngeal spasm [...] on file Legal Sex Female 4:31 AM PERSONAL SERVICE REPRESENTATIVE Gender Identity Not on file Sexual Orientation Not on file Last Filed Vital Signs Vital Sign Reading Time Taken Comments Blood Pressure 121/81 07/05/2022 8:32 AM CDT Pulse 87 07/05/2022 8:32 AM CDT Temperature 36.7 C (98.1 F) 07/05/2022 8:32 AM CDT Respiratory Rate 18 09/08/2018 12:19 PM PERSONAL SERVICE REPRESENTATIVE Oxygen Saturation 96% 09/08/2018 12:19 PM PERSONAL SERVICE REPRESENTATIVE Inhaled Oxygen Concentration - - Weight 87.5 kg (193 lb) 12/04/2024 11:19 AM PERSONAL SERVICE REPRESENTATIVE reported Height 160 cm (5' 3) 12/04/2024 11:19 AM PERSONAL SERVICE REPRESENTATIVE re ported Body Mass Index 34.19 12/04/2024 11:19 AM PERSONAL SERVICE REPRESENTATIVE Plan of Treatment Health Maintenance Due Date [...] Where can I go for more information? [employer] National Center: http://www.americanheart.org 1. In the top header, click C onditions . 2. In the top header, click h igh blood pressure. 3. For a printable blood pressure tracker, scroll toward the bottom of the page to Related Tools, and click H BP Trackers. 4-918-HUZ-USA-1 or ( ) National Heart, Lung and Blood [place]: http://www.nhlbi.nih.gov/health/infoctr/index.htm Procedures Procedure Name Priority Date/Time Associated Diagnosis Comments CA CHEMODENER MUSCLE LARYNX EMG Routine 02/26/2025 11:18 AM CDT Laryngeal spasm Spasmodic dysphonia Hoarseness COMPREHENSIVE METABOLIC PANEL Routine 12/01/2020 2:28 PM PERSONAL SERVICE REPRESENTATIVE Hyperinsulinism Hyperlipidemia, unspecified hyperlipidemia type Dysmetabolic syndrome X Hypothyroidism due to acquired atrophy of thyroid Essential hypertension Neuropathy LIPID PROFILE Routine 12/01/2020 2:28 PM PERSONAL SERVICE REPRESENTATIVE Hyperinsulinism Hyperlipidemia, unspecified hyperlipidemia type Dysmetabolic syndrome X Hypothyroidism due to acquired atrophy of thyroid Essential hypertension Neuropathy ENDOSCOPY, COLON, SCREENING Routine 09/08/2018 10:55 AM PERSONAL SERVICE REPRESENTATIVE Screen for colon cancer HEPATITIS C ANTIBODY 12/31/2013 11:53 AM PERSONAL SERVICE REPRESENTATIVE MAMMO BILATERAL DIAGNOSTIC Routine 05/28/2012 Enlarged lymph nodes from Last 3 Months or Most Recently Relevant to Health Maintenance Results * CA CHEMODENER MUSCLE LARYNX EMG (02/26/2025 11:18 AM [...] supply source Bot Type A Lot # [id number] Exp. Date: 03/2027 PROCEDURE NOTE: (Adductor spasmodic [...] * COMPREHENSIVE METABOLIC PANEL (12/01/2020 2:28 PM PERSONAL SERVICE REPRESENTATIVE) Glucose 95 70 - 105 mg/dL [facility] [...] BLOOD SPECIMEN / Unknown 12/01/2020 2:28 PM PERSONAL SERVICE REPRESENTATIVE 12/01/2020 Narrative Resulting Agency Comment Lab Testing performed at: [address] Precious LEE [id number] Mariusz Dhaliwal DO LAB - CHEMISTRY ORDERABLES Final Result Performing Organization Address City/[facility]/ZIP Co de Phone Number [facility] INSURANCE BILL [address] [place] [address] * (ABNORMAL) LIPID PROFILE (12/01/2020 2:28 PM PERSONAL SERVICE REPRESENTATIVE) Cholesterol 243(H) <200 mg/dL [facility] INSURANCE BILL Triglycerides 248(H) <150 mg/dL [facility] INSURANCE BILL HDL Cholesterol 62 >40 mg/dL [facility] INSURANCE BILL VLDL Calculated 50(H) <=30 mg/dL [facility] INSURANCE BILL LDL Calculated 131(H) <130 mg/dL [facility] INSURANCE BILL Blood BLOOD SPECIMEN / Unknown 12/01/2020 2:28 PM PERSONAL SERVICE REPRESENTATIVE 12/01/2020 Narrative Resulting Agency Comment Lab Testing performed at: [place] [address] [place] [id number] [place] Mariusz Dhaliwal DO LAB - CHEMISTRY ORDERABLES Final Result [facility] INSURANCE BILL [address] [place] [address] * ENDOSCOPY, COLON, SCREENING (09/08/2018 10:55 AM PERSONAL SERVICE REPRESENTATIVE) Report Endoscopy POC _ Patient Name: Trent [...] colon K64.8, Other hemorrhoids CPT copyright 2015 [employer]. All rights reserved. The codes documented in this report are preliminary and upon vocational evaluator review may be revised to meet current compliance requirements. Dr. Jae Griffiths MD ___ Jae Griffiths MD 09/08/2018 11:48:23 AM This report has been signed electronically. Number of Addenda: 0 Note Initiated On: 09/08/2018 10:55 AM [facility] ENDOSCOPY 09/08/2018 10:5 5 AM PERSONAL SERVICE REPRESENTATIVE Jae Griffiths MD GI PROCEDURE ORDERABLES Rosalino yeimi Result - Final Performing Organization Address [facility] Co de Phone Number [facility] [place] [address] * HEPATITIS C ANTIBODY (12/31/2013 11:53 AM PERSONAL SERVICE REPRESENTATIVE) Hepatitis C Antibody NON-REACTI VE NON-REACT LAZ [facility] Signal to Cut-Off 0.02 <1.00 [facility] Comment: Test Performed at: [facility] [address] [place] [address] MILIND YANG DO,MPH 12/31/2013 11:5 3 AM PERSONAL SERVICE REPRESENTATIVE 12/31/2013 11:55 AM PERSONAL SERVICE REPRESENTATIVE Mariusz Dhaliwal DO LAB - CHEMISTRY ORDERABLES Final Result Performing Organization Address [facility] de Phone Number [facility] [address] [place] [address] * MAMMO BILATERAL DIAGNOSTIC (05/28/2012) Anatomical Region Laterality Modality Breast Other Mariusz Dhaliwal DO MAMMO ORDERABLES Final Result from Last 3 Months or Most Recently Relevant to Health Maintenance Insurance [employer] [address] [place] [address] [facility] [place] [address] Care Teams Blanker Operator Relationship Specialty Start Date End Date Avinash Chavez MD [address] [place] [phone] PCP - General Family Medicine 06/12/23
--- OUTSIDE RECORDS SUMMARY | 2025-05-10 11:35 | XMS_ITS | Encounter Summary ---
Author Organization [facility] Address [address] [place] [address] Care Team Providers Care Special Needs Child Caregiver Name Role Phone Unavailable Primary Care Provider Unavailabl e Encounter Details Date Type Department Care Team (Late st Contact Info) Description 08/16/1998 Outpatient Historical [facility] Primary Care - [address] [place] [address] Gabriel Partida DO Social History Tobacco Use Types Packs/Day Years Used Date Smoking Tobacco: Never Assessed Comments Unknown Sex and Gender Information Value Date Recorded Sex Assigned at Not on file Legal Sex Female 5:20 AM PLAY READER Gender Identity Not on file Sexual Orientation Not on file documented as of this encounter Plan of Treatment Not on file documented as of this encounter Visit Diagnoses Not on filedocumented in this encounter
--- OUTSIDE RECORDS SUMMARY | 2025-05-10 11:35 | XMS_ITS | Referral Summary ---
Author Organization [facility] Address [address] [place] [id number] Care Team Providers Care Pediatrician Active Practice Name Role Phone Valentina Johnson NP Primary Care Provider [phone] Encounters Date Type Department Care Team Description 04/15/2025 2:09 PM CDT - 04/15/2025 11:59 PM CDT Hospital Encounter [facility] [address] [place] [id number] Screening mammogram, encounter for Discharge Disposition: Discharge [...] loss Assessment & Plan (10/20/2021 2:38 PM TELECOMMUNICATIONS PROJECT MANAGER): Stable, not well controlled; patient has not [...] CDT): Patient is known limited calorie diet, 1982-9935 calories per day Patient started to walk [...] levels Assessment & Plan (10/20/2021 2:36 PM TELECOMMUNICATIONS PROJECT MANAGER): Stable, patient does not tolerate statin start [...] 03/06/2018 Assessment & Plan (10/20/2021 2:37 PM TELECOMMUNICATIONS PROJECT MANAGER): Stable, continue rizatriptan 10 mg as needed for severe headaches Thoracic spine pain 03/06/2018 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 Hypertension associated with diabetes 01/03/2018 Assessment & Plan (02/22/2022 4:50 PM CDT): Stable, well controlled; blood pressure at target today Continue losartan -hydrochlorothiazide 100-25 mg daily Assessment & Plan (10/20/2021 2:37 PM TELECOMMUNICATIONS PROJECT MANAGER): Stable well controlled, blood pressure is at target today Continue losartan-hydrochlorothiazide 100-25 mg Assessment & Plan (07/26/2021 4:43 PM CDT): Stable, well controlled, blood pressure at target No episodes of hypotension Continue Hyzaar 100-25 mg Assessment & Plan (03/30/2021 12:52 PM CDT): Stable, well controlled, will continue Hyzaar 100-25 for management of blood pressure Assessment & Plan (01/03/2018 10:31 AM TELECOMMUNICATIONS PROJECT MANAGER): Stable. Continue on current medical regimen GERD (gastroesophageal reflux disease) 8 Assessment & Plan (02/26/2022 10:32 AM CDT): Stable, well controlled; continue Prevacid 30 mg daily Assessment & Plan (07/26/2021 4:44 PM CDT): Stable, well controlled, continue Prevacid 30 mg daily Assessment & Plan (01/03/2018 11:49 AM TELECOMMUNICATIONS PROJECT MANAGER): Continue IV pantoprazole for GI stress ulcer prophylaxis Hypothyroidism 01/03/2018 Assessment & Plan (02/26/2022 10:32 AM CDT): Stable, patient reports feeling tired for long duration, unclear if related to thyroid disease verses uncontrolled sleep apnea Will check TSH today Assessment & Plan (10/20/2021 2:37 PM TELECOMMUNICATIONS PROJECT MANAGER): Stable, well controlled; continue levothyroxine 88 mcg daily Will check TSH every 6-12 months Assessment & Plan (03/30/2021 12:56 PM CDT): Stable, well controlled, last TSH at target Patient has no signs or symptoms of hypo or hyperthyroidism Will continue levothyroxine 88 mcg Assessment & Plan (01/03/2018 12:35 AM TELECOMMUNICATIONS PROJECT MANAGER): Continue with levothyroxine Controlled type 2 diabetes m ellitus without complication, without long-term current use of insulin 01/03/2018 Assessment & Plan (02/22/2022 4:51 PM CDT): Stable, well controlled; last A1c was at target; patient is not regularly check blood sugars Continue metformin a 1000 mg daily, check A1c today Assessment & Plan (10/20/2021 2:36 PM TELECOMMUNICATIONS PROJECT MANAGER): Stable, well controlled, last A1c was 5.5; [...] 01/03/2018 Assessment & Plan (01/04/2018 6:18 PM TELECOMMUNICATIONS PROJECT MANAGER): Continue to treat symptomatically. Patient prefers to [...] on file Legal Sex Female 12:04 PM TELECOMMUNICATIONS PROJECT MANAGER Gender Identity Not on file Sexual Orientation Not on file Last Filed Vital Signs Vital Sign Reading Time Taken Comments Blood Pressure 149/102 11/08/2022 1:41 PM TELECOMMUNICATIONS PROJECT MANAGER pt has not taken her daily BP meds yet Pulse 81 11/08/2022 1:41 PM TELECOMMUNICATIONS PROJECT MANAGER Temperature 36.8 C (98.3 F) 06/28/2022 9:44 PM CDT Respiratory Rate 18 11/08/2022 1:41 PM TELECOMMUNICATIONS PROJECT MANAGER Oxygen Saturation 100% 11/08/2022 1:4 1 PM TELECOMMUNICATIONS PROJECT MANAGER Inhaled Oxygen Concentration - - Weight 89.8 [...] eGFR 106 mL/min/1. 73 m2 [facility] ([place]) Comment: Interpretive Data Reference Interval Normal >/= [...] R esult [facility] ([place]) 1 [facility] [place] [address] * Albumin Creatinine Ratio, Urine (04/19/2022 10:39 AM CDT) Albumin Ur 13.3 mg/L [facility] ([place]) Comment: Interpretive Data No reference range established. Current interpretive data was last revised 2019. Testing performed by: [facility], [address] [place] [address], [place]., [address] Creatinine Ur 121.1 mg/dL [facility] ([place]) Comment: Interpretive Data No reference range established. Current interpretive data was last revised 2019. Testing performed by: [facility], [address] [place] [address]., [address] Albumin Creatinine Ratio, Ur 11 1 - 29 mg/g [facility] ([place]) Comment:Testing performed by : [facility], [address] [place] [address]., [address] Urine 04/19/2022 10:3 9 AM CDT 04/19/2022 5:46 PM CDT Jax Barbosa MD LAB URINE ORDERABLES Michelle l Result Performing Organization Address City/[facility]/ZIP Co de Phone Number [facility] ([place]) 1 [facility] [place] [address] * (ABNORMAL) Hemoglobin A1c (04/19/2022 10:39 AM CDT) Hgb A1C 6.2(H) 4.0 - 5.6 % [facility] ([place]) Comment:Testing performed by : [facility], [address] [place] [address]., [id number] Estimated Average Glucose 131 mg/dL [facility] ([place]) Comment: The ADA recommends reporting an estimated Average Glucose (eAG) with all Hemoglobin A1c results using the equation derived from a study of 507 normal and diabetic adults. Minority populations were underrepresented and children were not included. (Diabetes Care 31:4517-9886, 2008). The eAG is not equivalent to a fasting glucose. Testing performed by: [facility], [address] [place] [address]., [address] Blood 04/19/2022 10:3 9 AM CDT 04/19/2022 5:46 PM CDT us Jax Barbosa MD LAB BLOOD ORDERABLES Michelle l Result Performing Organization Address City/[facility]/ZIP Co de Phone Number [facility] ([place]) 1 [facility] [place] [address] * (ABNORMAL) Lipid panel (04/19/2022 10:39 AM [...] last revised on 2018. Testing performed by: [address] [address] Triglycerides 105 <=149 mg/dL [facility] ([place] [...] last revised on 2018. Testing performed by: [facility], [address] [place] [address]., [address] HDL 56 >=40 mg/dL [facility] ([place] [...] last revised on 2018. Testing performed by: [facility], [address] [place] [address]., [address] LDL, calculated 155(H) <=129 mg/dL N[facility] [...] last revised on 2018. Testing performed by: [facility], [address] [place] [address]., [address] Non-HDL Cholesterol 176 mg/dL [facility] ([place] [...] last revised on 2018. Testing performed by: [facility], [address] [place] [address]., [address] Chol/HDL ratio 4 [facility] ([place]) Comment:Testing performed by : [address] [address] Blood 04/19/2022 10:3 9 AM CDT 04/19/2022 5:46 PM CDT us Jax Barbosa MD LAB BLOOD ORDERABLES Michelle river Result [facility]A [facility] ([place]) 1 [facility] [place] [address] * Diabetic Eye Exam (01/25/2022) us Historical Provider MD HEALTH MAINTENANCE Final Result from Last 3 Months or Most Recently Relevant to Health Maintenance Insurance [address] [place] [address] [employer] [facility] [employer] [facility] [address] [place] [address] [facility] ANTHEM ACCESS BLUE ACC CHOICE OOS Member Subscriber Plan / Payer ( fective 2022-Present) Name:MelissakevinTrent Lore Relation to Subscriber:Self Name:MelissakevinTrent Lore Payer ID:[id number] ([facility]) Type:[employer] Address: [address] TRADITIONAL [address] [place] [address] BLUE [place]ESS [place] ANTHEM ACCESS CHOICE Advance Directives For more information, please contact: [phone] * Full Code (Latest Code Status on File) Date Activated Date Inactivated Comments 01/03/2018 12:21 AM 01/05/2018 4:28 PM * Full Code Date Activated Date Inactivated Comments 01/02/2018 3:24 PM 01/03/2018 12:21 AM Care Teams Pediatrician Active Practice Relationship Specialty Start Date End Date Valentina Johnson NP [address] [place] [id number] PCP - General Nurse Practitioner 06/17/24
--- OUTSIDE RECORDS SUMMARY | 2025-05-10 11:35 | XMS_ITS | Clinical Summary ---
Author Organization [facility] Address [address] [place] [phone] Care Team Providers Care Molding Machine Operator Helper Name Role Phone Valentina Johnson NP Primary Care Provider [phone] Allergies Active Allergy Reactions Criticality Noted Date [...] loss Assessment & Plan (10/20/2021 2:38 PM ABRASIVE WHEEL MOLDER): Stable, not well controlled; patient has not [...] CDT): Patient is known limited calorie diet, 6910-8340 calories per day Patient started to walk [...] levels Assessment & Plan (10/20/2021 2:36 PM ABRASIVE WHEEL MOLDER): Stable, patient does not tolerate statin start [...] 03/06/2018 Assessment & Plan (10/20/2021 2:37 PM ABRASIVE WHEEL MOLDER): Stable, continue rizatriptan 10 mg as needed for severe headaches Thoracic spine pain 03/06/2018 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 Hypertension associated with diabetes 01/03/2018 Assessment & Plan (02/22/2022 4:50 PM CDT): Stable, well controlled; blood pressure at target today Continue losartan -hydrochlorothiazide 100-25 mg daily Assessment & Plan (10/20/2021 2:37 PM ABRASIVE WHEEL MOLDER): Stable well controlled, blood pressure is at target today Continue losartan-hydrochlorothiazide 100-25 mg Assessment & Plan (07/26/2021 4:43 PM CDT): Stable, well controlled, blood pressure at target No episodes of hypotension Continue Hyzaar 100-25 mg Assessment & Plan (03/30/2021 12:52 PM CDT): Stable, well controlled, will continue Hyzaar 100-25 for management of blood pressure Assessment & Plan (01/03/2018 10:31 AM ABRASIVE WHEEL MOLDER): Stable. Continue on current medical regimen GERD (gastroesophageal reflux disease) 8 Assessment & Plan (02/26/2022 10:32 AM CDT): Stable, well controlled; continue Prevacid 30 mg daily Assessment & Plan (07/26/2021 4:44 PM CDT): Stable, well controlled, continue Prevacid 30 mg daily Assessment & Plan (01/03/2018 11:49 AM ABRASIVE WHEEL MOLDER): Continue IV pantoprazole for GI stress ulcer prophylaxis Hypothyroidism 01/03/2018 Assessment & Plan (02/26/2022 10:32 AM CDT): Stable, patient reports feeling tired for long duration, unclear if related to thyroid disease verses uncontrolled sleep apnea Will check TSH today Assessment & Plan (10/20/2021 2:37 PM ABRASIVE WHEEL MOLDER): Stable, well controlled; continue levothyroxine 88 mcg daily Will check TSH every 6-12 months Assessment & Plan (03/30/2021 12:56 PM CDT): Stable, well controlled, last TSH at target Patient has no signs or symptoms of hypo or hyperthyroidism Will continue levothyroxine 88 mcg Assessment & Plan (01/03/2018 12:35 AM ABRASIVE WHEEL MOLDER): Continue with levothyroxine Controlled type 2 diabetes zuri holguin without complication, without long-term current use of insulin 01/03/2018 Assessment & Plan (02/22/2022 4:51 PM CDT): Stable, well controlled; last A1c was at target; patient is not regularly check blood sugars Continue metformin a 1000 mg daily, check A1c today Assessment & Plan (10/20/2021 2:36 PM ABRASIVE WHEEL MOLDER): Stable, well controlled, last A1c was 5.5; [...] 01/03/2018 Assessment & Plan (01/04/2018 6:18 PM ABRASIVE WHEEL MOLDER): Continue to treat symptomatically. Patient prefers to remain on clear liquids for now Leg length discrepancy 04/12/2004 Acute diverticulitis Encounters Date Type Department Care Team Description 04/15/2025 2:09 PM CDT - 04/15/2025 11:59 PM CDT Hospital Encounter [facility] [address] [place] [address] Screening mammogram, encounter for Discharge Disposition: Discharge [...] on file Legal Sex Female 12:04 PM ABRASIVE WHEEL MOLDER Gender Identity Not on file Sexual Orientation Not on file Obstetrics History Para Term AB IAB SAB Ectopic Multiple Livin g Live Births 0 0 0 0 0 0 0 0 0 0 0 Last Filed Vital Signs Vital Sign Reading Time Taken Comments Blood Pressure 149/102 11/08/2022 1:41 PM ABRASIVE WHEEL MOLDER pt has not taken her daily BP meds yet Pulse 81 11/08/2022 1:41 PM ABRASIVE WHEEL MOLDER Temperature 36.8 C (98.3 F) 06/28/2022 9:44 PM CDT Respiratory Rate 18 11/08/2022 1:41 PM ABRASIVE WHEEL MOLDER Oxygen Saturation 100% 11/08/2022 1:4 1 PM ABRASIVE WHEEL MOLDER Inhaled Oxygen Concentration - - Weight 89.8 [...] R esult NURA MALDONADO ([place]) 1 [facility] Department [place] [address] * Albumin Creatinine Ratio, Urine (04/19/2022 10:39 AM CDT) Albumin Ur 13.3 mg/L NURA [facility] ([place]) Comment: Interpretive Data No reference range established. Current interpretive data was last revised 2019. Testing performed by: [facility], [address] [place]., [address] Creatinine Ur 121.1 mg/dL [facility] ([place]) Comment: Interpretive Data No reference range established. Current interpretive data was last revised 2019. Testing performed by: [facility], [address] [place] [address]., [address] Albumin Creatinine Ratio, Ur 11 1 - 29 mg/g [facility] ([place]) Comment:Testing performed by : [facility], [address] [place] [address], [id number] Urine 04/19/2022 10:3 9 AM CDT 04/19/2022 5:46 PM CDT us Jax Barbosa MD LAB URINE ORDERABLES Michelle l Result Performing Organization Address City/[facility]/ZIP Co de Phone Number [facility] ([place]) 1 [facility] [place] [address] * (ABNORMAL) Hemoglobin A1c (04/19/2022 10:39 AM CDT) [facility] Hgb A1C 6.2(H) 4.0 - 5.6 % [facility] ([place]) Comment:Testing performed by : [facility], [address] [place] [address]., [id number] Estimated Average Glucose 131 mg/dL [facility] ([place]) Comment: The ADA recommends reporting an estimated Average Glucose (eAG) with all Hemoglobin A1c results using the equation derived from a study of 507 normal and diabetic adults. Minority populations were underrepresented and children were not included. (Diabetes Care 31:0140-4666, 2008). The eAG is not equivalent to a fasting glucose. Testing performed by: [address] [address] Blood 04/19/2022 10:3 9 AM CDT 04/19/2022 5:46 PM CDT us Jax Barbosa MD LAB BLOOD ORDERABLES Michelle l Result Performing Organization Address City/[facility]/ZIP Co de Phone Number [facility] ([place]) 1 [facility] [place] [address] * (ABNORMAL) Lipid panel (04/19/2022 10:39 AM [...] last revised on 2018. Testing performed by: [address] [address] Triglycerides 105 <=149 mg/dL [facility] (JOSE [...] last revised on 2018. Testing performed by: [facility], [address] [place] [address]., [address] HDL 56 >=40 mg/dL [facility] (JOSE [...] last revised on 2018. Testing performed by: [facility], [address] [place] [address]., [address] LDL, calculated 155(H) <=129 mg/dL N[facility] [...] last revised on 2018. Testing performed by: [address] [address] Non-HDL Cholesterol 176 mg/dL [facility] (JOSE [...] last revised on 2018. Testing performed by: [facility], [address] [place] [address]., [address] Chol/HDL ratio 4 [facility] ([place]) Comment:Testing performed by : [address] [address] Blood 04/19/2022 10:3 9 AM CDT 04/19/2022 5:46 PM CDT us Jax Barbosa MD LAB BLOOD ORDERABLES Michelle river Result [facility] ([place]) 1 [facility] [place] [address] * Diabetic Eye Exam (01/25/2022) us Historical Provider MD HEALTH MAINTENANCE Final Result from Last 3 Months or Most Recently Relevant to Health Maintenance Insurance [address] [place] [address] [employer] [place] [facility] [employer] [facility] [address] [place] [address] [facility] ANTH ACCESS BLUE ACC CHOICE OOS Member Subscriber Plan / Payer (Ef fective 2022-Present) Name:Trent Henley Relation to Subscriber:Self Name:Trent Henley Payer ID:[id number] ([facility]) Type:[employer] Address: [address] TRADITIONAL [address] [place] [address] BLUE ACCESS [place] [facility] ACCESS CHOICE Advance Directives For more information, please contact: [phone] * Full Code (Latest Code Status on File) Date Activated Date Inactivated Comments 01/03/2018 12:21 AM 01/05/2018 4:28 PM * Full Code Date Activated Date Inactivated Comments 01/02/2018 3:24 PM 01/03/2018 12:21 AM Care Teams Molding Machine Operator Helper Relationship Specialty Start Date End Date Valentina Johnson NP [address] [place] [address] PCP - General Nurse Practitioner 06/17/24
--- OUTSIDE RECORDS SUMMARY | 2025-05-10 11:35 | XMS_ITS | Encounter Summary ---
Author Organization [employer] Address [address] [place] [address] Care Team Providers Care Laborer Wharf Name Role Phone Unavailable Primary Care Provider Unavailabl e Encounter Details Date Type Department Care Team (Latest Contact Info) Description 03/08/2005 Outpatient [facility] [address] [facility] [place] [address] [place] [address] [facility] [address] [place] [address] BRACHIAL NEURITIS NOS (Primary Dx) Social History Tobacco Use Types Packs/Day Years Used Date Smoking Tobacco: Never Assessed Comments Unknown Sex and Gender Information Value Date Recorded Sex Assigned at Not on file Legal Sex Female 5:20 AM STOCK AND STATION AGENT Gender Identity Not on file Sexual Orientation Not on file documented as of this encounter Plan of Treatment Not on file documented as of this encounter Visit Diagnoses Diagnosis Brachial neuritis or radiculitis NOS- Primary Brachial neuritis or radiculitis nos documented in this encounter
--- NOTE | 2025-05-10 11:41 | ED_ITS ---
HPI - Chest Pain General Chief Complaint: Chest Pain Stated Complaint: chest pain Time Seen by Provider: 05/10/25 11:18 Source: patient Mode of arrival: ambulatory Limitations: no limitations History of Present Illness HPI narrative: This is a 64 year old female that presents to the ER for left sided chest pain. Ongoing since earlier this morning. Reports the pain is sharp, intermittent. No alleviating or exacerbating factors. The pain radiates to her left shoulder blade. Denies fevers, cough, vomiting, shortness of breath. Related Data Home Medications ?Medication ?Instructions ?Recorded ?Confirmed ?Last Taken ?Type timolol 0.5 % eye drops 1 drp EACH EYE Q12H 08/09/22 02/01/25 04/04/23 20:00 History latanoprost 0.005 % eye drops, 1 drp EACH EYE QPM 10/18/22 02/01/25 04/04/23 History emulsion Allergies Allergy/AdvReac Type Severity Reaction Status Date / Time azithromycin AdvReac Severe dizzy Verified 05/10/25 11:56 statin AdvReac Severe pain Uncoded 05/10/25 11:56 Review of Systems 2 Review of Systems: All systems reviewed & are unremarkable except as noted in HPI and below PMFSH Past Medical History Medical History Peripheral neuropathy Left lower quadrant abdominal pain Acute cholecystitis Diarrhea Abdominal pain Hypertension YAJAIRA (obstructive sleep apnea) Glaucoma Osteoporosis Arthritis Asthma Hypothyroidism Surgical History Surgical History Hx laparoscopic cholecystectomy 04/05/23 History of surgery on arm Left and Right for tendonitis History of toe surgery Right foot Family History Family History Father Diabetes mellitus Hypertension Heart disease Cancer Mother Hypertension Thyroid disorder Sibling Alcohol abuse Asthma Diabetes mellitus Depression Social History Social History Smoking status: Never smoker Second hand tobacco smoke exposure: No Alcohol intake: never Substance use: never Substance use type: does not use Do You Feel Safe in your Home?: Yes Lack of Transportation: No Lack of Food: Never True Current Housing: I Have Housing Concerned About Future Housing: No Difficulty Paying Gas/Electric Bills: No Difficulty Paying for Meds: No Currently Unemployed: No Education: High School Diploma/GED Difficulty w/ Childcare or Family Care: No Living arrangements: with family Occupation/Education: occupation Additional occupation/education comments: [employer] Gender identity (if verbalized by the patient): Female Spiritual care concerns: No Agree to blood products: Yes Exam 2 Narrative: GENERAL: Well-appearing, well-nourished, and in no acute distress. HEAD: Normocephalic, atraumatic. EYES: EOMI. CHEST: Clear to auscultation. No respiratory distress. No wheezes rales or rhonchi HEART: Regular rate and rhythm. No murmur heard. Normal peripheral pulses. ABDOMEN: Soft, nontender, nondistended, normal active bowel sounds. EXTREMITIES: Normal range of motion. No edema. SKIN: Warm, dry, no rash. NEURO: No focal deficits. Alert and oriented x3. PSYCH: Normal mood and affect Course Course Emergency Course: Patient updated on her workup, resting comfortably. Agrees with plan of care Vital Signs Vital signs: Vital Signs Temperature 97.2 F L 05/10/25 10:34 Pulse Rate 80 05/10/25 10:34 Respiratory Rate 16 05/10/25 10:34 Blood Pressure 141/96 H 05/10/25 10:34 Pulse Oximetry 100 05/10/25 10:34 Oxygen Delivery Room Air 05/10/25 10:34 Temperature 97.2 F L 05/10/25 10:34 Pulse Rate 86 05/10/25 15:00 Respiratory Rate 14 05/10/25 15:00 Blood Pressure 124/88 05/10/25 15:00 Pulse Oximetry 96 05/10/25 15:00 Oxygen Delivery Room Air 05/10/25 10:34 MDM - Chest Pain MDM Narrative Medical decision making narrative: Patient presents the emergency department for left-sided chest pain, intermittent since this morning. She is in no acute distress. Her vitals are stable. Cbc metabolic panel without concerning findings. Lipase is normal. EKG without acute ST changes, baseline and 3 hour troponin are negative. Her heart score is 3. CTA chest PE obtained for further evaluation. No acute cardiopulmonary abnormality. Patient and family updated on workup and agree with plan of care. She is to follow up with her primary provider. She was given warnings to return to the ER Differential Diagnosis Differential diagnosis: Likely stable angina, atypical chest pain, costochondritis, chest pain and other (pneumonia, PE) Lab Data Attestation: I reviewed the patient's lab results. 05/10/25 10:22 05/10/25 10:22 Labs: Lab Results 05/10/25 05/10/25 Range/Units 10:22 14:09 WBC 4.7 (4.5-10.0) K/mm3 RBC 4.31 (4.2-5.4) M/mm3 Hgb 13.2 (12.0-15.0) g/dL Hct 38.9 (37.0-47.0) % MCV 90.3 (80-100) fl MCH 30.6 (26-34) pg MCHC 33.9 (32-36) g/dl RDW 12.7 (11.5-14.5) % Plt Count 263 (150-375) k/mm3 MPV 9.6 (7.4-10.4) fl Immature Gran % (Auto) 0.2 (0-0.5) % Neut % (Auto) 65.0 (45.5-73.1) % Lymph % (Auto) 22.6 (18.3-44.2) % Morrill % (Auto) 8.9 H (2.6-8.5) % Eos % (Auto) 2.5 (0-4.4) % Baso % (Auto) 0.8 (0.2-1.2) % Lymph # (Auto) 1.07 (0.9-3.2) K/mm3 Morrill # (Auto) 0.4 (0.1-0.6) K/mm3 Eos # (Auto) 0.1 (0-0.3) K/mm3 Baso # (Auto) 0.0 (0.0-0.1) K/mm3 Abs Immat Gran (auto) 0.01 (0.00-0.031) K/mm3 Absolute Neuts (auto) 3.1 (1.3-6.7) K/mm3 Absolute Nucleated RBC 0.000 (0.0-0.012) K/mm3 Nucleated RBC % 0.0 (0.0-0.2) % PT 12.3 (11.1-14.7) Seconds INR 0.9 APTT 26.4 (22.3-36.8) Seconds D-Dimer 0.51 H (<0.48) ug/mL Sodium 134 L (137-145) mmol/L Potassium 3.8 (3.4-5.0) mmol/L Chloride 98 (98-107) mmol/L Carbon Dioxide 27 (22-30) mmol/L Anion Gap 9 (4-12) mmol/L BUN 11 (7-17) mg/dL Creatinine 0.61 L (0.7-1.0) mg/dL Estim Creat Clear Calc 85 ml/min Estimated GFR > 60 (59 - ) Glucose 118 H (65-110) mg/dL Calcium 9.9 (8.4-10.2) mg/dL Total Bilirubin 0.4 (0.2-1.3) mg/dL AST 32 (14-36) U/L ALT 25 (6-35) U/L Alkaline Phosphatase 77 (38-126) U/L Troponin I < 0.012 < 0.012 (0.000-0.034) ng/mL Total Protein 7.8 (6.3-8.2) g/dL Albumin 4.4 (3.5-5.1) g/dL Lipase 44 (23-300) U/L Imaging Data Radiologist's impression: ITS Impressions Chest X-Ray 05/10/25 13:48 IMPRESSION: No acute process. Chest CTA 05/10/25 14:09 IMPRESSION: No pulmonary embolus. No thoracic aortic dissection. Redemonstration of aneurysmal dilatation of the ascending thoracic aorta, largely unchanged in size from 2022. Critical Care Time Critical Care Time Critical Care Time: No Discharge Plan Discharge Clinical Impression: Chest pain Qualifiers: Chest pain type: unspecified Qualified Code(s): R07.9 - Chest pain, unspecified Patient Disposition: Home Condition: Stable Instructions: Chest Pain (ED) Additional Instructions: Return to the emergency department if you experience fever, chest pain, shortness of breath, abdominal pain with nausea and vomiting, or any other symptoms that are concerning to you. Follow up with your primary care doctor Patient Language: Namibian Prescriptions: No Action latanoprost 0.005 % drops, emulsion 1 drp EACH EYE QPM timolol 0.5 % drops 1 drp EACH EYE Q12H gabapentin 300 mg capsule 300 mg PO TID Qty: 300 3RF ondansetron 8 mg tablet,disintegrating 8 mg PO Q12H PRN (Reason: nausea and vomiting) Qty: 20 0RF rizatriptan 10 mg tablet See Rx Instructions .ROUTE .COMPLEX Qty: 18 3RF Dose Instruction: TAKE 1 TAB AT ONSET OF HEADACHE IF NO RELIEF MAY REPEAT 1 TAB AFTER AT LEAST 2 HRS MAX 3/DAY Rx Instructions: TAKE 1 TAB AT ONSET OF HEADACHE IF NO RELIEF MAY REPEAT 1 TAB AFTER AT LEAST 2 HRS MAX 3/DAY cholecalciferol (vitamin D3) 1,250 mcg (50,000 unit) capsule See Rx Instructions .ROUTE .COMPLEX Qty: 12 1RF Dose Instruction: TAKE 1 CAPSULE BY MOUTH ONE TIME PER WEEK Rx Instructions: TAKE 1 CAPSULE BY MOUTH ONE TIME PER WEEK lansoprazole 30 mg capsule,delayed release(DR/EC) See Rx Instructions .ROUTE .COMPLEX Qty: 90 1RF Dose Instruction: TAKE 1 CAPSULE BY MOUTH EVERY DAY Rx Instructions: TAKE 1 CAPSULE BY MOUTH EVERY DAY amlodipine 5 mg tablet See Rx Instructions .ROUTE .COMPLEX Qty: 90 1RF Dose Instruction: TAKE 1 TABLET BY MOUTH EVERY DAY Rx Instructions: TAKE 1 TABLET BY MOUTH EVERY DAY losartan 100 mg tablet See Rx Instructions .ROUTE .COMPLEX Qty: 90 1RF Dose Instruction: TAKE 1 TABLET BY MOUTH EVERY DAY Rx Instructions: TAKE 1 TABLET BY MOUTH EVERY DAY metformin 1,000 mg tablet See Rx Instructions .ROUTE .COMPLEX Qty: 90 1RF Dose Instruction: TAKE 1 TABLET BY MOUTH EVERY DAY Rx Instructions: TAKE 1 TABLET BY MOUTH EVERY DAY sertraline 50 mg tablet See Rx Instructions .ROUTE .COMPLEX Qty: 90 3RF Dose Instruction: TAKE 1 TABLET BY MOUTH DAILY Rx Instructions: TAKE 1 TABLET BY MOUTH DAILY levothyroxine 88 mcg tablet See Rx Instructions .ROUTE .COMPLEX Qty: 90 1RF Dose Instruction: TAKE 1 TABLET BY MOUTH EVERY DAY Rx Instructions: TAKE 1 TABLET BY MOUTH EVERY DAY Follow-up/Referrals: Valentina Johnson APRN [Primary Care Provider] - Quality HEART score for chest pain patients History: slightly suspicious ECG: normal Age: > 45 and < 65 years Risk factors: > or = to 3 risk factors of atherosclerotic disease Troponin: < or = to 1x normal limit Heart score: 3
--- NOTE | 2025-05-10 13:21 | ECG_ITS ---
Test Date: 2025-05-10 13:23:36 Measurements Intervals [place] Rate: 77 P: 46 CT: 155 QRS: -6 QRSD: 86 T: 35 QT: 359 QTc: 409 Interpretive Statements SINUS RHYTHM Compared to ECG 05/10/2025 10:19:01 No significant changes Electronically Signed On 05-10-2025 22:14:11 CDT by Diogo Maxwell M.D.
[2025-05-10 14:46] LABS: Troponin I < 0.012 ng/mL (0.000-0.034)
--- NOTE | 2025-05-10 15:10 | PC.NURSE ---
Report given to RUTHANN Win
== END 2025-05-10 16:05 | disposition home or self-care (01) ==
PROVIDERS: Emergency Medicine; Emergency Provider Physician Assistant; PCP Nurse Practitioner Adult Health
DX: R07.9 Chest pain, unspecified (principal); G47.33 Obstructive sleep apnea (adult) (pediatric); E03.9 Hypothyroidism, unspecified; M81.0 Age-related osteoporosis without current pathological fracture; J45.909 Unspecified asthma, uncomplicated; I10 Essential (primary) hypertension; H40.9 Unspecified glaucoma
CPT/HCPCS: 36415; 71046; 71275; 80053; 83690; 84484; 85025; 85380; 85610; 85730; 93005; 99284; Q9967

== ENCOUNTER 2025-05-17 14:25 | Outpatient (CLI) | payer BC, SELFPAY ==
--- NOTE | ~2025-05-17 | XR_ITS ---
EXAM: XR knee RT 3V, XR knee LT 3V DATE: 05/17/2025 14:39 HISTORY: chronic bilat knee pain below patella . COMPARISON: None available. FINDINGS: Decreased mineralization. No fracture or dislocation. No lytic or blastic lesion. Mild chris ateral medial joint space narrowing. Mild tricompartmental osteophytosis bilaterally. Bilateral quadr iceps enthesopathy and minimal patellar enthesopathy. Minimal bilateral joint fluid. No erosion or pe riosteal change. Soft tissues within normal limits. IMPRESSION: Osteopenia. Mild tricompartmental bilateral knee osteoarthritis. Small bilateral knee juan ramon nt effusions. Reviewed, dictated and finalized at location K. IMPRESSION: Osteopenia. Mild tricompartmental bilateral knee osteoarthritis. Sm all bilateral knee joint effusions.
[2025-05-17 18:40] LABS: Alanine Aminotransferase 25 U/L (6-35); Albumin Level 4.6 g/dL (3.5-5.1); Alkaline Phosphatase 87 U/L (38-126); Anion Gap 11 mmol/L (4-12); Aspartate Amino Transferase 49 U/L (14-36); Bilirubin,Total 0.4 mg/dL (0.2-1.3); Blood Urea Nitrogen 12 mg/dL (7-17); Calcium 10.0 mg/dL (8.4-10.2); Carbon Dioxide 24 mmol/L (22-30); Chloride 98 mmol/L (98-107); Cholesterol 263 mg/dL (0-200); Estimated Glomerular Filt Rate > 60; Glucose 99 mg/dL (65-110); HDL Direct 54 mg/dL; Potassium 4.3 mmol/L (3.4-5.0); Sodium 133 mmol/L (137-145); Total Protein 8.3 g/dL (6.3-8.2); Triglycerides 152 mg/dL (<150)
[2025-05-17 19:05] LABS: Hemoglobin A1C 5.8 % (<5.7)
[2025-05-17 19:15] LABS: Thyroid Stimulating Hormone 1.570 uIU/mL (0.465-4.680)
== END 2025-05-17 14:26 | disposition home or self-care (01) ==
LOC: ANHBWCLAB 14:27
PROVIDERS: PCP Nurse Practitioner Adult Health; Visit Provider Nurse Practitioner Adult Health
DX: M85.88 Other specified disorders of bone density and structure, other site (principal); M17.0 Bilateral primary osteoarthritis of knee; M25.462 Effusion, left knee; M25.461 Effusion, right knee; I10 Essential (primary) hypertension; R73.9 Hyperglycemia, unspecified; R73.03 Prediabetes; E03.9 Hypothyroidism, unspecified
CPT/HCPCS: 36415; 73562; 80053; 80061; 83036; 84443

== ENCOUNTER 2025-08-05 13:11 | Outpatient (CLI) | payer BC, SELFPAY ==
--- OUTSIDE RECORDS SUMMARY | 2025-08-05 13:15 | XMS_ITS | Encounter Summary ---
Author Organization [facility] Address [address] [place] [address] Care Team Providers Care Physics Department Chair Name Role Phone Unavailable Primary Care Provider Unavailabl e Encounter Details Date Type Department Care Team (Late st Contact Info) Description 10/09/2000 Outpatient Historical [facility] MRI DEPT Sohail Adair MD 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
--- OUTSIDE RECORDS SUMMARY | 2025-08-05 13:15 | XMS_ITS | Clinical Summary ---
Author Organization [facility] Address [address] [place] [address] Care Team Providers Care Project Intern Name Role Phone Avinash Chavez MD Primary Care Provider [phone] Source Comments [facility],non-owned Affiliates and Associated Physician Practices is amultiple site organization consisting of ambulatory clinics and hospital sitesin [place], [place], [place] and [place]. This disclosure is being madepursuant to the Care Everywhere program and may not contain all information available regarding this patient. Last updated 18.[facility] Allergies Active Allergy Reactions Criticality Noted Date [...] mg Oral DAILY WITH BREAKFAST, Reported on 07/14/2025 levothyroxine (SYNTHROID) 88 MCG tablet TAKE 1 TABLET BY MOUTH EVERY DAY 90 tablet 1 0 Active Additional Information Patient taking differently: 88 mcg Oral DAILY BEFORE BREAKFAST, Reported on 07/14/2025 lansoprazole (PREVACID) 30 MG capsule TAKE ONE CAPSULE BY MOUTH ONCE DAILY BEFORE BREAKFAST 90 capsule 1 1 Active Additional Information Patient taking differently: 30 mg Oral DAILY BEFORE BREAKFAST, Reported on 07/14/2025 rizatriptan (MAXALT) 10 MG tablet TAKE ONE TABLET BY MOUTH ONCE AT FIRST SIGN OF MIGRAINE MAY REPEAT ONE TIME AFTER 2 HOURS IF NEEDED 9 tablet 2 1 Active Additional Information Patient taking differently: 10 mg Oral ONCE, Reported on 07/14/2025 FLETCHER CONTOUR NEXT TEST test strip Use 1 (one) strip as directed 2 Active Microlet Lancets MISC Use 1 Each as directed 2 Active Cholecalciferol (vitamin D3) 1.25 MG (99925 UT) capsule Take 1 (one) capsule by [...] tablet by mouth once daily 5 Active Hospital, Clinic, or Other Facility Administered Medication Ordered Dose Route Frequency Start Date End Date Status onabotulinumtoxin A (BOTOX) injection 5 UnitsIndications:Laryngeal spasm,Spasmodic dysphonia,Hoarseness 5 Units IM ONCE 07/14/2025 07/14/2025 Ende d Active Problems Problem Noted Date Diagnosed Date [...] Encounters Date Type Department Care Team Description 07/14/2025 1:15 PM CDT Procedure visit [facility] - ENT [address] [place] [address] Twan Will MD Laryngeal spasm ; Spasmodic dysphonia; Hoarseness 07/14/2025 Travel from Last 3 Months Immunizations Immunization [...] on file Legal Sex Female 4:31 AM INTEGRATED CIRCUIT DESIGN ENGINEER Gender Identity Not on file Sexual Orientation Not on file Last Filed Vital Signs Vital Sign Reading Time Taken Comments Blood Pressure 121/81 07/05/2022 8:32 AM CDT Pulse 87 07/05/2022 8:32 AM CDT Temperature 36.7 C (98.1 F) 07/05/2022 8:32 AM CDT Respiratory Rate 18 09/08/2018 12:19 PM INTEGRATED CIRCUIT DESIGN ENGINEER Oxygen Saturation 96% 09/08/2018 12:19 PM INTEGRATED CIRCUIT DESIGN ENGINEER Inhaled Oxygen Concentration - - Weight 87.5 kg (193 lb) 12/04/2024 11:19 AM INTEGRATED CIRCUIT DESIGN ENGINEER reported Height 160 cm (5' 3) 12/04/2024 11:19 AM INTEGRATED CIRCUIT DESIGN ENGINEER re ported Body Mass Index 34.19 12/04/2024 11:19 AM INTEGRATED CIRCUIT DESIGN ENGINEER Plan of Treatment Health Maintenance Due Date [...] - Risk 60-74 years 1-dose series) 2020 SCREENING FOR DIABETES 12/01/2023 , 12/01/2020, 07/21/2020, Additional history exists DEPRESSION SCREENING 11/04/2024 COVID-19 VACCINE ( season) 2025 06/12/2022, 02/06/2021, 01/15/2021 INFLUENZA VACCINE (#1) 2025 4, 09/18/2023, 08/20/2023, Additional history exists LIPID TESTING 03/30/2026 03/30/2021, 11/05, 07/21/2020, Additional history exists MAMMOGRAM 04/15/2027 04/15/2025, 04/04, 12/27/2023, Additional history exists COLON MONITORING 09/08/2028 09/08/2018, [...] 140/90 Blood Pressure 121/81(2021 8:32 AM CDT) No Marce Mistry MA Note: Caring for Your High Blood [...] Where can I go for more information? [place] [employer] National Center: http://www.americanheart.org 1. In the top header, click C onditions . 2. In the top header, click h igh blood pressure. 3. For a printable blood pressure tracker, scroll toward the bottom of the page to Related Tools, and click H BP Trackers. 1-806-EKD-[place]-1 or ( ) National Heart, Lung and Blood [place]: http://www.nhlbi.nih.gov/health/infoctr/index.htm Procedures Procedure Name Priority Date/Time Associated Diagnosis Comments ND CHEMODENER MUSCLE LARYNX EMG Routine 07/14/2025 1:25 PM CDT Laryngeal spasm Spasmodic dysphonia Hoarseness COMPREHENSIVE METABOLIC PANEL Routine 12/01/2020 2:28 PM INTEGRATED CIRCUIT DESIGN ENGINEER Hyperinsulinism Hyperlipidemia, unspecified hyperlipidemia type Dysmetabolic syndrome X Hypothyroidism due to acquired atrophy of thyroid Essential hypertension Neuropathy LIPID PROFILE Routine 12/01/2020 2:28 PM INTEGRATED CIRCUIT DESIGN ENGINEER Hyperinsulinism Hyperlipidemia, unspecified hyperlipidemia type Dysmetabolic syndrome X Hypothyroidism due to acquired atrophy of thyroid Essential hypertension Neuropathy ENDOSCOPY, COLON, SCREENING Routine 09/08/2018 10:55 AM INTEGRATED CIRCUIT DESIGN ENGINEER Screen for colon cancer HEPATITIS C ANTIBODY 12/31/2013 11:53 AM INTEGRATED CIRCUIT DESIGN ENGINEER MAMMO BILATERAL DIAGNOSTIC Routine 05/28/2012 Enlarged lymph nodes from Last 3 Months or Most Recently Relevant to Health Maintenance Results * ND CHEMODENER MUSCLE LARYNX EMG (07/14/2025 1:25 PM CDT) Narrative Twan Will MD - 07/14/2025 1:25 PM CDT Twan Will MD 07/14/2025 1:51 PM HISTORY: The patient presents today with [...] this treatment medically necessary. Last injection performed: 02/26/2025 PHYSICAL EXAMINATION: Constitutional: Well developed and well [...] patient and the residual amount of botox 8.8 units was wasted. See nurses note from this date for Botox supply source Bot Type A Lot # [id number] Exp. Date: 09/2027 PROCEDURE NOTE: (Adductor spasmodic dysphonia) a 25 [...] tolerated the procedure well. Twan Will MD us Twan Will MD PROCEDURE/MINOR SURGICAL ORD ERABLES Final Result * COMPREHENSIVE METABOLIC PANEL (12/01/2020 2:28 PM INTEGRATED CIRCUIT DESIGN ENGINEER) Glucose 95 70 - 105 mg/dL [facility] [...] BLOOD SPECIMEN / Unknown 12/01/2020 2:28 PM INTEGRATED CIRCUIT DESIGN ENGINEER 12/01/2020 Narrative Resulting Agency Comment Lab Testing performed at: [address] Precious [place] [id number] Mariusz Dhaliwal DO LAB - CHEMISTRY ORDERABLES Final Result Performing Organization Address City/[facility]/ZIP Co de Phone Number [facility] INSURANCE BILL [address] [place] [address] * (ABNORMAL) LIPID PROFILE (12/01/2020 2:28 PM INTEGRATED CIRCUIT DESIGN ENGINEER) Cholesterol 243(H) <200 mg/dL [facility] INSURANCE BILL Triglycerides 248(H) <150 mg/dL [facility] INSURANCE BILL HDL Cholesterol 62 >40 mg/dL [facility] INSURANCE BILL VLDL Calculated 50(H) <=30 mg/dL [facility] INSURANCE BILL LDL Calculated 131(H) <130 mg/dL [facility] INSURANCE BILL Blood BLOOD SPECIMEN / Unknown 12/01/2020 2:28 PM INTEGRATED CIRCUIT DESIGN ENGINEER 12/01/2020 Narrative Resulting Agency Comment Lab Testing performed at: [place] [address] [place] LEE [id number] Mariusz Dhaliwal DO LAB - CHEMISTRY ORDERABLES Final Result Performing Organization Address City/[facility]/ZIP Co de Phone Number [facility] INSURANCE BILL [address] [place] [address] * ENDOSCOPY, COLON, SCREENING (09/08/2018 10:55 AM INTEGRATED CIRCUIT DESIGN ENGINEER) Report Endoscopy POC _ Patient Name: Trent [...] colon K64.8, Other hemorrhoids CPT copyright 2015 [place] [employer]. All rights reserved. The codes documented in this report are preliminary and upon nicker review may be revised to meet current compliance requirements. Dr. Jae Griffiths MD ___ Jae Griffiths MD 09/08/2018 11:48:23 AM This report has been signed electronically. Number of Addenda: 0 Note Initiated On: 09/08/2018 10:55 AM [facility] ENDOSCOPY 09/08/2018 10:5 5 AM INTEGRATED CIRCUIT DESIGN ENGINEER Jae Griffiths MD GI PROCEDURE ORDERABLES Rosalino yeimi Result - Final Performing Organization Address City/[facility] Co de Phone Number [facility] [place] [address] * HEPATITIS C ANTIBODY (12/31/2013 11:53 AM INTEGRATED CIRCUIT DESIGN ENGINEER) Hepatitis C Antibody NON-REACTI VE NON-REACT LAZ [facility] Signal to Cut-Off 0.02 <1.00 [facility] Comment: Test Performed at: [employer] [address] [place] [address] MILIND YANG DO,MPH 12/31/2013 11:5 3 AM INTEGRATED CIRCUIT DESIGN ENGINEER 12/31/2013 11:55 AM INTEGRATED CIRCUIT DESIGN ENGINEER Mariusz Dhaliwal DO LAB - CHEMISTRY ORDERABLES Final Result Performing Organization Address [facility] Co de Phone Number [facility] [address] [place] [address] * MAMMO BILATERAL DIAGNOSTIC (05/28/2012) Anatomical Region Laterality Modality Breast Other Mariusz Dhaliwal DO MAMMO ORDERABLES Final Result from Last 3 Months or Most Recently Relevant to Health Maintenance Insurance [employer] ANTHEM [address] [place] [address] ANTHEM Care Teams Project Intern Relationship Specialty Start Date End Date vAinash Chavez MD [address] [place] [address] [place] [address] PCP - General Family Medicine 06/12/23
--- OUTSIDE RECORDS SUMMARY | 2025-08-05 13:15 | XMS_ITS | Encounter Summary ---
Author Organization [facility] Address [address] [place] [address] Care Team Providers Care Manager Privacy Name Role Phone Unavailable Primary Care Provider Unavailabl e Encounter Details Date Type Department Care Team (Latest Contact Info) Description 03/08/2005 Outpatient [email or web address] [id number] [facility] [place] [facility] [place] [address] [place] [address] [facility] [address] [place] [address] BRACHIAL NEURITIS NOS (Primary Dx) Social History Tobacco Use Types Packs/Day Years Used Date Smoking Tobacco: Never Assessed Comments Unknown Sex and Gender Information Value Date Recorded Sex Assigned at Not on file 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
--- OUTSIDE RECORDS SUMMARY | 2025-08-05 13:15 | XMS_ITS | Encounter Summary ---
Author Organization [employer] Address 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
--- OUTSIDE RECORDS SUMMARY | 2025-08-05 13:15 | XMS_ITS | Clinical Summary ---
Author Organization [facility] Address [address] [place] [phone] Care Team Providers Care Physicist [employer] Name Role Phone Valentina Johnson NP Primary Care Provider [phone] Allergies Active Allergy Reactions Criticality Noted Date [...] loss Assessment & Plan (10/20/2021 2:38 PM ROVING TECHNICIAN): Stable, not well controlled; patient has not [...] CDT): Patient is known limited calorie diet, 7305-6465 calories per day Patient started to walk [...] levels Assessment & Plan (10/20/2021 2:36 PM ROVING TECHNICIAN): Stable, patient does not tolerate statin start [...] 03/06/2018 Assessment & Plan (10/20/2021 2:37 PM ROVING TECHNICIAN): Stable, continue rizatriptan 10 mg as needed for severe headaches Thoracic spine pain 03/06/2018 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 Hypertension associated with diabetes 01/03/2018 Assessment & Plan (02/22/2022 4:50 PM CDT): Stable, well controlled; blood pressure at target today Continue losartan -hydrochlorothiazide 100-25 mg daily Assessment & Plan (10/20/2021 2:37 PM ROVING TECHNICIAN): Stable well controlled, blood pressure is at target today Continue losartan-hydrochlorothiazide 100-25 mg Assessment & Plan (07/26/2021 4:43 PM CDT): Stable, well controlled, blood pressure at target No episodes of hypotension Continue Hyzaar 100-25 mg Assessment & Plan (03/30/2021 12:52 PM CDT): Stable, well controlled, will continue Hyzaar 100-25 for management of blood pressure Assessment & Plan (01/03/2018 10:31 AM ROVING TECHNICIAN): Stable. Continue on current medical regimen GERD (gastroesophageal reflux disease) 8 Assessment & Plan (02/26/2022 10:32 AM CDT): Stable, well controlled; continue Prevacid 30 mg daily Assessment & Plan (07/26/2021 4:44 PM CDT): Stable, well controlled, continue Prevacid 30 mg daily Assessment & Plan (01/03/2018 11:49 AM ROVING TECHNICIAN): Continue IV pantoprazole for GI stress ulcer prophylaxis Hypothyroidism 01/03/2018 Assessment & Plan (02/26/2022 10:32 AM CDT): Stable, patient reports feeling tired for long duration, unclear if related to thyroid disease verses uncontrolled sleep apnea Will check TSH today Assessment & Plan (10/20/2021 2:37 PM ROVING TECHNICIAN): Stable, well controlled; continue levothyroxine 88 mcg daily Will check TSH every 6-12 months Assessment & Plan (03/30/2021 12:56 PM CDT): Stable, well controlled, last TSH at target Patient has no signs or symptoms of hypo or hyperthyroidism Will continue levothyroxine 88 mcg Assessment & Plan (01/03/2018 12:35 AM ROVING TECHNICIAN): Continue with levothyroxine Controlled type 2 diabetes zuri holguin without complication, without long-term current use of insulin 01/03/2018 Assessment & Plan (02/22/2022 4:51 PM CDT): Stable, well controlled; last A1c was at target; patient is not regularly check blood sugars Continue metformin a 1000 mg daily, check A1c today Assessment & Plan (10/20/2021 2:36 PM ROVING TECHNICIAN): Stable, well controlled, last A1c was 5.5; [...] 01/03/2018 Assessment & Plan (01/04/2018 6:18 PM ROVING TECHNICIAN): Continue to treat symptomatically. Patient prefers to [...] (gastroesophageal reflux disease) Neuropathy Arthritis Diabetes mellitus Glaucoma Migraine Family History Medical History Relation [...] on file Legal Sex Female 12:04 PM ROVING TECHNICIAN Gender Identity Not on file Sexual Orientation Not on file Obstetrics History Para Term AB IAB SAB Ectopic Multiple Livin g Live Births 0 0 0 0 0 0 0 0 0 0 0 Last Filed Vital Signs Vital Sign Reading Time Taken Comments Blood Pressure 149/102 11/08/2022 1:41 PM ROVING TECHNICIAN pt has not taken her daily BP meds yet Pulse 81 11/08/2022 1:41 PM ROVING TECHNICIAN Temperature 36.8 C (98.3 F) 06/28/2022 9:44 PM CDT Respiratory Rate 18 11/08/2022 1:41 PM ROVING TECHNICIAN Oxygen Saturation 100% 11/08/2022 1:4 1 PM ROVING TECHNICIAN Inhaled Oxygen Concentration - - Weight 89.8 [...] 04/04, 09/30/2021, Additional history exists Covid-19 Vaccine ( - 2024-2 6 season) 2025 06/12/2022, 02/06/2021, 01/15/2021 Influenza Vaccine (#1) 2025 , 08/16/2021, 07/20/2020, Additional history exists Breast Cancer [...] calcification, or architectural distortion in either breast. us Self Screening Mammogram IMG MAMMO PROCEDURES Fi nal Result * eGFR (06/28/2022 9:28 PM CDT) eGFR 106 mL/min/1. 73 m2 [facility] ([place]ON[place]) Comment: Interpretive Data Reference Interval Normal >/= [...] 9:28 PM CDT 06/28/2022 9:30 PM CDT us Lui Stanley MD LAB BLOOD ORDERABLES Final R esult [facility] (JOSE E) 1 [facility] Department [place] [address] * Albumin Creatinine Ratio, Urine (04/19/2022 10:39 AM CDT) Albumin Ur 13.3 mg/L [facility] (JOSE E) Comment: Interpretive Data No reference range established. Current interpretive data was last revised 2019. Testing performed by: [facility], [address] [place] [address], [place]., [id number] Creatinine Ur 121.1 mg/dL [facility] (JOSE E) Comment: Interpretive Data No reference range established. Current interpretive data was last revised 2019. Testing performed by: [facility], [address] [place] [address], [place]., [address] Albumin Creatinine Ratio, Ur 11 1 - 29 mg/g [facility] (JOSE E) Comment:Testing performed by : [facility], [address] [place] [address]., [id number] Urine 04/19/2022 10:3 9 AM CDT 04/19/2022 5:46 PM CDT Jax Barbosa MD LAB URINE ORDERABLES Michelle l Result Performing Organization Address [facility] Co de Phone Number [facility] (JOSE E) 1 [facility] [place] [address] * (ABNORMAL) Hemoglobin A1c (04/19/2022 10:39 AM CDT) Hgb A1C 6.2(H) 4.0 - 5.6 % [facility] (JOSE E) Comment:Testing performed by : [facility], [address] [place] [address]., [id number] Estimated Average Glucose 131 mg/dL [facility] (JOSE E) Comment: The ADA recommends reporting an estimated Average Glucose (eAG) with all Hemoglobin A1c results using the equation derived from a study of 507 normal and diabetic adults. Minority populations were underrepresented and children were not included. (Diabetes Care 31:7120-1537, 2008). The eAG is not equivalent to a fasting glucose. Testing performed by: [facility], [address] [place] [address]., [id number] Blood 04/19/2022 10:3 9 AM CDT 04/19/2022 5:46 PM CDT Jax Barbosa MD LAB BLOOD ORDERABLES Michelle l Result Performing Organization Address City/[facility] Co de Phone Number [facility] (JOSE E) 1 [facility] [place] [address] * (ABNORMAL) Lipid panel (04/19/2022 10:39 AM [...] last revised on 2018. Testing performed by: [facility], [address] [place] [address]., [id number] Triglycerides 105 <=149 mg/dL [facility] ([facility] E) Comment: Interpretive Data Ages < [...] last revised on 2018. Testing performed by: [facility], [address] [place] [address]., [address] HDL 56 >=40 mg/dL [facility] ([place] E) Comment: Interpretive Data Ages < [...] last revised on 2018. Testing performed by: [address] [address] LDL, calculated 155(H) <=129 mg/dL [facility] ([place] E) Comment: Interpretive Data Ages < [...] last revised on 2018. Testing performed by: [facility], [address] [place] [address]., [id number] Non-HDL Cholesterol 176 mg/dL [facility] (JOSE [...] last revised on 2018. Testing performed by: [facility], [address] [place] [address]., [id number] Chol/HDL ratio 4 [facility] (JOSE E) Comment:Testing performed by : [facility], [address] [place] [address]., [id number] Blood 04/19/2022 10:3 9 AM CDT 04/19/2022 5:46 PM CDT us Jax Barbosa MD LAB BLOOD ORDERABLES [place] Result [facility] ([place]SE E) 1 [facility] Department [place] [address] * Diabetic Eye Exam (01/25/2022) us Historical Provider HEALTH MAINTENANCE Final Result from Last 3 Months or Most Recently Relevant to Health Maintenance Insurance [address] [place] [address] [place] [employer] [place] [facility] [address] [place], [place] [address] [facility] Member Subscriber Plan / Payer (Ef fective 2019-Present) Name:Trent Henley Relation to Subscriber:Self Name:Trent Henley Payer ID:[id number] (NAIC) Type:AETNA HMO/PPO Address: [id number] [place] [phone] [facility] Member Subscriber Plan / Payer ( fective 2022-Present) Name:Trent Henley Relation to Subscriber:Self Name:Trent Henley Payer ID:[id number] ([facility]) Type:[employer] Address: [address] [facility] ACCESS CHOICE Advance Directives For more information, please contact: [phone] * Full Code (Latest Code Status on File) Date Activated Date Inactivated Comments 01/03/2018 12:21 AM 01/05/2018 4:28 PM * Full Code Date Activated Date Inactivated Comments 01/02/2018 3:24 PM 01/03/2018 12:21 AM Care Teams Physicist [employer] Relationship Specialty Start Date End Date Valentina Johnson NP [address] [place] [address] PCP - General Nurse Practitioner 06/17/24
--- OUTSIDE RECORDS SUMMARY | 2025-08-05 13:15 | XMS_ITS | Encounter Summary ---
Author Organization [facility] Address [address] [facility] [place] [address] Care Team Providers Care Dial Screw Assembler Name Role Phone Avinash Chavez MD Primary Care Provider [phone] Encounter Details Date Type Department Care Team (Late st Contact Info) Description 10/10/2010 [facility] Outpatient Visit [facility] Medical [facility] - Family Medicine [address] [place] [phone] [place] [address] [place] [address] Social History Tobacco Use Types Packs/Day Years Used Date Smoking Tobacco: Never Alcohol Use Standard Drinks/Week Comments Yes 0 (1 standard drink = 0.6 oz pur e alcohol) Comments No Sex and Gender Information Value Date Recorded Sex Assigned at Not on file Legal Sex Female 4:31 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
--- OUTSIDE RECORDS SUMMARY | 2025-08-05 13:15 | XMS_ITS | Encounter Summary ---
Author Organization [facility] Address [address] [place] [address] Care Team Providers Care Spiritual Care Coordinator Name Role Phone Unavailable Primary Care Provider Unavailabl e Encounter Details Date Type Department Care Team (Late st Contact Info) Description 08/16/1998 Outpatient Historical [facility] Primary Care - [address] [place] [address] Gabriel Partida DO Social History Tobacco Use Types Packs/Day Years Used Date Smoking Tobacco: Never Assessed Comments Unknown Sex and Gender Information Value Date Recorded Sex Assigned at Not on file Legal Sex Female 5:20 AM VIGOUREUX PRINTER Gender Identity Not on file Sexual Orientation Not on file documented as of this encounter Plan of Treatment Not on file documented as of this encounter Visit Diagnoses Not on filedocumented in this encounter
--- OUTSIDE RECORDS SUMMARY | 2025-08-05 13:15 | XMS_ITS | Clinical Summary ---
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
[2025-08-05 15:43] LABS: Vitamin B12 > 1000.0 pg/mL (239-931)
[2025-08-09 16:07] LABS: Vit. B1, Whole Blood 117.0 nmol/L (66.5-200.0)
== END 2025-08-05 13:12 | disposition home or self-care (01) ==
PROVIDERS: PCP Nurse Practitioner Adult Health; Visit Provider Psychiatry & Neurology Neurology
DX: G62.9 Polyneuropathy, unspecified (principal); J38.3 Other diseases of vocal cords; G51.4 Facial myokymia
CPT/HCPCS: 36415; 82306; 82390; 82607; 82746; 83090; 84207; 84425